=== PATIENT | male | born 1975 | race Caucasian/White ===

== ENCOUNTER 2016-04-05 10:29 | Emergency (ER) | payer BC, OTHER ==
[2016-04-05 10:47] VITALS: BMI 27.4
[2016-04-05] MEDS ORDERED: MAGNESIUM SULF 50% (8.12 MEQ/2 ML-1 GM VIAL) IVPB ONE (11:06)
[2016-04-05] MEDS ORDERED: METOCLOPRAMIDE HCL INJECTION 10 MG/2 ML VIAL IVPUSH ONE (11:06)
[2016-04-05] MEDS ORDERED: SODIUM CHLORIDE 1,000 ML IV ONE (11:06)
[2016-04-05] MEDS ORDERED: MAGNESIUM SULF 50% (8.12 MEQ/2 ML-1 GM VIAL) ONE (11:13)
[2016-04-05] MEDS ORDERED: METOCLOPRAMIDE HCL INJECTION 10 MG/2 ML VIAL ONE (11:13)
[2016-04-05 11:32] LABS: BASOPHIL 1.2 % (0-2.0); EOSINOPHIL 1.4 % (0-4.5); MCH 30.6 pg (25.7-33.7); MCHC 34.1 g/dl (32.0-35.9); MEAN CELL VOLUME 89.9 fl (80-96); NEUTROPHILS 64.1 % (42.8-82.8); PLATELET COUNT 169 K/MM3 (134-434); WHITE BLOOD COUNT 6.5 K/mm3 (4.0-10.0)
--- NOTE | 2016-04-05 11:48 | PDOC ---
History of Present Illness - General History Source: Patient Exam Limitations: No Limitations - History of Present Illness Initial Comments: 04/05/16 11:52 The patient is a 40-year-old male, with a significant past medical history of migraine headaches, hypertension, hypercholesterolemia, gastritis, and irritable bowel syndrome who presents to the emergency department via walk-in for further evaluation of a headache. No fall, recent head trauma. Patient states that his headache feels typical of his usual headaches, which are described as starting at the back of the right side of his neck and radiate to his right eye with associated light sensitivity, right ear difficulty hearing, nausea and vomiting and is pounding in nature. Patient states that his headaches are typically alleviated after taking Imitrex (but has stopped because it makes him feel groggy). He states that his migraine headaches have been intermittent (every two weeks). He states that he typically takes Excedrin and Motrin, falls asleep and this typically resolves his migraine headaches. Patient states that last night, at approximately 23:00, he felt his typical migraine headache. He took two Excedrin tablets and went to bed, He woke up at approximately 03:00 AM this morning, vomited three times(non bloody/bilious), took Motrin. He denies Fever, chills, dizziness, speech difficulty, neck pain or stiffness, numbness, tingling, or weakness to the extremities. Allergies: Levofloxacin. Ciprofloxacin. Past Surgical History: Right SHoulder Arthroscopy. Social History: Current everyday cigarette smoker (approximately 7 cigarettes/ day). No ETOH and recreational drug use. Primary Care Physician: Dr. Vipul Calderon [phone] Neurologist: Dr. Armani Schmidt [phone] <Cynthia Peralta - Last Filed: 04/05/16 13:05> - General History Source: Patient Exam Limitations: No Limitations <Jonathon Amezcua - Last Filed: 04/05/16 14:46> - General Chief Complaint: Migraine Headache Stated Complaint: HEADACHES,MIGRANE Time Seen by Provider: 04/05/16 10:51 Past History <Cynthia Peralta - Last Filed: 04/05/16 13:05> - Past Medical History Anemia: No Asthma: No Cancer: No Cardiac Disorders: No CVA: No COPD: No CHF: No Dementia: No Diabetes: No GI Disorders: Yes (GASTRITIS, IBS, DIVERTICULOSIS) Disorders: No HTN: Yes Hypercholesterolemia: Yes Liver Disease: No Seizures: No Thyroid Disease: No Other medical history: migraine headache - Surgical History Abdominal Surgery: No Appendectomy: No Cardiac Surgery: No Cholecystectomy: No Lung Surgery: No Neurologic Surgery: No Orthopedic Surgery: Yes (RIGHT SHOULDER ARTHROSCOPY) - Psycho/Social/Smoking Cessation Hx Anxiety: No Suicidal Ideation: No Smoking History: Current every day smoker Have you smoked in the past 12 months: Yes Number of Cigarettes Smoked Daily: 7 Information on smoking cessation initiated: Yes 'Breaking Loose' booklet given: 04/05/16 Hx Alcohol Use: No Drug/Substance Use Hx: No Substance Use Type: None Hx Substance Use Treatment: No <Jonathon Amezcua - Last Filed: 04/05/16 14:46> - Past Medical History Allergies/Adverse Reactions: Allergies Allergy/AdvReac Type Severity Reaction Status Date / Time ciprofloxacin Allergy Verified 04/05/16 10:44 levofloxacin [From Levaquin] Allergy Verified 04/05/16 10:44 Home Medications: Ambulatory Orders Aspirin/Acetaminophen/Caffeine [Excedrin Migraine Caplet] 1 each PO PRN PRN Diphenhydramine [Benadryl Capsule -] 50 mg PO QID PRN #20 capsule 09/13/15 Ibuprofen 800 mg PO TID PRN #30 tablet MDD 3 09/13/15 Metoclopramide HCl [Reglan] 10 mg PO TID PRN #20 tablet MDD 3 04/05/16 Review of Systems - Review of Systems Able to Perform ROS?: Yes Comments:: 04/05/16 11:52 CONSTITUTIONAL: No reported: Fever, Chills,Generalized Weakness, Malaise, Loss of Appetite HEENT: Reported: +Photophobia. +Difficulty Hearing of the Right Ear (typically experiences this when he has his migraine headaches). No reported: Rhinorrhea, Nasal Congestion, Throat Pain, Throat Swelling, Difficulty Swallowing, Mouth Swelling, Ear Pain, CARDIOVASCULAR: No reported: Chest Pain, Syncope, Palpitations, Irregular Heart Rate, Lightheadedness, Peripheral Edema RESPIRATORY: No reported: Cough, Shortness of Breath, SOB with Exertion, Orthopnea, Wheezing , Stridor, Hemoptysis GASTROINTESTINAL: No reported: Abdominal pain, Abdominal Distension, Nausea, Vomiting, Diarrhea, Constipation, Melena, Hematochezia GENITOURINARY: No reported: Dysuria, Frequency, Urgency, Hesitancy, Flank Pain, Genital Pain MUSCULOSKELETAL: Reported: Neck Pain. No reported: Myalgia, Arthralgia, Joint Swelling, Back pain , SKIN: No reported: Rash, Itching, Pallor HEMEATOLOGIC/IMMUNOLOGIC: No reported: Easy Bleeding, Easy Bruising, Lymphadenopathy, Frequent infections ENDOCRINE: No reported: Unexplained Weight Gain, Unexplained Weight Loss, Heat Intolerance , Cold Intolerance NEUROLOGIC: Reported: Headache. No reported: Focal Weakness, Paresthesias, Vertigo, Lightheadedness, Unsteady Gait, Seizure, Mental Status Changes, Incontinence PSYCHIATRIC: No reported: Anxiety, Depression <Cynthia Peralta - Last Filed: 04/05/16 13:05> *Physical Exam - Vital Signs Last Vital Signs Temp Pulse Resp BP Pulse Ox 97.9 F 100 H 16 133/81 100 04/05/16 10:44 04/05/16 10:44 04/05/16 10:44 04/05/16 10:44 04/05/16 10:44 - Physical Exam Comments: 04/05/16 11:52 GENERAL: The patient is awake, alert, and fully oriented. Uncomfortable appearing. HEAD: Normocephalic, atraumatic. EYES: pupils 3mm and symmetrically reactive, extraocular movements intact, sclera anicteric, conjunctiva clear. ENT: Normal voice, Moist mucous membranes. NECK: Normal range of motion, supple LUNGS: Breath sounds equal, clear to auscultation bilaterally. No wheezes, no rhonchi, no rales. HEART: Regular rate and rhythm, without murmur, rub or gallop. ABDOMEN: Soft, nontender, normoactive bowel sounds. No guarding, no rebound.No CVA tenderness EXTREMITIES: Normal range of motion, no edema. No clubbing or cyanosis. No cords , erythema, or tenderness. NEUROLOGICAL: No facial assymetry, Normal speech, moving all 4 extremities spontaneously and symmetrically. sensation symmetric in extremities PSYCH: Normal mood, normal affect. SKIN: Warm, Dry, normal turgor. <Cynthia Peralta - Last Filed: 04/05/16 13:05> - Vital Signs Last Vital Signs Temp Pulse Resp BP Pulse Ox 97.9 F 100 H 16 133/81 100 04/05/16 10:44 04/05/16 10:44 04/05/16 10:44 04/05/16 10:44 04/05/16 10:44 <Jonathon Amezcua - Last Filed: 04/05/16 14:46> ED Treatment Course - LABORATORY CBC & Chemistry Diagram: 04/05/16 11:27 04/05/16 11:27 - ADDITIONAL ORDERS Additional order review: 04/05/16 11:27 RBC 4.73 MCV 89.9 MCHC 34.1 RDW 14.0 MPV 9.0 Neutrophils % 64.1 Lymphocytes % 25.9 D Monocytes % 7.4 D Eosinophils % 1.4 Basophils % 1.2 - Medications Given in the ED: ED Medications Discontinued Medications Generic Name Dose Route Start Last Admin Trade Name Freq PRN Reason Stop Dose Admin Metoclopramide HCl 10 mg 04/05/16 11:06 04/05/16 11:27 Reglan Injection - IVPUSH 04/05/16 11:07 10 mg ONCE ONE Administration <Cynthia Peralta - Last Filed: 04/05/16 13:05> - LABORATORY CBC & Chemistry Diagram: 04/05/16 11:27 04/05/16 11:27 - ADDITIONAL ORDERS Additional order review: 04/05/16 11:27 RBC 4.73 MCV 89.9 MCHC 34.1 RDW 14.0 MPV 9.0 Neutrophils % 64.1 Lymphocytes % 25.9 D Monocytes % 7.4 D Eosinophils % 1.4 Basophils % 1.2 - Medications Given in the ED: ED Medications Discontinued Medications Generic Name Dose Route Start Last Admin Trade Name Freq PRN Reason Stop Dose Admin Metoclopramide HCl 10 mg 04/05/16 11:06 04/05/16 11:27 Reglan Injection - IVPUSH 04/05/16 11:07 10 mg ONCE ONE Administration <Jonathon Amezcua - Last Filed: 04/05/16 14:46> Medical Decision Making - Medical Decision Making 04/05/16 11:43 40y M hx of migraine headaches present with headaching on the right side that starts in the back and radiates to behind his eye, is pounding in nature associated with photophobia, nausea/vomiting, similar in nature to previous headaches but more esvere than the headache he gets every 2 weeks. pt states he use to b ricky immitrex but has been off of it for seeral hears. exam unremarkable. lkely migraine headache will treat with reglan and magnesium will reassess A portion of this note was documented by scribe services under my direction. I have reviewed the details of the note, within reason, and agree with the documentation with the following case summary and management plan written by me 04/05/16 14:41 The patient's lab was reviewed and they're unremarkable. The patient's headache has completely resolved. I will discharge patient back to follow up with Dr. Blake as well as neurology. Return precautions were discussed I discussed the physical exam findings, ancillary test results and final diagnoses with the patient. I answered all of the patient's questions. The patient was satisfied with the care received and felt comfortable with the discharge plan and treatment plan. The patient will call their primary care physician within 24 hours to arrange follow-up and will return to the Emergency Department with any new, persistent or worsening symptoms. <Jonathon Amezcua - Last Filed: 04/05/16 14:46> *DC/Admit/Observation/Transfer - Attestations Scribe Attestion: 04/05/16 11:52 Documentation prepared by Cynthia Peralta, acting as medical data analyst for Jonathon Amezcua MD. <Cynthia Peralta - Last Filed: 04/05/16 13:05> - Discharge Dispostion Admit: No <Jonathon Amezcua - Last Filed: 04/05/16 14:46> Diagnosis at time of Disposition: Migraine Qualifiers: Migraine type: with aura Status migrainosus presence: without status migrainosus Intractability: not intractable Qualified Code(s): G43.109 - Migraine with aura, not intractable, without status migrainosus - Discharge Dispostion Disposition: HOME Condition at time of disposition: Improved - Prescriptions Prescriptions: Metoclopramide HCl [Reglan] 10 mg PO TID PRN #20 tablet MDD 3 PRN Reason: migraine - Referrals Referrals: Vipul Calderon MD [Primary Care Provider] - Armani Schmidt MD [Staff Physician] - - Patient Instructions Printed Discharge Instructions: DI for Migraine Additional Instructions: Return to the emergency department immediately with ANY new, persistent or worsening symptoms including headache or other concerns. You MUST call and follow up with your doctor and neurologist within 5 days for further evaluation of your symptoms. Results were discussed with you. Please make sure your doctor reviews the results of your emergency evaluation. Print Language: CUBAN
[2016-04-05 12:03] LABS: ALK PHOS 114 U/L (45-117); ANION GAP 8 (8-16); BILIRUBIN,TOTAL 0.3 mg/dL (0.2-1.0); CALCIUM 9.2 mg/dL (8.5-10.1); CO2 25 mmol/L (21-32); CREATININE 1.1 mg/dL (0.7-1.3); GLUCOSE,RANDOM 95 mg/dL (74-106); SGOT/AST 27 U/L (15-37); SGPT/ALT 33 U/L (12-78); TOT PROT 7.3 g/dl (6.4-8.2)
[2016-04-05] MEDS ORDERED: KETOROLAC TROMETHAMINE 30 MG/1 ML VIAL IVPUSH ONE (12:45)
[2016-04-05] MEDS ORDERED: KETOROLAC TROMETHAMINE 30 MG/1 ML VIAL ONE (12:46)
[2016-04-05 14:27] VITALS: BP 128/89; PULSE 77; TEMP 98.7
== END 2016-04-05 14:52 | disposition home or self-care (01) ==
LOC: JER 10:29
PROC: 3E0333Z Introduction of Anti-inflammatory into Peripheral Vein, Percutaneous Approach (ICD-10-PCS; principal; 2016-04-05)
PROC: 3E033GC Introduction of Other Therapeutic Substance into Peripheral Vein, Percutaneous Approach (ICD-10-PCS; 2016-04-05)
PROC: 3E0337Z Introduction of Electrolytic and Water Balance Substance into Peripheral Vein, Percutaneous Approach (ICD-10-PCS; 2016-04-05)
DX: G43.109 Migraine with aura, not intractable, without status migrainosus (principal); F17.210 Nicotine dependence, cigarettes, uncomplicated; I10 Essential (primary) hypertension; E78.00 Pure hypercholesterolemia, unspecified
CPT/HCPCS: 36415; 80053; 85025; 99283-25

== ENCOUNTER 2017-01-08 08:47 | Emergency (ER) | payer BC, OTHER ==
[2017-01-08 08:57] VITALS: TEMP 99.5; BMI 29.0
--- NOTE | 2017-01-08 09:02 | PDOC ---
History of Present Illness - History of Present Illness Initial Comments: 01/08/17 09:39 The patient is a 41 year old male, with a significant past medical history of migraines, who presents to the emergency department with headache and left sided chest pain. Patient states that on Friday he stood up from his chair, felt dizzy, tried to grab the wall but couldn't catch himself and fell. He states he hit his head and the right side of the back of his neck. He denies loss of consciousness. He woke up this morning with an intense, pounding migraine. He is light-sensitive but not sound sensitive. He says he took Reglan and Benadryl around 3am but it hasn't helped his symptoms. He states he has been getting headaches every other week seemingly. He states this is the worse it has gotten. He is also complaining of left-sided chest pain that worsens when he inhales. He states he has never experienced this chest pain before. He is sweating and very anxious-appearing. He denies any recent fevers or chills. He denies any recent nausea, vomit, diarrhea or constipation. He denies any recent shortness of breath. He denies any recent dysuria, frequency, urgency or hematuria. Allergies: Cipro, Levaquin Past surgical history: None reported. Neurologist: Dr. Schmidt <Neelima Strange - Last Filed: 01/08/17 09:39> <Mikala Gleason - Last Filed: 01/08/17 13:57> - General Chief Complaint: Headache Stated Complaint: CHEST PAIN, MIGRAINES Time Seen by Provider: 01/08/17 08:58 Past History <Neelima Strange - Last Filed: 01/08/17 09:39> - Past Medical History Anemia: No Asthma: No Cancer: No Cardiac Disorders: No CVA: No COPD: No CHF: No Dementia: No Diabetes: No GI Disorders: Yes (GASTRITIS, IBS, DIVERTICULOSIS) Disorders: No HTN: No Hypercholesterolemia: No Liver Disease: No Seizures: No Thyroid Disease: No - Surgical History Abdominal Surgery: No Appendectomy: No Cardiac Surgery: No Cholecystectomy: No Lung Surgery: No Neurologic Surgery: No Orthopedic Surgery: Yes (RIGHT SHOULDER ARTHROSCOPY) - Suicide/Smoking/Psychosocial Hx Smoking History: Never smoked Have you smoked in the past 12 months: Yes Number of Cigarettes Smoked Daily: 7 'Breaking Loose' booklet given: 04/05/16 Hx Alcohol Use: No Drug/Substance Use Hx: No Substance Use Type: None Hx Substance Use Treatment: No <Mikala Gleason - Last Filed: 01/08/17 13:57> - Past Medical History Allergies/Adverse Reactions: Allergies Allergy/AdvReac Type Severity Reaction Status Date / Time ciprofloxacin Allergy Verified 01/08/17 08:57 levofloxacin [From Levaquin] Allergy Verified 01/08/17 08:57 Home Medications: Ambulatory Orders Aspirin/Acetaminophen/Caffeine [Excedrin Migraine Caplet] 1 each PO PRN PRN Diphenhydramine [Benadryl Capsule -] 50 mg PO QID PRN #20 capsule 09/13/15 Metoclopramide HCl [Reglan] 10 mg PO TID PRN #20 tablet MDD 3 04/05/16 Ibuprofen 800 mg PO TID PRN MDD 3 01/08/17 Methadone [Dolophine -] 40 mg PO DAILY 01/08/17 Sumatriptan Succinate [Imitrex] 50 mg PO ONCE PRN #5 tablet 01/08/17 Review of Systems - Review of Systems Comments:: 01/08/17 09:39 GENERAL/CONSTITUTIONAL: +chills.No fever No weakness. HEAD, EYES, EARS, NOSE AND THROAT: No change in vision. No ear pain or discharge. No sore throat. GASTROINTESTINAL: No nausea, vomiting, diarrhea or constipation. GENITOURINARY: No dysuria, frequency, or change in urination. CARDIOVASCULAR: +chest pain, no shortness of breath. RESPIRATORY: No cough, wheezing, or hemoptysis. MUSCULOSKELETAL: No joint or muscle swelling or pain. No neck or back pain. SKIN: No rash NEUROLOGIC: + headache, +vertigo, no loss of consciousness, or change in strength/sensation. ENDOCRINE: No increased thirst. No abnormal weight change. HEMATOLOGIC/LYMPHATIC: No anemia, easy bleeding, or history of blood clots. ALLERGIC/IMMUNOLOGIC: No hives or skin allergy. <Neelima Strange - Last Filed: 01/08/17 09:39> *Physical Exam - Vital Signs Last Vital Signs Temp Pulse Resp BP Pulse Ox 99.5 F 108 H 20 142/91 100 01/08/17 08:54 01/08/17 08:54 01/08/17 08:54 01/08/17 08:54 01/08/17 08:54 - Physical Exam Comments: 01/08/17 09:39 GENERAL: Having an anxiety attack, hyperventilating, panicked. Keeps saying I feel very nervous HEAD: No signs of trauma EYES: PERRLA, EOMI, sclera anicteric, conjunctiva clear ENT: Auricles normal inspection, hearing grossly normal, nares patent, oropharynx clear without exudates. Moist mucosa NECK: Normal ROM, supple, no lymphadenopathy, JVD, or masses LUNGS: Breath sounds equal, clear to auscultation bilaterally. No wheezes, and no crackles HEART: Regular rate and rhythm, normal S1 and S2, no murmurs, rubs or gallops ABDOMEN: Soft, nontender, normoactive bowel sounds. No guarding, no rebound. No masses EXTREMITIES: Normal range of motion, no edema. No clubbing or cyanosis. No cords, erythema, or tenderness NEUROLOGICAL: Cranial nerves II through XII grossly intact. Normal speech, normal gait SKIN: Warm, Dry, normal turgor, no rashes or lesions noted. <Neelima Strange - Last Filed: 01/08/17 09:39> - Vital Signs Last Vital Signs Temp Pulse Resp BP Pulse Ox 99.5 F 108 H 20 142/91 100 01/08/17 08:54 01/08/17 08:54 01/08/17 08:54 01/08/17 08:54 01/08/17 08:54 <Mikala Gleason - Last Filed: 01/08/17 13:57> Heart Score/ECG Review - ECG Intrepretation Comment:: 01/08/17 09:52 sinus tach 102, nl axis, nl interval, no acute st/t wave findings <Mikala Gleason - Last Filed: 01/08/17 13:57> ED Treatment Course - Medications Given in the ED: ED Medications Discontinued Medications Generic Name Dose Route Start Last Admin Trade Name Freq PRN Reason Stop Dose Admin Acetaminophen/Butalbital/Caffeine 1 tablet 01/08/17 09:10 01/08/17 09:36 Fioricet - PO 01/08/17 09:11 1 tablet ONCE ONE Administration Diphenhydramine HCl 12.5 mg 01/08/17 09:10 01/08/17 09:33 Benadryl Injection - IVPUSH 01/08/17 09:11 12.5 mg ONCE ONE Administration Metoclopramide HCl 10 mg 01/08/17 09:10 01/08/17 09:35 Reglan Injection - IVPUSH 01/08/17 09:11 10 mg ONCE ONE Administration Sodium Chloride 1,000 ml 01/08/17 09:10 01/08/17 09:35 Normal Saline - IV 01/08/17 09:11 1,000 ml ONCE ONE Administration <Neelima Strange - Last Filed: 01/08/17 09:39> - LABORATORY CBC & Chemistry Diagram: 01/08/17 09:00 01/08/17 09:24 <Mikala Gleason - Last Filed: 01/08/17 13:57> Medical Decision Making - Medical Decision Making 01/08/17 09:31 a/p: 41yo male with lisa since friday -trauma friday where he fell and hit his head -has been taking migraine meds since (reglan and benadryl). last use was overnight last night around 3 am -labs, head ct given trauma -neuro intact -iv meds, fioricet, reassess -follows with Dr. Schmidt and has an appt for the . -hx of migraines in the past - used to take imitrex. 01/08/17 12:36 re-eval: improved but still w lisa. neuro intact. discussed imaging results with the patient and lab results. will remedicate. case discussed with DR. Schmidt who agrees with the plan, ok to d/c w imitrex and to keep appt friday w him in the office. discussed CT findings. Will follow up. 01/08/17 13:53 LISA is resolved. Pt smiling. Sitting up. stable for d/c to home. Discussed need to follow up with neurology. answered all questions. <Mikala Gleason - Last Filed: 01/08/17 13:57> *DC/Admit/Observation/Transfer - Attestations Scribe Attestion: 01/08/17 09:40 Documentation prepared by Neelima Strange, acting as veterinary medical officer for Mikala Gleason DO. <Neelima Strange - Last Filed: 01/08/17 09:39> - Discharge Dispostion Admit: No - Attestations Physician Attestion: 01/08/17 13:57 I, Dr. Mikala Gleason DO, attest that this document has been prepared under my direction and personally reviewed by me in its entirety. I further attest, that it accurately reflects all work, treatment, procedures and medical decision -making performed by me. <Mikala Gleason - Last Filed: 01/08/17 13:57> Diagnosis at time of Disposition: Migraine - Discharge Dispostion Disposition: HOME Condition at time of disposition: Stable - Prescriptions Prescriptions: Sumatriptan Succinate [Imitrex] 50 mg PO ONCE PRN #5 tablet PRN Reason: Headache - Referrals Referrals: Vipul Calderon MD [Primary Care Provider] - Armani Schmidt MD [Staff Physician] - - Patient Instructions Printed Discharge Instructions: DI for Migraine Additional Instructions: Please keep your appointment with Dr. Schmidt. Please follow up with your PMD. Please return to the ED with any further concerns. - Post Discharge Activity Forms/Work/School Notes: Back to Work
[2017-01-08] MEDS ORDERED: ACETAMINOPHEN/CAFFEINE/BUTALBITAL 1 TAB PO ONE (09:10)
[2017-01-08] MEDS ORDERED: METOCLOPRAMIDE HCL INJECTION 10 MG/2 ML VIAL IVPUSH ONE (09:10)
[2017-01-08] MEDS ORDERED: SODIUM CHLORIDE 0.9% 1000 ML INFUS.BAG IV ONE ×2 (09:10→12:34)
[2017-01-08] MEDS ORDERED: METOCLOPRAMIDE HCL INJECTION 10 MG/2 ML VIAL ONE (09:29)
[2017-01-08 09:46] LABS: BASOPHIL 0.8 % (0-2.0); EOSINOPHIL 0.3 % (0-4.5); MCH 30.4 pg (25.7-33.7); MCHC 33.5 g/dl (32.0-35.9); MEAN CELL VOLUME 90.8 fl (80-96); MEAN PLT VOLUME 9.1 fl (7.5-11.1); NEUTROPHILS 84.2 % (42.8-82.8); PLATELET COUNT 195 K/MM3 (134-434); RDW 13.5 % (11.9-15.9); WHITE BLOOD COUNT 11.5 K/mm3 (4.0-10.0)
[2017-01-08 10:06] LABS: ANION GAP 9 (8-16); CALCIUM 8.7 mg/dL (8.5-10.1); CO2 23 mmol/L (21-32); CREATININE 1.2 mg/dL (0.7-1.3); GLUCOSE,RANDOM 120 mg/dL (74-106); MAGNESIUM 1.8 mg/dL (1.8-2.4); SGOT/AST 14 U/L (15-37); SGPT/ALT 25 U/L (12-78)
[2017-01-08 10:08] LABS: ALK PHOS 101 U/L (45-117); BILIRUBIN,TOTAL 0.4 mg/dL (0.2-1.0); TOT PROT 7.4 g/dl (6.4-8.2)
[2017-01-08] MEDS ORDERED: ONDANSETRON *ODT* 4 MG TABLET ONE (10:29)
--- NOTE | 2017-01-08 11:37 | EKG ---
Test Reason : Blood Pressure : / mmHG Vent. Rate : 102 BPM Atrial Rate : 102 BPM P-R Int : 140 ms QRS Dur : 092 ms QT Int : 346 ms P-R-T Axes : 067 083 058 degrees QTc Int : 450 ms SINUS TACHYCARDIA POSSIBLE LEFT ATRIAL ENLARGEMENT BORDERLINE ECG WHEN COMPARED WITH ECG OF 23-JUN-2010 20:34, NO SIGNIFICANT CHANGE WAS FOUND Confirmed by ADOLFO HESTER MD ([id number]) on 01/08/2017 11:37:20 AM Referred By: Confirmed By:ADOLFO HESTER MD
[2017-01-08] MEDS ORDERED: DEXAMETHASONE SOD PHOSPHATE 10 MG/1 ML VIAL IVPUSH ONE (12:34)
[2017-01-08] MEDS ORDERED: KETOROLAC TROMETHAMINE 30 MG/1 ML VIAL IVPUSH ONE (12:34)
[2017-01-08] MEDS ORDERED: MAGNESIUM SULF 50% (8.12 MEQ/2 ML-1 GM VIAL) IVPB ONE (12:35)
[2017-01-08] MEDS ORDERED: DEXAMETHASONE SOD PHOSPHATE 10 MG/1 ML VIAL ONE (12:41)
[2017-01-08] MEDS ORDERED: KETOROLAC TROMETHAMINE 30 MG/1 ML VIAL ONE (12:42)
[2017-01-08] MEDS ORDERED: MAGNESIUM SULF 50% (8.12 MEQ/2 ML-1 GM VIAL) ONE (12:42)
[2017-01-08 14:12] VITALS: BP 135/71; PULSE 85
== END 2017-01-08 14:12 | disposition home or self-care (01) ==
LOC: JER 08:47
PROC: 3E0337Z Introduction of Electrolytic and Water Balance Substance into Peripheral Vein, Percutaneous Approach (ICD-10-PCS; principal; 2017-01-08)
PROC: 3E033GC Introduction of Other Therapeutic Substance into Peripheral Vein, Percutaneous Approach (ICD-10-PCS; 2017-01-08)
PROC: 3E0333Z Introduction of Anti-inflammatory into Peripheral Vein, Percutaneous Approach (ICD-10-PCS; 2017-01-08)
DX: G43.909 Migraine, unspecified, not intractable, without status migrainosus (principal); F17.210 Nicotine dependence, cigarettes, uncomplicated; K58.9 Irritable bowel syndrome, unspecified
CPT/HCPCS: 36415; 70450-TC; 71020-TC; 80053; 83735; 85025; 93005; 93010; 99283-25

== ENCOUNTER 2017-01-09 07:43 | Inpatient (IN) | payer OTHER ==
[2017-01-09 08:03] VITALS: BMI 29.0
--- NOTE | 2017-01-09 08:52 | PDOC ---
Attending Attestation - Resident Resident Name: González Marion - HPI HPI: 01/11/17 19:49 Pt presents to the ED complaining of headache consistent with previous migraine. Seen in the ED for the same complaint yesterday, felt improved after multiple doses of medication in the ED, discharged with immitrex, which he took today without relief. Patient is now extremely uncomfortable. - Physicial Exam PE: 01/11/17 19:50 Agree with resident exam . PAtient is extremely uncomfortable but is neurologically intact. - Medical Decision Making 01/11/17 19:51 Pt presents to the ED complaining of acute exacerbation of his chronic migraine. Headache is recurrent after extensive treatment yesterday. Will admit to observation for pain control for status migranius.
[2017-01-09] MEDS ORDERED: PROCHLORPERAZINE MALEATE 5 MG TABLET PO ONE (09:25)
[2017-01-09] MEDS ORDERED: KETOROLAC TROMETHAMINE 60 MG/2 ML VIAL IM ONE (09:28)
--- NOTE | 2017-01-09 09:28 | PDOC ---
History of Present Illness - General Chief Complaint: Headache Stated Complaint: PAIN TO HEAD F/UP ER VST 01/08/17 Time Seen by Provider: 01/09/17 08:33 - History of Present Illness Initial Comments: 01/09/17 09:23 41 yo M with h/o migraines who returns to ED for migraine. Patient reports left sided pulsating head pain, radiating down left sided neck to left arm with subsequent numbness/tingling beginning yesterday evening. Reports that this is the worst headache he has experienced, with gradual onset and worsening intensity. Endorses non biliary non bloody emesis, photophobia, and visual halos since yesterday evening. Denies fevers/chills, neck stiffness, weakness, chest pain, SOB, urinary complaints, GI/abdominal complaints.Recently seen in ED ( 01/09) for migraine and symptom control. Was treated with Toradol, Compazine, Reglan, Benadryl, Zofran, Dexamethasone, Magnesium sulfate with improvement in symptoms and sent home on Sumitripatan and told to f/u with neurology Friday. Negative head CT ( 01/08). Since d/c has attempted Reglan Benadryl Ibrupfrofen, and Sumitrptan 50 mg PO x 1 with no improvement in symptoms. Reports that he last saw Dr. Wilkerson 10 years ago and since then his LISA's have been treatable with Reglan, Benadryl, Ibriuofren, but since his fall ( 01/03 ) has been experiencing new onset L temporal pain and shooting down neck and L arm. PCP Dr. Vipul Calderon. Last took Sumitriptan 10 years ago. Scheduled for neurology apt. with dean Jan 23 n, Past History - Past Medical History Allergies/Adverse Reactions: Allergies Allergy/AdvReac Type Severity Reaction Status Date / Time ciprofloxacin Allergy Verified 01/09/17 07:59 levofloxacin [From Levaquin] Allergy Verified 01/09/17 07:59 Home Medications: Ambulatory Orders Aspirin/Acetaminophen/Caffeine [Excedrin Migraine Caplet] 1 each PO PRN PRN Diphenhydramine [Benadryl Capsule -] 50 mg PO QID PRN #20 capsule 09/13/15 Metoclopramide HCl [Reglan] 10 mg PO TID PRN #20 tablet MDD 3 04/05/16 Ibuprofen 800 mg PO TID PRN MDD 3 01/08/17 Methadone [Dolophine -] 40 mg PO DAILY 01/08/17 Sumatriptan Succinate [Imitrex] 50 mg PO ONCE PRN #5 tablet 01/08/17 Anemia: No Asthma: No Cancer: No Cardiac Disorders: No CVA: No COPD: No CHF: No Dementia: No Diabetes: No GI Disorders: Yes (GASTRITIS, IBS, DIVERTICULOSIS) Disorders: No HTN: No Hypercholesterolemia: No Liver Disease: No Seizures: No Thyroid Disease: No Other medical history: MIGRANES - Surgical History Abdominal Surgery: No Appendectomy: No Cardiac Surgery: No Cholecystectomy: No Lung Surgery: No Neurologic Surgery: No Orthopedic Surgery: Yes (RIGHT SHOULDER ARTHROSCOPY) - Suicide/Smoking/Psychosocial Hx Smoking History: Former smoker Have you smoked in the past 12 months: Yes Number of Cigarettes Smoked Daily: 7 Information on smoking cessation initiated: No 'Breaking Loose' booklet given: 04/05/16 Hx Alcohol Use: No Drug/Substance Use Hx: No Substance Use Type: None Hx Substance Use Treatment: No Review of Systems - Review of Systems Comments:: 01/09/17 09:46 GENERAL/CONSTITUTIONAL: No fever or chills. No weakness. HEAD, EYES, EARS, NOSE AND THROAT: No change in vision. No ear pain or discharge. No sore throat.- CARDIOVASCULAR: No chest pain or shortness of breath RESPIRATORY: No cough, wheezing, or hemoptysis. GASTROINTESTINAL: No nausea, vomiting, diarrhea or constipation. GENITOURINARY: No dysuria, frequency, or change in urination. MUSCULOSKELETAL: No joint or muscle swelling or pain. No neck or back pain. SKIN: No rash NEUROLOGIC:+ headache,change in strength/sensation.. No vertigo, loss of consciousness. ENDOCRINE: No increased thirst. No abnormal weight change HEMATOLOGIC/LYMPHATIC: No anemia, easy bleeding, or history of blood clots. ALLERGIC/IMMUNOLOGIC: No hives or skin allergy. *Physical Exam - Vital Signs Last Vital Signs Temp Pulse Resp BP Pulse Ox 98.8 F 94 H 19 133/83 99 01/09/17 07:59 01/09/17 07:59 01/09/17 07:59 01/09/17 07:59 01/09/17 07:59 - Physical Exam Comments: 01/09/17 09:46 GENERAL: Awake, alert, and fully oriented, in distress. HEAD: No signs of trauma, normocephalic, atraumatic EYES: PERRLA, EOMI, sclera anicteric, conjunctiva clear ENT: hearing grossly normal, nares patent, oropharynx clear without exudates. Moist mucosa NECK: Normal ROM, supple, no JVD, or masses LUNGS: No distress, speaks full sentences, clear to auscultation bilaterally HEART: Regular rate and rhythm, normal S1 and S2, no murmurs, rubs or gallops, peripheral pulses normal and equal bilaterally. EXTREMITIES : Normal inspection, Normal range of motion, no edema. No clubbing or cyanosis. NEUROLOGICAL: Cranial nerves II through XII grossly intact. Normal speech, normal gait, no focal sensorimotor deficits SKIN: Warm, Dry, normal turgor, no rashes or lesions noted. ED Treatment Course - LABORATORY CBC & Chemistry Diagram: 01/09/17 09:30 01/09/17 09:30 Medical Decision Making - Medical Decision Making 01/09/17 09:50 41 yo M with h/o migraines who returns to ED with worsening left sided pulsating headache radiating down left temporal head, L sided neck and arm with subsequent numbness/tingling beginning yesterday evening. Asx. with multiple episodes of non biliary, non bloody emesis. Recently seen in ED (01/09) for migraine and symptom control. ED Course ( 01/08) notable for negative head CT and treatment with Toradol, Compazine, Reglan, Benadryl, Zofran, Dexamethasone , and Magnesium sulfate with resolution of symptoms, LISA abolished. Was sent home on Sumitripatan and told to f/u with neurology Friday. Today at bedside is in distress, crying, Neuro exam benign. Hemodyanamically stable. Patient is likely admit for status migranous observation/pain control. Low suspicion for SAH. CT HEAD ( 01/08) Neg. PCP Dr. Vipul Calderon. 01/09/17 10:20 ED Course: Compazine, Toradol, Diphenhydramine, Reglan, NS 1 L IV 01/09/17 10:21 WBC: 18.1 CMP: Unremarkable 01/09/17 10:22 01/09/17 10:[address] Androne will admit for OBS/pain control *DC/Admit/Observation/Transfer Diagnosis at time of Disposition: Migraine headache with aura Qualifiers: Status migrainosus presence: with status migrainosus Intractability: not intractable Qualified Code(s): G43.101 - Migraine with aura, not intractable, with status migrainosus - Discharge Dispostion Condition at time of disposition: Stable Admit: Yes - Referrals - Patient Instructions - Post Discharge Activity
[2017-01-09] MEDS ORDERED: METOCLOPRAMIDE HCL INJECTION 10 MG/2 ML VIAL IVPUSH ONE (09:30)
[2017-01-09] MEDS ORDERED: KETOROLAC TROMETHAMINE 30 MG/1 ML VIAL IVPUSH ONE (09:37)
[2017-01-09] MEDS ORDERED: METOCLOPRAMIDE HCL INJECTION 10 MG/2 ML VIAL ONE (09:40)
[2017-01-09] MEDS ORDERED: KETOROLAC TROMETHAMINE 30 MG/1 ML VIAL ONE ×2 (09:40→13:15)
[2017-01-09 09:41] LABS: BASOPHIL 0.7 % (0-2.0); MCH 30.2 pg (25.7-33.7); MCHC 33.7 g/dl (32.0-35.9); MEAN CELL VOLUME 89.7 fl (80-96); MEAN PLT VOLUME 9.1 fl (7.5-11.1); NEUTROPHILS 78.6 % (42.8-82.8); PLATELET COUNT 218 K/MM3 (134-434); RDW 13.2 % (11.9-15.9); WHITE BLOOD COUNT 18.1 K/mm3 (4.0-10.0)
[2017-01-09] MEDS ORDERED: SODIUM CHLORIDE 1,000 ML IV STA (09:42)
[2017-01-09 10:06] LABS: ALBUMIN 4.2 g/dl (3.4-5.0); ANION GAP 10 (8-16); BILIRUBIN,TOTAL 0.6 mg/dL (0.2-1.0); CALCIUM 9.4 mg/dL (8.5-10.1); CO2 22 mmol/L (21-32); CREATININE 1.2 mg/dL (0.7-1.3); GLUCOSE,RANDOM 89 mg/dL (74-106); SGOT/AST 12 U/L (15-37); SGPT/ALT 25 U/L (12-78); TOT PROT 7.7 g/dl (6.4-8.2)
[2017-01-09 10:07] LABS: ALK PHOS 103 U/L (45-117)
[2017-01-09] MEDS ORDERED: SODIUM CHLORIDE 1,000 ML IV SCH (12:00)
[2017-01-09] MEDS ORDERED: METOCLOPRAMIDE HCL INJECTION 10 MG/2 ML VIAL IVPUSH PRN (12:51)
[2017-01-09] MEDS ORDERED: PANTOPRAZOLE SODIUM 40 MG/100 ML BAG IVPB ONE (13:14)
[2017-01-09] MEDS: KETOROLAC TROMETHAMINE 30 MG/1 ML VIAL IM PRN ×2 (13:20→22:08)
[2017-01-09] MEDS: PANTOPRAZOLE SODIUM 40 MG VIAL IVPUSH SCH (13:24)
--- NOTE | 2017-01-09 14:40 | CONSULT ---
Consult - text type - Consultation Consultation Note: Neurology History of Present Illness 41 yo M with h/o migraines who returned to ED for ongoing migraine. He reports right sided pulsating head pain, radiating down right side of the neck to right arm with subsequent numbness/tingling beginning yesterday evening. He reports the symptoms were with gradual onset and worsening intensity. Endorses non biliary non bloody emesis, photophobia, and visual halos since yesterday evening. Denies fevers/chills, neck stiffness, weakness, chest pain, SOB, urinary complaints, GI/abdominal complaints. Recently seen in ED ( 01/09) for migraine and symptom control. Was treated with Toradol, Compazine, Reglan, Benadryl, Zofran, Dexamethasone, Magnesium sulfate with improvement in symptoms and sent home on Sumitripatan and told to f/u with me on Friday. Negative head CT ( 01/08). Since d/c has attempted Reglan Benadryl Ibrupfrofen, and Sumitrptan 50 mg PO x 1 with no improvement in symptoms. during my encounter, he also endorsed symptoms of cervicalgia and cervical radiculopathaolopy and we discussed further imaging for this. We'll order an MRI of the cervical spine, though this may be his continued status migranosis. Past History - Past Medical History Allergies/Adverse Reactions: Allergies Allergy/AdvReac Type Severity Reaction Status Date / Time ciprofloxacin Allergy Verified 01/09/17 07:59 levofloxacin [From Levaquin] Allergy Verified 01/09/17 07:59 Home Medications: Ambulatory Orders Aspirin/Acetaminophen/Caffeine [Excedrin Migraine Caplet] 1 each PO PRN PRN Diphenhydramine [Benadryl Capsule -] 50 mg PO QID PRN #20 capsule 09/13/15 Metoclopramide HCl [Reglan] 10 mg PO TID PRN #20 tablet MDD 3 04/05/16 Ibuprofen 800 mg PO TID PRN MDD 3 01/08/17 Methadone [Dolophine -] 40 mg PO DAILY 01/08/17 Sumatriptan Succinate [Imitrex] 50 mg PO ONCE PRN #5 tablet 01/08/17 Anemia: No Asthma: No Cancer: No Cardiac Disorders: No CVA: No COPD: No CHF: No Dementia: No Diabetes: No GI Disorders: Yes (GASTRITIS, IBS, DIVERTICULOSIS) Disorders: No HTN: No Hypercholesterolemia: No Liver Disease: No Seizures: No Thyroid Disease: No Other medical history: MIGRANES - Surgical History Abdominal Surgery: No Appendectomy: No Cardiac Surgery: No Cholecystectomy: No Lung Surgery: No Neurologic Surgery: No Orthopedic Surgery: Yes (RIGHT SHOULDER ARTHROSCOPY) - Suicide/Smoking/Psychosocial Hx Smoking History: Former smoker Have you smoked in the past 12 months: Yes Number of Cigarettes Smoked Daily: 7 Information on smoking cessation initiated: No 'Breaking Loose' booklet given: 04/05/16 Hx Alcohol Use: No Drug/Substance Use Hx: No Substance Use Type: None Hx Substance Use Treatment: No Review of Systems GENERAL/CONSTITUTIONAL: No fever or chills. No weakness. HEAD, EYES, EARS, NOSE AND THROAT: No change in vision. No ear pain or discharge. No sore throat.- CARDIOVASCULAR: No chest pain or shortness of breath RESPIRATORY: No cough, wheezing, or hemoptysis. GASTROINTESTINAL: No nausea, vomiting, diarrhea or constipation. GENITOURINARY: No dysuria, frequency, or change in urination. MUSCULOSKELETAL: No joint or muscle swelling or pain. No neck or back pain. SKIN: No rash NEUROLOGIC:+ headache,change in strength/sensation.. No vertigo, loss of consciousness. ENDOCRINE: No increased thirst. No abnormal weight change HEMATOLOGIC/LYMPHATIC: No anemia, easy bleeding, or history of blood clots. ALLERGIC/IMMUNOLOGIC: No hives or skin allergy. *Physical Exam - Vital Signs Last Vital Signs Temp Pulse Resp BP Pulse Ox 98.8 F 94 H 19 133/83 99 01/09/17 07:59 01/09/17 07:59 01/09/17 07:59 01/09/17 07:59 01/09/17 07:59 GENERAL: Awake, alert, and fully oriented, in distress. HEAD: No signs of trauma, normocephalic, atraumatic EYES: PERRLA, EOMI, sclera anicteric, conjunctiva clear ENT: hearing grossly normal, nares patent, oropharynx clear without exudates. Moist mucosa NECK: Normal ROM, supple, no JVD, or masses LUNGS: No distress, speaks full sentences, clear to auscultation bilaterally HEART: Regular rate and rhythm, normal S1 and S2, no murmurs, rubs or gallops, peripheral pulses normal and equal bilaterally. EXTREMITIES : Normal inspection, Normal range of motion, no edema. No clubbing or cyanosis. NEUROLOGICAL: Cranial nerves II through XII grossly intact. Normal speech, no focal sensorimotor deficits SKIN: Warm, Dry, normal turgor, no rashes or lesions noted. CBCD WBC 18.1 K/mm3 (4.0-10.0) H D 01/09/17 09:30 RBC 5.09 M/mm3 (4.00-5.60) 01/09/17 09:30 Hgb 15.4 GM/dL (11.7-16.9) 01/09/17 09:30 Hct 45.6 % (35.4-49) 01/09/17 09:30 MCV 89.7 fl (80-96) 01/09/17 09:30 MCHC 33.7 g/dl (32.0-35.9) 01/09/17 09:30 RDW 13.2 % (11.9-15.9) 01/09/17 09:30 Plt Count 218 K/MM3 (134-434) 01/09/17 09:30 MPV 9.1 fl (7.5-11.1) 01/09/17 09:30 CMP Sodium 141 mmol/L (136-145) 01/09/17 09:30 Potassium 3.6 mmol/L (3.5-5.1) 01/09/17 09:30 Chloride 109 mmol/L (98-107) H 01/09/17 09:30 Carbon Dioxide 22 mmol/L (21-32) 01/09/17 09:30 Anion Gap 10 (8-16) 01/09/17 09:30 BUN 13 mg/dL (7-18) 01/09/17 09:30 Creatinine 1.2 mg/dL (0.7-1.3) 01/09/17 09:30 Creat Clearance w eGFR > 60 (>60) 01/09/17 09:30 Calcium 9.4 mg/dL (8.5-10.1) 01/09/17 09:30 Total Bilirubin 0.6 mg/dL (0.2-1.0) D 01/09/17 09:30 AST 12 U/L (15-37) L 01/09/17 09:30 ALT 25 U/L (12-78) 01/09/17 09:30 Alkaline Phosphatase 103 U/L (45-117) 01/09/17 09:30 Total Protein 7.7 g/dl (6.4-8.2) 01/09/17 09:30 Albumin 4.2 g/dl (3.4-5.0) 01/09/17 09:30 Medical Decision Making 41 yo M with h/o migraines who returned to ED for ongoing migraine. He reports right sided pulsating head pain, radiating down right side of the neck to right arm with subsequent numbness/tingling beginning yesterday evening. He reports the symptoms were with gradual onset and worsening intensity. Endorses non biliary non bloody emesis, photophobia, and visual halos since yesterday evening. Denies fevers/chills, neck stiffness, weakness, chest pain, SOB, urinary complaints, GI/abdominal complaints. Recently seen in ED ( 01/09) for migraine and symptom control. Was treated with Toradol, Compazine, Reglan, Benadryl, Zofran, Dexamethasone, Magnesium sulfate with improvement in symptoms and sent home on Sumitripatan and told to f/u with me on Friday. Negative head CT ( 01/08). Since d/c has attempted Reglan Benadryl Ibrupfrofen, and Sumitrptan 50 mg PO x 1 with no improvement in symptoms. during my encounter, he also endorsed symptoms of cervicalgia and cervical radiculopathaolopy and we discussed further imaging for this. We'll order an MRI of the cervical spine, though this may be his continued status migranosis. Can use similar regiment as yesterday with Decadron IV 10mg, Depakene 1gm Will order MRI C spine to further evaluate cervicalgia and cervical radiculopathy Relaxation recommended Continue adequate hydration and by mouth intake Avoid any migraine triggers Pain control
[2017-01-09] MEDS: ACETAMINOPHEN 325 MG TABLET (FP) PO PRN (16:50)
[2017-01-09] MEDS: ONDANSETRON 4 MG/2 ML VIAL IVPB PRN (17:49)
--- NOTE | 2017-01-09 22:25 | HP ---
Admitting History and Physical - Primary Care Physician PCP: Vipul Calderon - Admission Chief Complaint: LISA History of Present Illness: Pt with Hx/o migraines, fell on Friday (4 days ago) hit right side of the head; pt started to develop LISA and treated at home. Yesterday he came to ER c/o severe LISA, had negative for acute injury Head CT scan, was treated in ER (with IV medication, including steroids) with improvement in LISA and DC'ed home. Last night his LISA got progressively worse ( LISA on the right side of the head, radiates to the back of the neck, and is associated with severe photophobia and blurry vision and numbness of the right arm); pt returned this AM to ER. Pt w/o fever, chills, neck stifness, running nose, confusion, motor weakness. Pt didn't see Neuro in many years, has an appt at the end of this month with Dr. Schmidt. History Source: Patient, Family Member Limitations to Obtaining History: Dementia - Past Medical History [employer]: Yes: Migraine Gastrointestinal: Yes: Irritable Bowel Disease - Smoking History Smoking history: Former smoker Have you smoked in the past 12 months: Yes Aproximately how many cigarettes per day: 7 - Alcohol/Substance Use Hx Alcohol Use: No Home Medications - Allergies Allergies/Adverse Reactions: Allergies Allergy/AdvReac Type Severity Reaction Status Date / Time ciprofloxacin Allergy Verified 01/09/17 07:59 levofloxacin [From Levaquin] Allergy Verified 01/09/17 07:59 - Home Medications Home Medications: Ambulatory Orders Aspirin/Acetaminophen/Caffeine [Excedrin Migraine Caplet] 1 each PO PRN PRN Diphenhydramine [Benadryl Capsule -] 50 mg PO QID PRN #20 capsule 09/13/15 Metoclopramide HCl [Reglan] 10 mg PO TID PRN #20 tablet MDD 3 04/05/16 Ibuprofen 800 mg PO TID PRN MDD 3 01/08/17 Methadone [Dolophine -] 48 mg PO DAILY 01/08/17 Sumatriptan Succinate [Imitrex] 50 mg PO ONCE PRN #5 tablet 01/08/17 Review of Systems - Review of Systems Constitutional: denies: Chills, Fever Eyes: reports: Blurred Vision, Photophobia, Recent Change in Vision. denies: Double Vision HENT: denies: Difficult Swallowing, Ear Discharge, Nasal Congestion, Throat Pain Neck: denies: Pain on Movement, Stiffness Cardiovascular: denies: Chest Pain, Edema, Palpitations Respiratory: denies: Cough, SOB on Exertion, Wheezing Gastrointestinal: reports: Nausea. denies: Abdominal Pain, Diarrhea Genitourinary: denies: Burning, Discharge, Dysuria Musculoskeletal: denies: Back Pain, Joint Swelling, Muscle Pain Integumentary: denies: Bruising, Eczema, Rash Neurological: denies: Change in LOC, Change in Speech, Confusion, Dizziness, Syncope Endocrine: denies: Excessive Sweating, Intolerance to Cold Hematology/Lymphatic: denies: Easily Bruised, Excessive Bleeding Psychiatric: denies: Anxiety, Depression Physical Examination Vital Signs: Vital Signs Temperature 99.4 F 01/09/17 18:00 Pulse Rate 67 01/09/17 18:00 Respiratory Rate 20 01/09/17 18:00 Blood Pressure 138/79 01/09/17 18:00 O2 Sat by Pulse Oximetry (%) 100 01/09/17 15:17 Constitutional: Yes: No Distress, Calm Eyes: Yes: Conjunctiva Clear, Other (difficult examination secondary to photophobia) HENT: Yes: Normocephalic. No: Epistaxis, Pharyngeal Erythema, Rhinnorhea, Thrush Neck: Yes: Trachea Midline. No: Lymphadenopathy Cardiovascular: Yes: Regular Rate and Rhythm, S1, S2 Respiratory: Yes: Regular, CTA Bilaterally. No: Rales Gastrointestinal: Yes: Normal Bowel Sounds, Soft. No: Tenderness ...Rectal Exam: Yes: Deferred Renal/: No: CVA Tenderness - Left, CVA Tenderness - Right Extremities: No: Cold, Cool Edema: No Neurological: Yes: Alert, Oriented, Other (motor and sensory examination is symmetric in UE/ LE/ face) Psychiatric: Yes: Alert, Oriented Labs: CBC, BMP 01/09/17 09:30 01/09/17 09:30 Imaging - Results Cat Scan: Report Reviewed Problem List - Problems (1) Intractable complicated migraine with status migrainosus Code(s): G43.911 - MIGRAINE, UNSPECIFIED, INTRACTABLE, WITH STATUS MIGRAINOSUS (2) Leukocytosis Assessment/Plan: probable from steroids; to moniotr fever curve, repeate CBC in AM Code(s): D72.829 - ELEVATED WHITE BLOOD CELL COUNT, UNSPECIFIED Assessment/Plan IV Toradol IV Zofran IV fluids IV Zofran Neurology consult. If not better to send pt for repeated Head CT scan. AM labs
[2017-01-10] MEDS: KETOROLAC TROMETHAMINE 30 MG/1 ML VIAL IM PRN ×2 (05:39→21:51)
[2017-01-10 07:44] LABS: MCH 30.3 pg (25.7-33.7); MCHC 33.1 g/dl (32.0-35.9); MEAN CELL VOLUME 91.3 fl (80-96); MEAN PLT VOLUME 9.4 fl (7.5-11.1); PLATELET COUNT 171 K/MM3 (134-434); RDW 13.3 % (11.9-15.9); WHITE BLOOD COUNT 9.3 K/mm3 (4.0-10.0)
[2017-01-10 08:31] LABS: ALBUMIN 3.7 g/dl (3.4-5.0); ALK PHOS 84 U/L (45-117); ANION GAP 13 (8-16); BILIRUBIN,TOTAL 0.6 mg/dL (0.2-1.0); CALCIUM 8.5 mg/dL (8.5-10.1); CO2 19 mmol/L (21-32); GLUCOSE,RANDOM 80 mg/dL (74-106); SGOT/AST 15 U/L (15-37); SGPT/ALT 21 U/L (12-78); TOT PROT 6.6 g/dl (6.4-8.2)
[2017-01-10] MEDS ORDERED: METHADONE HCL 10 MG TABLET PO SCH (09:15)
[2017-01-10] MEDS ORDERED: METHADONE HCL 5 MG TABLET PO SCH (09:15)
--- NOTE | 2017-01-10 09:21 | PN ---
Progress Note, Physician History of Present Illness: Pt with minimum improved LISA, still with numbness in his right fingers; pt with photophobia.. Pt w/o SOB, CP, palp, abd pain. 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 - Current Medication List Current Medications: Active Medications Acetaminophen (Tylenol -) 650 mg PO Q6H PRN PRN Reason: FEVER OR PAIN Last Admin: 01/09/17 16:50 Dose: 650 mg Dexamethasone Sodium Phosphate (Decadron Injection -) 10 mg IVPUSH ONCE PRN PRN Reason: HEADACHE Sodium Chloride (Normal Saline -) 1,000 mls @ 50 mls/hr IV ASDIR CARLOS Stop: 01/10/17 11:54 Last Admin: 01/09/17 13:24 Dose: 50 mls/hr Ketorolac Tromethamine (Toradol Injection -) 30 mg IM Q6H PRN PRN Reason: PAIN Stop: 01/14/17 11:53 Last Admin: 01/10/17 05:39 Dose: 30 mg Methadone HCl (Dolophine -) 5 mg PO DAILY@0600 [facility] Methadone HCl (Dolophine -) 40 mg PO DAILY@0600 [facility] Metoclopramide HCl (Reglan Injection -) 10 mg IVPUSH ONCE PRN PRN Reason: HEADACHE Ondansetron HCl (Zofran Injection) 4 mg IVPB Q8H PRN PRN Reason: NAUSEA AND/OR VOMITING Last Admin: 01/09/17 17:49 Dose: 4 mg Pantoprazole Sodium (Protonix Iv) 40 mg IVPUSH DAILY [facility] Last Admin: 01/09/17 13:24 Dose: 40 mg - Objective Vital Signs: Vital Signs Temperature 98.9 F 01/10/17 06:00 Pulse Rate 66 01/10/17 06:00 Respiratory Rate 20 01/10/17 06:00 Blood Pressure 103/64 01/10/17 06:00 O2 Sat by Pulse Oximetry (%) 100 01/09/17 21:00 Constitutional: Yes: Anxious Cardiovascular: Yes: Regular Rate and Rhythm, S1, S2 Respiratory: Yes: Regular, CTA Bilaterally. No: Rales Gastrointestinal: Yes: Normal Bowel Sounds, Soft. No: Tenderness Edema: No Neurological: Yes: Alert, Oriented Labs: CBC, BMP 01/10/17 07:20 01/10/17 07:20 Problem List - Problems (1) Intractable complicated migraine with status migrainosus Code(s): G43.911 - MIGRAINE, UNSPECIFIED, INTRACTABLE, WITH STATUS MIGRAINOSUS (2) Leukocytosis Assessment/Plan: w/i today Code(s): D72.829 - ELEVATED WHITE BLOOD CELL COUNT, UNSPECIFIED (3) Heroin use disorder, mild, on maintenance therapy Assessment/Plan: confirmed with [facility] clinic Code(s): F11.10 - OPIOID ABUSE, UNCOMPLICATED Assessment/Plan IV Toradol IV Zofran IV fluids IV Zofran Neurology consult appreciated, case was d/w Dr. Schmidt. AM labs
--- NOTE | 2017-01-10 10:06 | PN ---
Progress Note (short form) - Note Progress Note: Neurology History of Present Illness 41 yo M with h/o migraines who returned to ED for ongoing migraine. He reports right sided pulsating head pain, radiating down right side of the neck to right arm with subsequent numbness/tingling beginning yesterday evening. He reports the symptoms were with gradual onset and worsening intensity. Endorses non biliary non bloody emesis, photophobia, and visual halos since yesterday evening. Denies fevers/chills, neck stiffness, weakness, chest pain, SOB, urinary complaints, GI/abdominal complaints. Recently seen in ED ( 01/09) for migraine and symptom control. Was treated with Toradol, Compazine, Reglan, Benadryl, Zofran, Dexamethasone, Magnesium sulfate with improvement in symptoms and sent home on Sumitripatan and told to f/u with me on Friday. Negative head CT ( 01/08). Since d/c has attempted Reglan Benadryl Ibrupfrofen, and Sumitrptan 50 mg PO x 1 with no improvement in symptoms. Yesterday, he also endorsed symptoms of cervicalgia and cervical radiculopathaolopy and we discussed further imaging for this. Ordered MRI of the cervical spine. Spoke to PCP today and it seems patient was on methadone for heroin and had not received medication and this may be why he had recurrence of symptoms. Active Medications Acetaminophen (Tylenol -) 650 mg PO Q6H PRN PRN Reason: FEVER OR PAIN Last Admin: 01/09/17 16:50 Dose: 650 mg Dexamethasone Sodium Phosphate (Decadron Injection -) 10 mg IVPUSH ONCE PRN PRN Reason: HEADACHE Sodium Chloride (Normal Saline -) 1,000 mls @ 50 mls/hr IV ASDIR CARLOS Stop: 01/10/17 11:54 Last Admin: 01/09/17 13:24 Dose: 50 mls/hr Ketorolac Tromethamine (Toradol Injection -) 30 mg IM Q6H PRN PRN Reason: PAIN Stop: 01/14/17 11:53 Last Admin: 01/10/17 05:39 Dose: 30 mg Methadone HCl (Dolophine -) 5 mg PO DAILY@0600 [facility] Methadone HCl (Dolophine -) 40 mg PO DAILY@0600 [facility] Metoclopramide HCl (Reglan Injection -) 10 mg IVPUSH ONCE PRN PRN Reason: HEADACHE Ondansetron HCl (Zofran Injection) 4 mg IVPB Q8H PRN PRN Reason: NAUSEA AND/OR VOMITING Last Admin: 01/09/17 17:49 Dose: 4 mg Pantoprazole Sodium (Protonix Iv) 40 mg IVPUSH DAILY [facility] Last Admin: 01/09/17 13:24 Dose: 40 mg *Physical Exam Vital Signs Period Temp Pulse Resp BP Sys/Malagon Pulse Ox Last 24 Hr 98.3 F-99.4 F 62-85 18-20 103-138/64-79 99-100 GENERAL: Awake, alert, and fully oriented, in distress. HEAD: No signs of trauma, normocephalic, atraumatic EYES: PERRLA, EOMI, sclera anicteric, conjunctiva clear ENT: hearing grossly normal, nares patent, oropharynx clear without exudates. Moist mucosa NECK: Normal ROM, supple, no JVD, or masses LUNGS: No distress, speaks full sentences, clear to auscultation bilaterally HEART: Regular rate and rhythm, normal S1 and S2, no murmurs, rubs or gallops, peripheral pulses normal and equal bilaterally. EXTREMITIES : Normal inspection, Normal range of motion, no edema. No clubbing or cyanosis. NEUROLOGICAL: Cranial nerves II through XII grossly intact. Normal speech, no focal sensorimotor deficits SKIN: Warm, Dry, normal turgor, no rashes or lesions noted. CBCD WBC 9.3 K/mm3 (4.0-10.0) D 01/10/17 07:20 RBC 4.57 M/mm3 (4.00-5.60) 01/10/17 07:20 Hgb 13.8 GM/dL (11.7-16.9) D 01/10/17 07:20 Hct 41.8 % (35.4-49) 01/10/17 07:20 MCV 91.3 fl (80-96) 01/10/17 07:20 MCHC 33.1 g/dl (32.0-35.9) 01/10/17 07:20 RDW 13.3 % (11.9-15.9) 01/10/17 07:20 Plt Count 171 K/MM3 (134-434) D 01/10/17 07:20 MPV 9.4 fl (7.5-11.1) 01/10/17 07:20 CMP Sodium 139 mmol/L (136-145) 01/10/17 07:20 Potassium 3.7 mmol/L (3.5-5.1) 01/10/17 07:20 Chloride 107 mmol/L (98-107) 01/10/17 07:20 Carbon Dioxide 19 mmol/L (21-32) L 01/10/17 07:20 Anion Gap 13 (8-16) 01/10/17 07:20 BUN 12 mg/dL (7-18) 01/10/17 07:20 Creatinine 1.0 mg/dL (0.7-1.3) 01/10/17 07:20 Creat Clearance w eGFR > 60 (>60) 01/10/17 07:20 Calcium 8.5 mg/dL (8.5-10.1) 01/10/17 07:20 Total Bilirubin 0.6 mg/dL (0.2-1.0) 01/10/17 07:20 AST 15 U/L (15-37) D 01/10/17 07:20 ALT 21 U/L (12-78) 01/10/17 07:20 Alkaline Phosphatase 84 U/L (45-117) 01/10/17 07:20 Total Protein 6.6 g/dl (6.4-8.2) 01/10/17 07:20 Albumin 3.7 g/dl (3.4-5.0) 01/10/17 07:20 Medical Decision Making 41 yo M with h/o migraines who returned to ED for ongoing migraine. He reports right sided pulsating head pain, radiating down right side of the neck to right arm with subsequent numbness/tingling beginning yesterday evening. He reports the symptoms were with gradual onset and worsening intensity. Endorses non biliary non bloody emesis, photophobia, and visual halos since yesterday evening. Denies fevers/chills, neck stiffness, weakness, chest pain, SOB, urinary complaints, GI/abdominal complaints. Recently seen in ED ( 01/09) for migraine and symptom control. Was treated with Toradol, Compazine, Reglan, Benadryl, Zofran, Dexamethasone, Magnesium sulfate with improvement in symptoms and sent home on Sumitripatan and told to f/u with me on Friday. Negative head CT ( 01/08). Since d/c has attempted Reglan Benadryl Ibrupfrofen, and Sumitrptan 50 mg PO x 1 with no improvement in symptoms. during my encounter, he also endorsed symptoms of cervicalgia and cervical radiculopathaolopy and we discussed further imaging for this. MRI of the cervical spine pending, though this may be his continued status migranosis. Can use similar regiment of Decadron IV 10mg, Depakene 1gm (have not ordered), awaiting methadone which may improve symptoms Caution with opioids and narcotics Relaxation recommended Continue adequate hydration and by mouth intake Avoid any migraine triggers
[2017-01-10] MEDS ORDERED: METHADONE HCL 5 MG TABLET ONE (10:32)
[2017-01-10] MEDS ORDERED: METHADONE HCL 40 MG DISPERSABLE TABLET ONE (10:32)
[2017-01-10] MEDS: METHADONE 40 MG, METHADONE 5 MG PO SCH (10:39)
[2017-01-10] MEDS: PANTOPRAZOLE SODIUM 40 MG VIAL IVPUSH SCH (10:48)
[2017-01-10] MEDS ORDERED: PT OWN MED DRAWER 7, Y5N ONE (13:01)
[2017-01-10] MEDS: DEXAMETHASONE SOD PHOSPHATE 10 MG/1 ML VIAL IVPUSH PRN (13:10)
[2017-01-10] MEDS: ACETAMINOPHEN 325 MG TABLET (FP) PO PRN (18:46)
[2017-01-10] MEDS: ONDANSETRON 4 MG/2 ML VIAL IVPB PRN (18:47)
[2017-01-11] MEDS ORDERED: METHADONE HCL 40 MG DISPERSABLE TABLET ONE (05:49)
[2017-01-11] MEDS ORDERED: METHADONE HCL 5 MG TABLET ONE (05:49)
[2017-01-11] MEDS: METHADONE 40 MG, METHADONE 5 MG PO SCH (05:57)
[2017-01-11 06:57] LABS: MCH 30.2 pg (25.7-33.7); MCHC 33.6 g/dl (32.0-35.9); MEAN CELL VOLUME 89.9 fl (80-96); PLATELET COUNT 211 K/MM3 (134-434); RDW 13.2 % (11.9-15.9); WHITE BLOOD COUNT 17.1 K/mm3 (4.0-10.0)
[2017-01-11 07:42] LABS: ANION GAP 11 (8-16); CALCIUM 9.3 mg/dL (8.5-10.1); CO2 21 mmol/L (21-32); CREATININE 1.1 mg/dL (0.7-1.3); GLUCOSE,RANDOM 97 mg/dL (74-106)
[2017-01-11] MEDS: KETOROLAC TROMETHAMINE 30 MG/1 ML VIAL IM PRN ×2 (07:44→18:38)
[2017-01-11] MEDS: ONDANSETRON 4 MG/2 ML VIAL IVPB PRN (07:44)
[2017-01-11] MEDS: PANTOPRAZOLE SODIUM 40 MG VIAL IVPUSH SCH (10:45)
[2017-01-11] MEDS: ACETAMINOPHEN 325 MG TABLET (FP) PO PRN (10:45)
--- NOTE | 2017-01-11 11:24 | PN ---
Progress Note (short form) - Note Progress Note: Neurology History of Present Illness 41 yo M with h/o migraines who returned to ED for ongoing migraine. He reports right sided pulsating head pain, radiating down right side of the neck to right arm with subsequent numbness/tingling beginning yesterday evening. He reports the symptoms were with gradual onset and worsening intensity. Endorses non biliary non bloody emesis, photophobia, and visual halos since yesterday evening. Denies fevers/chills, neck stiffness, weakness, chest pain, SOB, urinary complaints, GI/abdominal complaints. Recently seen in ED ( 01/09) for migraine and symptom control. Was treated with Toradol, Compazine, Reglan, Benadryl, Zofran, Dexamethasone, Magnesium sulfate with improvement in symptoms and sent home on Sumitripatan and told to f/u with me on Friday. Negative head CT ( 01/08). Since d/c has attempted Reglan Benadryl Ibrupfrofen, and Sumitrptan 50 mg PO x 1 with no improvement in symptoms. Patient was on methadone for heroin and had not received medication and this may be why he had recurrence of symptoms. Is now much improved and stabilized. He had endorsed symptoms of cervicalgia and cervical radiculopathaolopy and we completed MRI of the cervical spine. I reviewed images and appears to be disc bulging but no spinal cord signal changes, awaiting official report. Cervicalgia also appears improved. Home Medication List Medication Instructions Recorded Confirmed Type Aspirin/Acetaminophen/Caffeine 1 each PO PRN PRN 09/13/15 01/09/17 History [Excedrin Migraine Caplet] Ibuprofen 800 mg PO TID PRN MDD 3 01/08/17 01/09/17 History Methadone [Dolophine -] 48 mg PO DAILY 01/08/17 01/09/17 History Active Medications Generic Name Dose Route Start Last Admin Trade Name Freq PRN Reason Stop Dose Admin Acetaminophen 650 mg 01/09/17 12:00 01/11/17 10:45 Tylenol - PO 650 mg Q6H PRN Administration FEVER OR PAIN Dexamethasone Sodium Phosphate 10 mg 01/09/17 12:50 01/10/17 13:10 Decadron Injection - IVPUSH 10 mg ONCE PRN Administration HEADACHE Ketorolac Tromethamine 30 mg 01/09/17 11:54 01/11/17 07:44 Toradol Injection - IM 01/14/17 11:53 30 mg Q6H PRN Administration PAIN Methadone HCl 40 mg/ Methadone 45 mg 01/10/17 10:45 01/11/17 05:57 HCl 5 mg PO 45 mg DAILY@0600 CARLOS Administration Metoclopramide HCl 10 mg 01/09/17 12:51 01/10/17 13:10 Reglan Injection - IVPUSH 10 mg ONCE PRN Administration HEADACHE Ondansetron HCl 4 mg 01/09/17 11:57 01/11/17 07:44 Zofran Injection IVPB 4 mg Q8H PRN Administration NAUSEA AND/OR VOMITING Pantoprazole Sodium 40 mg 01/09/17 12:00 01/11/17 10:45 Protonix Iv IVPUSH 40 mg DAILY CARLOS Administration *Physical Exam Vital Signs Temperature 98.2 F 01/11/17 06:00 Pulse Rate 72 01/11/17 06:00 Respiratory Rate 20 01/11/17 06:00 Blood Pressure 113/61 01/11/17 06:00 O2 Sat by Pulse Oximetry (%) 100 01/10/17 21:00 GENERAL: Awake, alert, and fully oriented, in distress. HEAD: No signs of trauma, normocephalic, atraumatic EYES: PERRLA, EOMI, sclera anicteric, conjunctiva clear ENT: hearing grossly normal, nares patent, oropharynx clear without exudates. Moist mucosa NECK: Normal ROM, supple, no JVD, or masses LUNGS: No distress, speaks full sentences, clear to auscultation bilaterally HEART: Regular rate and rhythm, normal S1 and S2, no murmurs, rubs or gallops, peripheral pulses normal and equal bilaterally. EXTREMITIES : Normal inspection, Normal range of motion, no edema. No clubbing or cyanosis. NEUROLOGICAL: Cranial nerves II through XII grossly intact. Normal speech, no focal sensorimotor deficits SKIN: Warm, Dry, normal turgor, no rashes or lesions noted. CBCD WBC 17.1 K/mm3 (4.0-10.0) H D 01/11/17 06:00 RBC 4.95 M/mm3 (4.00-5.60) 01/11/17 06:00 Hgb 14.9 GM/dL (11.7-16.9) 01/11/17 06:00 Hct 44.5 % (35.4-49) 01/11/17 06:00 MCV 89.9 fl (80-96) 01/11/17 06:00 MCHC 33.6 g/dl (32.0-35.9) 01/11/17 06:00 RDW 13.2 % (11.9-15.9) 01/11/17 06:00 Plt Count 211 K/MM3 (134-434) D 01/11/17 06:00 MPV 9.0 fl (7.5-11.1) 01/11/17 06:00 CMP Sodium 137 mmol/L (136-145) 01/11/17 06:00 Potassium 3.8 mmol/L (3.5-5.1) 01/11/17 06:00 Chloride 105 mmol/L (98-107) 01/11/17 06:00 Carbon Dioxide 21 mmol/L (21-32) 01/11/17 06:00 Anion Gap 11 (8-16) 01/11/17 06:00 BUN 14 mg/dL (7-18) 01/11/17 06:00 Creatinine 1.1 mg/dL (0.7-1.3) 01/11/17 06:00 Creat Clearance w eGFR > 60 (>60) 01/10/17 07:20 Calcium 9.3 mg/dL (8.5-10.1) 01/11/17 06:00 Total Bilirubin 0.6 mg/dL (0.2-1.0) 01/10/17 07:20 AST 15 U/L (15-37) D 01/10/17 07:20 ALT 21 U/L (12-78) 01/10/17 07:20 Alkaline Phosphatase 84 U/L (45-117) 01/10/17 07:20 Total Protein 6.6 g/dl (6.4-8.2) 01/10/17 07:20 Albumin 3.7 g/dl (3.4-5.0) 01/10/17 07:20 MRI C spine reviewed Medical Decision Making 41 yo M with h/o migraines who returned to ED for ongoing migraine. He reports right sided pulsating head pain, radiating down right side of the neck to right arm with subsequent numbness/tingling beginning yesterday evening. He reports the symptoms were with gradual onset and worsening intensity. Endorses non biliary non bloody emesis, photophobia, and visual halos since yesterday evening. Denies fevers/chills, neck stiffness, weakness, chest pain, SOB, urinary complaints, GI/abdominal complaints. Recently seen in ED ( 01/09) for migraine and symptom control. Was treated with Toradol, Compazine, Reglan, Benadryl, Zofran, Dexamethasone, Magnesium sulfate with improvement in symptoms and sent home on Sumitripatan and told to f/u with me on Friday. Negative head CT ( 01/08). Since d/c has attempted Reglan Benadryl Ibrupfrofen, and Sumitrptan 50 mg PO x 1 with no improvement in symptoms. MRI of the cervical spine reviewed, appears stable with disc bulging but no significant spinal cord signal changes Status migranosis improved Has imitrex at home and can take this as needed Would like to see me in office Relaxation recommended Continue Methadone maintenance as missed doses can precipitate his migraines Continue adequate hydration and by mouth intake Avoid any migraine triggers Can pursue physical therapy for cervicalgia Lidocaine ointment also suggested Neurologically stable at this time, likely for discharge if MRI C spine report without significant findings
--- NOTE | 2017-01-11 13:42 | PN ---
Progress Note, Physician History of Present Illness: Pt is felling better today, still with LISA; pt received last night and this AM Ketorolac IV. Pt w/o SOB, CP, palp, abd pain. 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 - Current Medication List Current Medications: Active Medications Acetaminophen (Tylenol -) 650 mg PO Q6H PRN PRN Reason: FEVER OR PAIN Last Admin: 01/11/17 10:45 Dose: 650 mg Dexamethasone Sodium Phosphate (Decadron Injection -) 10 mg IVPUSH ONCE PRN PRN Reason: HEADACHE Last Admin: 01/10/17 13:10 Dose: 10 mg Ketorolac Tromethamine (Toradol Injection -) 30 mg IM Q6H PRN PRN Reason: PAIN Stop: 01/14/17 11:53 Last Admin: 01/11/17 07:44 Dose: 30 mg Methadone HCl 40 mg/ Methadone (HCl 5 mg) 45 mg PO DAILY@0600 [facility] Last Admin: 01/11/17 05:57 Dose: 45 mg Metoclopramide HCl (Reglan Injection -) 10 mg IVPUSH ONCE PRN PRN Reason: HEADACHE Last Admin: 01/10/17 13:10 Dose: 10 mg Ondansetron HCl (Zofran Injection) 4 mg IVPB Q8H PRN PRN Reason: NAUSEA AND/OR VOMITING Last Admin: 01/11/17 07:44 Dose: 4 mg Pantoprazole Sodium (Protonix Iv) 40 mg IVPUSH DAILY [facility] Last Admin: 01/11/17 10:45 Dose: 40 mg - Objective Vital Signs: Vital Signs Temperature 98.4 F 01/11/17 10:00 Pulse Rate 73 01/11/17 10:00 Respiratory Rate 18 01/11/17 10:00 Blood Pressure 118/61 01/11/17 10:00 O2 Sat by Pulse Oximetry (%) 100 01/11/17 09:00 Constitutional: Yes: No Distress, Calm Cardiovascular: Yes: Regular Rate and Rhythm, S1, S2 Respiratory: Yes: Regular, CTA Bilaterally. No: Rales Gastrointestinal: Yes: Normal Bowel Sounds, Soft. No: Tenderness Edema: No Neurological: Yes: Alert, Oriented Labs: CBC, BMP 01/11/17 06:00 01/11/17 06:00 Problem List - Problems (1) Intractable complicated migraine with status migrainosus Code(s): G43.911 - MIGRAINE, UNSPECIFIED, INTRACTABLE, WITH STATUS MIGRAINOSUS (2) Leukocytosis Code(s): D72.829 - ELEVATED WHITE BLOOD CELL COUNT, UNSPECIFIED (3) Heroin use disorder, mild, on maintenance therapy Code(s): F11.10 - OPIOID ABUSE, UNCOMPLICATED Assessment/Plan IV Toradol IV Zofran Off IV fluids IV Zofran Trial of Motrin Q8 hours. Neurology consult appreciated. To f/u MRI report Case was d/w pt's nurse AM labs
[2017-01-11] MEDS: IBUPROFEN 600 MG TABLET (FP) PO SCH ×2 (17:10→22:28)
[2017-01-11] MEDS: DEXAMETHASONE SOD PHOSPHATE 10 MG/1 ML VIAL IVPUSH PRN (17:38)
[2017-01-12] MEDS: KETOROLAC TROMETHAMINE 30 MG/1 ML VIAL IM PRN ×2 (00:57→07:59)
[2017-01-12] MEDS: ACETAMINOPHEN 325 MG TABLET (FP) PO PRN ×2 (00:59→08:00)
[2017-01-12] MEDS ORDERED: METHADONE HCL 5 MG TABLET ONE (05:11)
[2017-01-12] MEDS ORDERED: METHADONE HCL 40 MG DISPERSABLE TABLET ONE (05:11)
[2017-01-12] MEDS: ONDANSETRON 4 MG/2 ML VIAL IVPB PRN ×2 (05:45→20:21)
[2017-01-12] MEDS: METHADONE 40 MG, METHADONE 5 MG PO SCH (06:24)
[2017-01-12] MEDS: IBUPROFEN 600 MG TABLET (FP) PO SCH (06:25)
[2017-01-12 08:42] LABS: MCH 30.4 pg (25.7-33.7); MEAN CELL VOLUME 89.4 fl (80-96); MEAN PLT VOLUME 8.5 fl (7.5-11.1); PLATELET COUNT 207 K/MM3 (134-434); RDW 13.3 % (11.9-15.9)
[2017-01-12 09:08] LABS: ANION GAP 11 (8-16); CALCIUM 8.8 mg/dL (8.5-10.1); CO2 19 mmol/L (21-32); CREATININE 1.1 mg/dL (0.7-1.3); GLUCOSE,RANDOM 88 mg/dL (74-106)
[2017-01-12] MEDS: PANTOPRAZOLE SODIUM 40 MG VIAL IVPUSH SCH (09:08)
--- NOTE | 2017-01-12 12:27 | PN ---
Progress Note, Physician History of Present Illness: Pt again with LISA; pt receiving Ketorolac IM 3-4 times per day. Pt w/o SOB, CP, palp, abd pain. Pt c/o constipation, asking for Miralax. 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 Per AM nurse (Taylor) pt with severe LISA this AM, he was crying. - Current Medication List Current Medications: Active Medications Acetaminophen (Tylenol -) 650 mg PO Q6H PRN PRN Reason: FEVER OR PAIN Last Admin: 01/12/17 08:00 Dose: 650 mg Dexamethasone Sodium Phosphate (Decadron Injection -) 10 mg IVPUSH ONCE PRN PRN Reason: HEADACHE Last Admin: 01/11/17 17:38 Dose: 10 mg Ibuprofen (Motrin -) 600 mg PO Q8H [facility] Stop: 01/13/17 14:29 Last Admin: 01/12/17 06:25 Dose: 600 mg Ketorolac Tromethamine (Toradol Injection -) 30 mg IM Q6H PRN PRN Reason: PAIN Stop: 01/14/17 11:53 Last Admin: 01/12/17 07:59 Dose: 30 mg Methadone HCl 40 mg/ Methadone (HCl 5 mg) 45 mg PO DAILY@0600 [facility] Last Admin: 01/12/17 06:24 Dose: 45 mg Metoclopramide HCl (Reglan Injection -) 10 mg IVPUSH ONCE PRN PRN Reason: HEADACHE Last Admin: 01/10/17 13:10 Dose: 10 mg Ondansetron HCl (Zofran Injection) 4 mg IVPB Q8H PRN PRN Reason: NAUSEA AND/OR VOMITING Last Admin: 01/12/17 05:45 Dose: 4 mg Pantoprazole Sodium (Protonix Iv) 40 mg IVPUSH DAILY [facility] Last Admin: 01/12/17 09:08 Dose: 40 mg - Objective Vital Signs: Vital Signs Temperature 98.8 F 01/12/17 06:15 Pulse Rate 81 01/12/17 06:15 Respiratory Rate 20 01/12/17 06:15 Blood Pressure 134/85 01/12/17 06:15 O2 Sat by Pulse Oximetry (%) 100 01/11/17 09:00 Constitutional: Yes: No Distress Cardiovascular: Yes: Regular Rate and Rhythm, S1, S2 Respiratory: Yes: Regular, CTA Bilaterally. No: Rales Gastrointestinal: Yes: Normal Bowel Sounds, Soft. No: Tenderness Edema: No Neurological: Yes: Alert, Oriented Labs: CBC, BMP 01/12/17 08:15 01/12/17 08:15 Problem List - Problems (1) Intractable complicated migraine with status migrainosus Code(s): G43.911 - MIGRAINE, UNSPECIFIED, INTRACTABLE, WITH STATUS MIGRAINOSUS (2) Leukocytosis Code(s): D72.829 - ELEVATED WHITE BLOOD CELL COUNT, UNSPECIFIED (3) Heroin use disorder, mild, on maintenance therapy Code(s): F11.10 - OPIOID ABUSE, UNCOMPLICATED (4) Constipation Code(s): K59.00 - CONSTIPATION, UNSPECIFIED (5) IBS (irritable bowel syndrome) Code(s): K58.9 - IRRITABLE BOWEL SYNDROME WITHOUT DIARRHEA (6) Bulging of intervertebral disc Assessment/Plan: of cervical spine, multilevel. Probable secondary to fall, at home. Code(s): ZFR7025 - Assessment/Plan IV Toradol IV Zofran Off IV fluids IV Zofran Trial of Motrin Q8 hours. Neurology consult appreciated. Case was d/w Dr. Schmidt; trial of Topamax; consider Tramadol. To DC Motrin. Case was d/w pt's nurse AM labs
[2017-01-12] MEDS ORDERED: KETOROLAC TROMETHAMINE 30 MG/1 ML VIAL IM PRN (12:49)
[2017-01-12] MEDS ORDERED: POLYETHYLENE GLYCOL 3350 119 GM BTL PO ONE (12:49)
[2017-01-12] MEDS ORDERED: traMADol HCL 50 MG TABLET PO PRN (12:57)
[2017-01-12] MEDS: TOPIRAMATE 25 MG TABLET (FP) PO SCH ×2 (14:36→21:17)
[2017-01-13] MEDS ORDERED: METHADONE HCL 5 MG TABLET ONE (05:32)
[2017-01-13] MEDS ORDERED: METHADONE HCL 40 MG DISPERSABLE TABLET ONE (05:32)
[2017-01-13] MEDS: METHADONE 40 MG, METHADONE 5 MG PO SCH (05:51)
[2017-01-13] MEDS: ONDANSETRON 4 MG/2 ML VIAL IVPB PRN (08:25)
[2017-01-13] MEDS: TOPIRAMATE 25 MG TABLET (FP) PO SCH ×2 (09:11→21:48)
[2017-01-13] MEDS: PANTOPRAZOLE SODIUM 40 MG VIAL IVPUSH SCH (09:11)
--- NOTE | 2017-01-13 09:46 | PN ---
Progress Note (short form) - Note Progress Note: Neurology History of Present Illness 41 yo M with h/o migraines who returned to ED for ongoing migraine. He reports right sided pulsating head pain, radiating down right side of the neck to right arm with subsequent numbness/tingling beginning yesterday evening. He reports the symptoms were with gradual onset and worsening intensity. Endorses non biliary non bloody emesis, photophobia, and visual halos since yesterday evening. Denies fevers/chills, neck stiffness, weakness, chest pain, SOB, urinary complaints, GI/abdominal complaints. Recently seen in ED ( 01/09) for migraine and symptom control. Was treated with Toradol, Compazine, Reglan, Benadryl, Zofran, Dexamethasone, Magnesium sulfate with improvement in symptoms and sent home on Sumitripatan and told to f/u with me on Friday. Negative head CT ( 01/08). Since d/c had attempted Reglan Benadryl Ibrupfrofen, and Sumitrptan 50 mg PO x 1 with no improvement in symptoms. Patient was on methadone for heroin and had not received medication and this may be why he had recurrence of symptoms. Is now much improved and stabilized. He had endorsed symptoms of cervicalgia and cervical radiculopathaolopy and we completed MRI of the cervical spine. I reviewed images and official report, mild bulging noted but significant spinal cord changes. Patient still with neck pain and had towel wrapped around his head this morning. Is on Topamax 50mg twice daily along with as needed Ultram for headaches. Active Medications Acetaminophen (Tylenol -) 650 mg PO Q6H PRN PRN Reason: FEVER OR PAIN Last Admin: 01/12/17 08:00 Dose: 650 mg Dexamethasone Sodium Phosphate (Decadron Injection -) 10 mg IVPUSH ONCE PRN PRN Reason: HEADACHE Last Admin: 01/11/17 17:38 Dose: 10 mg Methadone HCl 40 mg/ Methadone (HCl 5 mg) 45 mg PO DAILY@0600 [facility] Last Admin: 01/13/17 05:51 Dose: 45 mg Metoclopramide HCl (Reglan Injection -) 10 mg IVPUSH ONCE PRN PRN Reason: HEADACHE Last Admin: 01/10/17 13:10 Dose: 10 mg Ondansetron HCl (Zofran Injection) 4 mg IVPB Q8H PRN PRN Reason: NAUSEA AND/OR VOMITING Last Admin: 01/13/17 08:25 Dose: 4 mg Pantoprazole Sodium (Protonix Iv) 40 mg IVPUSH DAILY [facility] Last Admin: 01/13/17 09:11 Dose: 40 mg Topiramate (Topamax -) 50 mg PO BID [facility] Last Admin: 01/13/17 09:11 Dose: 50 mg Tramadol HCl (Ultram -) 50 mg PO Q8H PRN PRN Reason: PAIN Last Admin: 01/13/17 08:07 Dose: 50 mg *Physical Exam Vital Signs Period Temp Pulse Resp BP Sys/Malagon Pulse Ox Last 24 Hr 98.3 F-98.9 F 60-81 18-20 104-143/63-86 99 GENERAL: Awake, alert, and fully oriented, in distress. HEAD: No signs of trauma, normocephalic, atraumatic EYES: PERRLA, EOMI, sclera anicteric, conjunctiva clear ENT: hearing grossly normal, nares patent, oropharynx clear without exudates. Moist mucosa NECK: Normal ROM, supple, no JVD, or masses LUNGS: No distress, speaks full sentences, clear to auscultation bilaterally HEART: Regular rate and rhythm, normal S1 and S2, no murmurs, rubs or gallops, peripheral pulses normal and equal bilaterally. EXTREMITIES : Normal inspection, Normal range of motion, no edema. No clubbing or cyanosis. NEUROLOGICAL: Cranial nerves II through XII grossly intact. Normal speech, no focal sensorimotor deficits SKIN: Warm, Dry, normal turgor, no rashes or lesions noted. CBCD WBC 15.0 K/mm3 (4.0-10.0) H 01/12/17 08:15 RBC 4.75 M/mm3 (4.00-5.60) 01/12/17 08:15 Hgb 14.4 GM/dL (11.7-16.9) 01/12/17 08:15 Hct 42.4 % (35.4-49) 01/12/17 08:15 MCV 89.4 fl (80-96) 01/12/17 08:15 MCHC 34.0 g/dl (32.0-35.9) 01/12/17 08:15 RDW 13.3 % (11.9-15.9) 01/12/17 08:15 Plt Count 207 K/MM3 (134-434) 01/12/17 08:15 MPV 8.5 fl (7.5-11.1) 01/12/17 08:15 CMP Sodium 137 mmol/L (136-145) 01/12/17 08:15 Potassium 3.7 mmol/L (3.5-5.1) 01/12/17 08:15 Chloride 107 mmol/L (98-107) 01/12/17 08:15 Carbon Dioxide 19 mmol/L (21-32) L 01/12/17 08:15 Anion Gap 11 (8-16) 01/12/17 08:15 BUN 19 mg/dL (7-18) H D 01/12/17 08:15 Creatinine 1.1 mg/dL (0.7-1.3) 01/12/17 08:15 Creat Clearance w eGFR > 60 (>60) 01/10/17 07:20 Calcium 8.8 mg/dL (8.5-10.1) 01/12/17 08:15 Total Bilirubin 0.6 mg/dL (0.2-1.0) 01/10/17 07:20 AST 15 U/L (15-37) D 01/10/17 07:20 ALT 21 U/L (12-78) 01/10/17 07:20 Alkaline Phosphatase 84 U/L (45-117) 01/10/17 07:20 Total Protein 6.6 g/dl (6.4-8.2) 01/10/17 07:20 Albumin 3.7 g/dl (3.4-5.0) 01/10/17 07:20 MRI C spine reviewed Medical Decision Making 41 yo M with h/o migraines who returned to ED for ongoing migraine. He reports right sided pulsating head pain, radiating down right side of the neck to right arm with subsequent numbness/tingling beginning yesterday evening. He reports the symptoms were with gradual onset and worsening intensity. Endorses non biliary non bloody emesis, photophobia, and visual halos since yesterday evening. Denies fevers/chills, neck stiffness, weakness, chest pain, SOB, urinary complaints, GI/abdominal complaints. Recently seen in ED ( 01/09) for migraine and symptom control. Was treated with Toradol, Compazine, Reglan, Benadryl, Zofran, Dexamethasone, Magnesium sulfate with improvement in symptoms and sent home on Sumitripatan and told to f/u with me on Friday. Negative head CT ( 01/08). Since d/c has attempted Reglan Benadryl Ibrupfrofen, and Sumitrptan 50 mg PO x 1 with no improvement in symptoms. MRI of the cervical spine reviewed, stable with disc bulging but no significant spinal cord signal changes Migraine symptoms recurrent Started on Topamax 50mg twice daily Also on Ultram as needed May benefit from cyclobenzaprine for cervicalgia Relaxation recommended Continue Methadone maintenance as missed doses can precipitate his migraines Continue adequate hydration and by mouth intake Avoid any migraine triggers Can pursue physical therapy for cervicalgia as outpatient as well Has imitrex at home and can take this as needed
[2017-01-13] MEDS: CYCLOBENZAPRINE HCL 10 MG TABLET (FP) PO SCH ×2 (10:50→21:48)
--- NOTE | 2017-01-13 16:26 | PN ---
Progress Note, Physician History of Present Illness: Pt again with severe LISA ( he was crying his AM); pt receiving Toradol 3-4 times per day. Pt w/o SOB, CP, palp, abd pain. Pt c/o constipation, asking for Miralax. 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 Pt c/o right side LISA radiating to his neck. - Current Medication List Current Medications: Active Medications Acetaminophen (Tylenol -) 650 mg PO Q6H PRN PRN Reason: FEVER OR PAIN Last Admin: 01/12/17 08:00 Dose: 650 mg Cyclobenzaprine HCl (Flexeril -) 10 mg PO BID [facility] Last Admin: 01/13/17 10:50 Dose: 10 mg Dexamethasone Sodium Phosphate (Decadron Injection -) 10 mg IVPUSH ONCE PRN PRN Reason: HEADACHE Last Admin: 01/11/17 17:38 Dose: 10 mg Methadone HCl 40 mg/ Methadone (HCl 5 mg) 45 mg PO DAILY@0600 [facility] Last Admin: 01/13/17 05:51 Dose: 45 mg Metoclopramide HCl (Reglan Injection -) 10 mg IVPUSH ONCE PRN PRN Reason: HEADACHE Last Admin: 01/10/17 13:10 Dose: 10 mg Ondansetron HCl (Zofran Injection) 4 mg IVPB Q8H PRN PRN Reason: NAUSEA AND/OR VOMITING Last Admin: 01/13/17 08:25 Dose: 4 mg Pantoprazole Sodium (Protonix Iv) 40 mg IVPUSH DAILY [facility] Last Admin: 01/13/17 09:11 Dose: 40 mg Topiramate (Topamax -) 50 mg PO BID [facility] Last Admin: 01/13/17 09:11 Dose: 50 mg Tramadol HCl (Ultram -) 50 mg PO Q8H PRN PRN Reason: PAIN Last Admin: 01/13/17 08:07 Dose: 50 mg - Objective Vital Signs: Vital Signs Temperature 98.5 F 01/13/17 14:01 Pulse Rate 60 01/13/17 14:01 Respiratory Rate 20 01/13/17 14:01 Blood Pressure 121/68 01/13/17 14:01 O2 Sat by Pulse Oximetry (%) 99 01/13/17 08:30 Constitutional: Yes: Mild Distress, Other (again has his eyes covered with a towel) Cardiovascular: Yes: Regular Rate and Rhythm, S1, S2 Respiratory: Yes: Regular, CTA Bilaterally. No: Rales Gastrointestinal: Yes: Normal Bowel Sounds, Soft. No: Tenderness Edema: No Neurological: Yes: Alert, Oriented Labs: CBC, BMP 01/12/17 08:15 01/12/17 08:15 Problem List - Problems (1) Intractable complicated migraine with status migrainosus Code(s): G43.911 - MIGRAINE, UNSPECIFIED, INTRACTABLE, WITH STATUS MIGRAINOSUS (2) Leukocytosis Code(s): D72.829 - ELEVATED WHITE BLOOD CELL COUNT, UNSPECIFIED (3) Heroin use disorder, mild, on maintenance therapy Code(s): F11.10 - OPIOID ABUSE, UNCOMPLICATED (4) Constipation Code(s): K59.00 - CONSTIPATION, UNSPECIFIED (5) IBS (irritable bowel syndrome) Code(s): K58.9 - IRRITABLE BOWEL SYNDROME WITHOUT DIARRHEA (6) Bulging of intervertebral disc Assessment/Plan: of cervical spine, multilevel. Probable secondary to fall, at home. Code(s): SOE0281 - (7) Cervicalgia Code(s): M54.2 - CERVICALGIA Assessment/Plan IV Toradol IV Zofran Off IV fluids IV Decardon Neurology consult appreciated. Case was d/w Dr. Schmidt; trial of Topamax and Tramadol. To add cyclobenzaprine. To monitor as inpatient ; would be unsafe to sent pt home home as pt new medication is added, potential for interaction with other meds is high. To DC Motrin. Case was d/w pt's nurse
[2017-01-13] MEDS: ACETAMINOPHEN 325 MG TABLET (FP) PO PRN (19:42)
[2017-01-14] MEDS ORDERED: METHADONE HCL 40 MG DISPERSABLE TABLET ONE (06:26)
[2017-01-14] MEDS ORDERED: METHADONE HCL 5 MG TABLET ONE (06:27)
[2017-01-14] MEDS: METHADONE 40 MG, METHADONE 5 MG PO SCH (06:29)
[2017-01-14] MEDS: ACETAMINOPHEN 325 MG TABLET (FP) PO PRN (06:29)
[2017-01-14] MEDS: CYCLOBENZAPRINE HCL 10 MG TABLET (FP) PO SCH (09:14)
--- NOTE | 2017-01-14 10:04 | PN ---
Progress Note (short form) - Note Progress Note: Neurology History of Present Illness 41 yo M with h/o migraines who returned to ED for ongoing migraine. He reports right sided pulsating head pain, radiating down right side of the neck to right arm with subsequent numbness/tingling beginning yesterday evening. He reports the symptoms were with gradual onset and worsening intensity. Endorses non biliary non bloody emesis, photophobia, and visual halos since yesterday evening. Denies fevers/chills, neck stiffness, weakness, chest pain, SOB, urinary complaints, GI/abdominal complaints. Recently seen in ED ( 01/09) for migraine and symptom control. Was treated with Toradol, Compazine, Reglan, Benadryl, Zofran, Dexamethasone, Magnesium sulfate with improvement in symptoms and sent home on Sumitripatan and told to f/u with me on Friday. Negative head CT ( 01/08). Since d/c had attempted Reglan Benadryl Ibrupfrofen, and Sumitrptan 50 mg PO x 1 with no improvement in symptoms. Patient was on methadone for heroin and had not received medication and this may be why he had recurrence of symptoms. Is now much improved and stabilized. He had endorsed symptoms of cervicalgia and cervical radiculopathaolopy and we completed MRI of the cervical spine. I reviewed images and official report, mild bulging noted but significant spinal cord changes. Much improved this morning with Cyclobenzaprine and topamax combination. Sitting up in bed and conversive. Slight neck pain and slight headache but much better than last few days. May be able to complete discharge today. Active Medications Acetaminophen (Tylenol -) 650 mg PO Q6H PRN PRN Reason: FEVER OR PAIN Last Admin: 01/14/17 06:29 Dose: 650 mg Cyclobenzaprine HCl (Flexeril -) 10 mg PO BID [facility] Last Admin: 01/14/17 09:14 Dose: 10 mg Dexamethasone Sodium Phosphate (Decadron Injection -) 10 mg IVPUSH ONCE PRN PRN Reason: HEADACHE Last Admin: 01/11/17 17:38 Dose: 10 mg Methadone HCl 40 mg/ Methadone (HCl 5 mg) 45 mg PO DAILY@0600 [facility] Last Admin: 01/14/17 06:29 Dose: 45 mg Metoclopramide HCl (Reglan Injection -) 10 mg IVPUSH ONCE PRN PRN Reason: HEADACHE Last Admin: 01/10/17 13:10 Dose: 10 mg Ondansetron HCl (Zofran Injection) 4 mg IVPB Q8H PRN PRN Reason: NAUSEA AND/OR VOMITING Last Admin: 01/13/17 08:25 Dose: 4 mg Pantoprazole Sodium (Protonix Iv) 40 mg IVPUSH DAILY [facility] Last Admin: 01/13/17 09:11 Dose: 40 mg Topiramate (Topamax -) 50 mg PO BID [facility] Last Admin: 01/13/17 21:48 Dose: 50 mg Tramadol HCl (Ultram -) 50 mg PO Q8H PRN PRN Reason: PAIN Last Admin: 01/13/17 08:07 Dose: 50 mg *Physical Exam Vital Signs Temperature 98.5 F 01/14/17 06:00 Pulse Rate 71 01/14/17 06:00 Respiratory Rate 18 01/14/17 06:00 Blood Pressure 107/59 01/14/17 06:00 O2 Sat by Pulse Oximetry (%) 100 01/13/17 22:00 GENERAL: Awake, alert, and fully oriented, in distress. HEAD: No signs of trauma, normocephalic, atraumatic EYES: PERRLA, EOMI, sclera anicteric, conjunctiva clear ENT: hearing grossly normal, nares patent, oropharynx clear without exudates. Moist mucosa NECK: Normal ROM, supple, no JVD, or masses LUNGS: No distress, speaks full sentences, clear to auscultation bilaterally HEART: Regular rate and rhythm, normal S1 and S2, no murmurs, rubs or gallops, peripheral pulses normal and equal bilaterally. EXTREMITIES : Normal inspection, Normal range of motion, no edema. No clubbing or cyanosis. NEUROLOGICAL: Cranial nerves II through XII grossly intact. Normal speech, no focal sensorimotor deficits SKIN: Warm, Dry, normal turgor, no rashes or lesions noted. CBCD WBC 15.0 K/mm3 (4.0-10.0) H 01/12/17 08:15 RBC 4.75 M/mm3 (4.00-5.60) 01/12/17 08:15 Hgb 14.4 GM/dL (11.7-16.9) 01/12/17 08:15 Hct 42.4 % (35.4-49) 01/12/17 08:15 MCV 89.4 fl (80-96) 01/12/17 08:15 MCHC 34.0 g/dl (32.0-35.9) 01/12/17 08:15 RDW 13.3 % (11.9-15.9) 01/12/17 08:15 Plt Count 207 K/MM3 (134-434) 01/12/17 08:15 MPV 8.5 fl (7.5-11.1) 01/12/17 08:15 CMP Sodium 137 mmol/L (136-145) 01/12/17 08:15 Potassium 3.7 mmol/L (3.5-5.1) 01/12/17 08:15 Chloride 107 mmol/L (98-107) 01/12/17 08:15 Carbon Dioxide 19 mmol/L (21-32) L 01/12/17 08:15 Anion Gap 11 (8-16) 01/12/17 08:15 BUN 19 mg/dL (7-18) H D 01/12/17 08:15 Creatinine 1.1 mg/dL (0.7-1.3) 01/12/17 08:15 Creat Clearance w eGFR > 60 (>60) 01/10/17 07:20 Calcium 8.8 mg/dL (8.5-10.1) 01/12/17 08:15 Total Bilirubin 0.6 mg/dL (0.2-1.0) 01/10/17 07:20 AST 15 U/L (15-37) D 01/10/17 07:20 ALT 21 U/L (12-78) 01/10/17 07:20 Alkaline Phosphatase 84 U/L (45-117) 01/10/17 07:20 Total Protein 6.6 g/dl (6.4-8.2) 01/10/17 07:20 Albumin 3.7 g/dl (3.4-5.0) 01/10/17 07:20 MRI C spine reviewed Medical Decision Making 41 yo M with h/o migraines who returned to ED for ongoing migraine. He reports right sided pulsating head pain, radiating down right side of the neck to right arm with subsequent numbness/tingling beginning yesterday evening. He reports the symptoms were with gradual onset and worsening intensity. Endorses non biliary non bloody emesis, photophobia, and visual halos since yesterday evening. Denies fevers/chills, neck stiffness, weakness, chest pain, SOB, urinary complaints, GI/abdominal complaints. Recently seen in ED ( 01/09) for migraine and symptom control. Was treated with Toradol, Compazine, Reglan, Benadryl, Zofran, Dexamethasone, Magnesium sulfate with improvement in symptoms and sent home on Sumitripatan and told to f/u with me on Friday. Negative head CT ( 01/08). Since d/c has attempted Reglan Benadryl Ibrupfrofen, and Sumitrptan 50 mg PO x 1 with no improvement in symptoms. MRI of the cervical spine reviewed, stable with disc bulging but no significant spinal cord signal changes Migraine symptoms improved with Topamax 50mg twice daily, can continue as outpatient Also benefit from cyclobenzaprine for cervicalgia, can continue as outpatient Relaxation recommended Continue Methadone maintenance as missed doses can precipitate his migraines Continue adequate hydration and by mouth intake Avoid any migraine triggers Has imitrex at home and can take this as needed Neurologically stable
--- NOTE | 2017-01-14 10:26 | DS ---
Physical Examination Vital Signs: Vital Signs Temperature 98.5 F 01/14/17 06:00 Pulse Rate 71 01/14/17 06:00 Respiratory Rate 18 01/14/17 06:00 Blood Pressure 107/59 01/14/17 06:00 O2 Sat by Pulse Oximetry (%) 100 01/13/17 22:00 Findings/Remarks: Pt feels better today with LISA and neck pain; he is not lightheaded or dizzy or confused. Pt didn't ask for Tramadol for breakthrough pain, only for Tylenol. Pt w/o SOB, CP, palp, abd pain. Constitutional: Yes: No Distress, Calm Cardiovascular: Yes: Regular Rate and Rhythm, S1, S2 Respiratory: Yes: Regular, CTA Bilaterally. No: Rales Gastrointestinal: Yes: Normal Bowel Sounds, Soft. No: Tenderness Edema: No Neurological: Yes: Alert, Oriented Psychiatric: Yes: Alert, Oriented Labs: CBC, BMP 01/12/17 08:15 01/12/17 08:15 Discharge Summary Reason For Visit: MIGRAINE WITH AURA Current Active Problems Bulging of intervertebral disc (Acute) Constipation (Acute) Heroin use disorder, mild, on maintenance therapy (Acute) IBS (irritable bowel syndrome) (Acute) Intractable complicated migraine with status migrainosus (Acute) Leukocytosis (Acute) Migraine headache with aura (Acute) Procedures: Principal: C spine MRI Hospital Course: Pt with refractory, severe LISA (not relief at home by regular treatment, treated in ER with temporary improvement) returned to ER with refractory severe LISA associated with severe photophobia (pt couldn't keep his eyes opened, kept eyes covered all the time) and right hand/ finger numbness. Pt was seen by Neurology (Dr. Schmidt). Pt was admitted and treated with IV medication ( Decadrone, Reglan, Ketorolac, Benadryl, Zofran) with temporary relief of LISA; as his LISA was refractory to medication he was started on Topamax (Scheduled BID)and Tramodol ( which patient took few times a day, with significant improvement in his LISA; as pt has a Hx/o Heroine abuse on Methadone it was felt that Tramadol might be unsafe as home medication and prescribed just as a breakthrough PRN medication) . Pt with recent fall at home and neck pain, had an MRI of C spine (showed multilevel disc bulging). Pt was started on Cyclobenzaprine (scheduled BID) yesterday and was monitored for interaction with other medication and efficacy. Pt reported this AM improvement in LISA and neck pain and photophobia (using only sunglasses, for the first time since admission). Pt to be discharged home with outpatient followup with Neuro and PCP. Condition: Stable - Instructions Diet, Activity, Other Instructions: Diet: regular Activity: to start PT for neck pain; light duty work activity (pt was recommended not to lift more than 10 pounds, mainly using left hand- pt states that needs to work and can manage to lift light weights with his left hand only) . Referrals: Armani Schmidt MD [Staff Physician] - (as scheduled- already scheduled) Vipul Calderon MD [Staff Physician] - (in 2-3 weeks) Disposition: HOME - Home Medications Comprehensive Discharge Medication List: Ambulatory Orders this list might NOT be accurate. Aspirin/Acetaminophen/Caffeine [Excedrin Migraine Caplet] 1 each PO PRN PRN Diphenhydramine [Benadryl Capsule -] 50 mg PO QID PRN #20 capsule 09/13/15 Metoclopramide HCl [Reglan] 10 mg PO TID PRN #20 tablet MDD 3 04/05/16 Ibuprofen 800 mg PO TID PRN MDD 3 01/08/17 Methadone [Dolophine -] 48 mg PO DAILY 01/08/17 Sumatriptan Succinate [Imitrex] 50 mg PO ONCE PRN #5 tablet 01/08/17
[2017-01-14] MEDS: PANTOPRAZOLE SODIUM 40 MG VIAL IVPUSH SCH (11:34)
[2017-01-14] MEDS: TOPIRAMATE 25 MG TABLET (FP) PO SCH (11:35)
[2017-01-14 14:53] VITALS: BP 112/68; PULSE 93; TEMP 98
== END 2017-01-14 15:16 | disposition home or self-care (01) | DRG 103 ==
LOC: JER 07:43 → JERBED 10:30 → OBSVTOIN 11:51 → J5S 14:49
PROVIDERS: ADMIT Specialist; ATTEND Specialist
DX: G43.111 Migraine with aura, intractable, with status migrainosus (principal); F11.20 Opioid dependence, uncomplicated; Z87.891 Personal history of nicotine dependence; K59.00 Constipation, unspecified; M50.80 Other cervical disc disorders, unspecified cervical region; K58.9 Irritable bowel syndrome, unspecified
CPT/HCPCS: 36415; 72141-TC; 80048; 80053; 85025; 85027; 99282-25; G0378

== ENCOUNTER 2017-02-12 05:14 | Day surgery (SDC) | payer OTHER ==
[2017-02-11 15:39] VITALS: BMI 27.1
[~2017-02-12 05:14] MED LIST: BUPIVACAINE HCL/PF 0.25% (2.5MG/ML) 10 ML VIAL IJ ONE; LIDOCAINE HCL 1% PRESERVATIVE FREE - 30ML VIAL IJ ONE; methylPREDNISolone ACET (DEPO) 80 MG/1 ML VIAL IJ ONE
[2017-02-12 07:12] VITALS: TEMP 98.4
[2017-02-12] MEDS ORDERED: BUPIVACAINE HCL/PF 0.25% (2.5MG/ML) 10 ML VIAL ONE (07:20)
[2017-02-12] MEDS ORDERED: methylPREDNISolone ACET (DEPO) 80 MG/1 ML VIAL ONE ×2 (07:20→08:42)
[2017-02-12] MEDS ORDERED: MIDAZOLAM HCL 2 MG/2 ML SINGLE DOSE VIAL ONE ×3 (08:36→09:02)
[2017-02-12] MEDS ORDERED: methylPREDNISolone ACET (DEPO) 80 MG/1 ML VIAL IJ ONE (09:03)
[2017-02-12] MEDS ORDERED: LIDOCAINE HCL 1% PRESERVATIVE FREE - 30ML VIAL IJ ONE ×3 (09:03)
[2017-02-12] MEDS ORDERED: BUPIVACAINE HCL/PF 0.25% (2.5MG/ML) 10 ML VIAL IJ ONE ×2 (09:03)
[2017-02-12 11:53] VITALS: BP 114/69; PULSE 94
--- NOTE | 2017-02-13 09:12 | OP ---
DATE OF OPERATION: 02/12/2017 PREOPERATIVE DIAGNOSIS: Right C3-C4 foraminal stenosis, right C4 radiculopathy. POSTOPERATIVE DIAGNOSIS: Right C3-C4 foraminal stenosis, right C4 radiculopathy. ATTENDING SURGEON: Shmuel Mcmanus MD PROCEDURE: 1. Right C3-C4 epidural steroid injection. 2. Intraoperative fluoroscopy. ANESTHESIA: Local with IV sedation. ANESTHESIOLOGIST: Cale Mcclain MD INDICATIONS: The patient is a 41-year-old male with intractable neck pain and right upper extremity radiculopathy. He is here for his first epidural steroid injection after having failed conservative treatment. The risks of the procedure include , but are not limited to, bleeding, infection, spinal headache, and neurological injury. The patient understands the indications for the procedure, the procedure in detail, risks and benefits, and alternative treatments of his condition, and he wishes to proceed. No guarantees were given for a favorable outcome. PROCEDURE IN DETAIL: After the patient was taken to the operating room, he was placed in the prone position with pillow under his chin. Head was secured in a foam headrest. Arms were tucked down to the sides. Posterior cervical region cleaned was alcohol and prepped with Betadine. A skin wheal was raised with 5 mL of 1% Xylocaine. A 22-gauge spinal needle was inserted under AP and lateral fluoroscopic guidance from a right-sided approach to bottom of C3 lamina near right C3-C4 facet. Needle was then marched medially towards the epidural space and near the lateral recess. Loss of resistance technique was utilized, and there was no CSF or blood backflow. The procedure was done with AP and lateral fluoroscopic guidance. Depo-Medrol 80 mg and 1 mL of 0.25% Marcaine were injected. The needle was withdrawn and sterile bandage was applied. The patient tolerated the procedure well and was turned back to the supine position, moving bilateral upper and lower extremities well. He did not complain of headache. SHMUEL MCMANUS M.D. [id number] MTDD
== END 2017-02-12 12:07 | disposition home or self-care (01) ==
LOC: JASU-SURG 05:14
PROVIDERS: ATTEND Neurological Surgery
PROC: 3E0R33Z Introduction of Anti-inflammatory into Spinal Canal, Percutaneous Approach (ICD-10-PCS; 2017-02-12)
PROC: B01BZZZ Fluoroscopy of Spinal Cord (ICD-10-PCS; 2017-02-12)
PROC: 3E0R3BZ Introduction of Anesthetic Agent into Spinal Canal, Percutaneous Approach (ICD-10-PCS; principal; 2017-02-12 08:30)
DX: M48.02 Spinal stenosis, cervical region (principal); M54.12 Radiculopathy, cervical region
CPT/HCPCS: 76000-TC

== ENCOUNTER 2018-01-07 05:07 | Inpatient (IN) | payer OTHER ==
[2017-12-29 11:37] VITALS: BMI 26.6
[2018-01-07] MEDS ORDERED: THROMBIN (BOVINE) 5,000 UNIT VIAL TP ONE ×2 (07:17→08:57)
[2018-01-07] MEDS ORDERED: BACITRACIN 15 GM TUBE TOPICAL OINTMENT ONE (07:17)
[2018-01-07] MEDS ORDERED: MIDAZOLAM HCL 2 MG/2 ML SINGLE DOSE VIAL ONE ×2 (08:07)
[2018-01-07] MEDS ORDERED: ROCURONIUM BROMIDE 50 MG/5 ML VIAL ONE (08:12)
[2018-01-07] MEDS ORDERED: PROPOFOL 20 ML ONE ×10 (08:12→09:27)
[2018-01-07] MEDS ORDERED: ceFAZolin SODIUM 1 GM VIAL IVPB ONE ×2 (08:25→16:30)
[2018-01-07] MEDS ORDERED: BACITRACIN 15 GM TUBE TOPICAL OINTMENT TP ONE (08:48)
[2018-01-07] MEDS ORDERED: GELATIN SPONGE,ABSORBABLE 1 GM PACKET TP ONE (08:57)
[2018-01-07] MEDS ORDERED: BACITRACIN 50,000 UNITS VIAL TP ONE (08:57)
--- NOTE | 2018-01-07 10:38 | OP ---
Operative Note - Note: Operative Date: 01/07/18 Pre-Operative Diagnosis: C6-7 HNP with radiculopathy Operation: Cranial traction tongs; anterior cervical discectomy with fusion C6-7 ; anterior interbody implant; anterior cervical fixation system; microdissection Findings: anterior vertebral fibrosis; sensitive B C7 roots Implants: 7 mm lordotic interbody implant ([employer]); 22mm Trinica Select plate and 14 mm variable angle screws x4 (Baldo Spine) Surgeon: Shmuel Roque Emergency Department Physician: Han Mclaughlin (Susy LILLY) Anesthesiologist/CHIEF MEDICAL PHYSICIST: Courtney Deras MD Specimens Removed: C6-7 HNP Estimated Blood Loss (mls): 50 Operative Report Dictated: Yes
[2018-01-07] MEDS ORDERED: ONDANSETRON 4 MG/2 ML VIAL IVPUSH PRN ×2 (10:40→11:20)
[2018-01-07] MEDS ORDERED: diphenhydrAMINE HCL 25 MG CAPSULE (FP) PO PRN (10:41)
[2018-01-07] MEDS ORDERED: METOCLOPRAMIDE HCL 10 MG TABLET (FP) PO PRN (10:41)
[2018-01-07] MEDS ORDERED: LACTATED RINGERS SOLUTION 1,000 ML IV SCH (11:30)
--- NOTE | 2018-01-07 11:35 | PN ---
Progress Note (short form) - Note Progress Note: NEUROSURGERY In PACU AF, VSS, O2 sat 99% More awake now than earlier NO breathing difficulty PE: General- unremarkable Dressing- C/D/I, Small amount of sq hematoma CN- intact; Motor- at least 4- B UE/LE; Sensation- intact LT X-rays in AM Intra-op findings d/w pt and father Check CBC, INR/PTT Monitor wound Adv diet in 2 hours if wound stable and tolerated
[2018-01-07 13:25] LABS: BASO % 0.5 % (0-2.0); EOS % 0.2 % (0-4.5); HEMATOCRIT 40.5 % (35.4-49); HEMOGLOBIN 13.5 GM/dL (11.7-16.9); LYMPH % 7.5 % (8-40); MCH 31.2 pg (25.7-33.7); MCHC 33.3 g/dl (32.0-35.9); MEAN CELL VOLUME 93.6 fl (80-96); MEAN PLT VOLUME 9.9 fl (7.5-11.1); MONO % 1.9 % (3.8-10.2); NEUT % 89.9 % (42.8-82.8); PLATELET COUNT 162 K/MM3 (134-434); RBC 4.33 M/mm3 (4.00-5.60); RDW 13.9 % (11.9-15.9); WHITE BLOOD COUNT 9.4 K/mm3 (4.0-10.0)
[2018-01-07 14:03] LABS: INR 1.07 (0.83-1.09); PROTHROMBIN TIME (PATIENT) 12.6 SEC (9.7-13.0)
[2018-01-07 14:06] LABS: ACTIVATED PTT 31.6 SECONDS (25.2-36.5)
--- NOTE | 2018-01-07 14:25 | OP ---
DATE OF OPERATION: 01/07/2018 PREOPERATIVE DIAGNOSIS: 1. Central right-sided C5-C7 disk protrusion with neck pain and cervical radiculopathy. 2. Cervical spondylosis. POSTOPERATIVE DIAGNOSIS: 1. Central right-sided C5-C7 disk protrusion with neck pain and cervical radiculopathy. 2. Cervical spondylosis. PROCEDURE: 1. Anterior preoperative placement and postoperative removal of cranial traction tongs (25787). 2. Anterior cervical diskectomy and interbody fusion at C6-7 (74375). 3. Microsurgical dissection with operative microscope and microsurgical technique (67230). 4. Utilization of deep vertebral lordotic device at C6-7 (21016). 5. Anterior cervical instrumentation, C6-7, with Baldo Spine and Trinica Select 22-mm Titanium Plate and six 14-mm Variable Titanium Screws (72189). COMPLICATIONS: None. SURGEON: Shmuel Roque MD QUALITY CONTROL EXPERT: Han Mclaughlin MD SECOND QUALITY CONTROL EXPERT: VIJAYA Powell ESTIMATED BLOOD LOSS: 50 mL. FINDINGS: 1. Sensitive bilateral C7 nerve roots. 2. Friable tissue with increasing venous oozing. INDICATION: Patient is a 42-year-old male with intractable neck pain with right C6-7 radiculopathy. Because of his intractable symptoms and failure of conservative treatment, he is consented for anterior cervical decompression and fusion with instrumentation. The risks of procedure include but were limited to, bleeding, infection, dural tear with CSF leak, neurological injury including thromboembolic risks, and other risks of general anesthesia. The patient understands indications for the procedure, procedure in detail, risks and benefits, and alternatives for treatment of his cervical spine condition and wishes to proceed. No guarantees were given for a favorable outcome. PROCEDURE IN DETAIL: After the patient was taken to the operating room, he was placed in the supine position. After general anesthesia was induced and appropriate lines were placed, the head was secured on [place] in neutral position. The shoulders were rotated down to sides. The anterior cervical cranial retraction tongs were placed with bacitracin ointment. No traction weight was placed until baseline SSEP, EMG, and MEP signals were obtained. Anterior cervical region was cleaned with alcohol and prepped with Betadine. Local anesthesia was then obtained. Approximately 1-1/2-incision was opened overlying a skin crease. Skin incision was opened with a number 10 blade. There was some moderate degree of oozing. Hemostasis was obtained. Self-retaining retractors were inserted. Platysmas muscle was very thin. It was split longitudinally. Dissection proceeded medial to the carotid sheath and lateral to the trachea and esophagus. Prevertebral fascia was found to be fibrotic. Localizing x-ray was obtained, and spinal needle was placed at C6-7 disk space. After position was verified, longus colli muscle was reflected laterally with periosteal elevator and coagulated with monopolar electrocautery. A self- retaining radiolucent retractor system was reinserted. At this point, disk annulus was incised with number 15 blade, and disk material was mobilized with pituitary rongeur as well as Kerrison rongeur. Bottom of the vertebral endplate at C6 and top of the vertebral endplate of C7 was burred down with high-speed pneumatic drill and cleaned with angled and straight curettes. The bilateral foraminotomy was carried out with angled curette and Kerrison rongeur. The microscope was used for this portion of procedure for both illumination and magnification. Microsurgical technique was utilized. The posterior longitudinal ligament was dissected free with angled curette and resected with Kerrison rongeur. Epidural hemostasis was obtained with thrombin-soaked powder Gelfoam, and bipolar electrocautery. There was somewhat more than the usual amount of epidural venous oozing as well. After the decompression was completed, the disk space measured to be 17- to 18-mm wide and 17-mm in height. AP diameter was about 16 mm. A 7-mm lordotic implant from [employer] was utilized. It was a sized first, and then inserted and countersunk by about 2 mm. The interbody implant was therefore completed at this level. A 22-mm Trinica Select Titanium Plate was secured with fixation pins, and 14-mm angled screws were placed. The screw holes were first drilled with a handheld drill and drill guide and then 14-mm Variable Angled screws were placed. The interbody implant was countersunk by approximately 2 mm. After decompression was completed and fusion was completed, the locking mechanism screw for plating system were applied. Final lateral cervical spine x-ray demonstrates satisfactory position of the implants. At this point, the wound was irrigated with antibiotic irrigation. Hemostasis was maintained with bipolar electrocautery. A piece of surgicel laid on top of the plate as well dissection tract. The platysmal muscle was closed with 3-0 Vicryl suture, as well as subcutaneous fascia was similarly closed. The skin was closed with 4-0 Vicryl running subcuticular suture. Steri-Strips and sterile occlusive dressing was applied. The patient tolerated the procedure well, and was extubated in the operating room. He was moving. The SSEP, EMG, and MEP signals remained stable throughout. Needle and lap counts were correct. OR timeout procedure was followed. The patient received 1 dose of 1 g of Ancef and 10 mg of Decadron prior to the incision. The patient's father was updated as to the intraoperative findings as well as the patient postoperative condition. SHMUEL ROQUE M.D. [id number] MTDD
[2018-01-07] MEDS ORDERED: ceFAZolin SODIUM 1 GM VIAL ONE ×2 (16:16→21:11)
[2018-01-07] MEDS ORDERED: oxyCODONE HCL 5 MG TABLET ONE (16:36)
[2018-01-07] MEDS: oxyCODONE HCL 5 MG TABLET PO PRN (16:39)
[2018-01-07] MEDS ORDERED: CEFAZOLIN 1 GM in DEXTROSE 5%-WATER - 50 ML IVPB SCH (18:00)
[2018-01-07] MEDS: D5-1/2NS+20 MEQ KCL - 20 MEQ/1,000 ML INFUS.BAG IV SCH (19:04)
[2018-01-07] MEDS: DOCUSATE SODIUM 100 MG CAPSULE (FP) PO SCH ×2 (19:04→21:13)
[2018-01-07] MEDS: diazePAM 5 MG TABLET PO SCH ×2 (19:04→19:18)
[2018-01-07] MEDS: GABAPENTIN 300 MG CAPSULE (FP) PO SCH ×2 (19:04→19:18)
[2018-01-07] MEDS ORDERED: PT OWN MED DRAWER 7, Y5N ONE (19:10)
[2018-01-07] MEDS ORDERED: DEXTROSE 5%-WATER - 50 ML IVPB ONE (21:12)
[2018-01-07] MEDS: CEFAZOLIN 1 GM in DEXTROSE 5%-WATER - 50 ML IVPB SCH (21:13)
[2018-01-08] MEDS: oxyCODONE HCL 5 MG TABLET PO PRN ×2 (02:00→11:41)
[2018-01-08] MEDS ORDERED: DEXTROSE 5%-WATER - 50 ML IVPB ONE (05:11)
[2018-01-08] MEDS ORDERED: ceFAZolin SODIUM 1 GM VIAL ONE (05:11)
[2018-01-08] MEDS: CEFAZOLIN 1 GM in DEXTROSE 5%-WATER - 50 ML IVPB SCH (05:14)
[2018-01-08] MEDS: DOCUSATE SODIUM 100 MG CAPSULE (FP) PO SCH ×3 (05:14→22:29)
[2018-01-08] MEDS: GABAPENTIN 300 MG CAPSULE (FP) PO SCH ×3 (05:14→22:29)
[2018-01-08] MEDS: diazePAM 5 MG TABLET PO SCH ×3 (05:14→22:29)
[2018-01-08] MEDS: D5-1/2NS+20 MEQ KCL - 20 MEQ/1,000 ML INFUS.BAG IV SCH ×2 (05:15→11:25)
--- NOTE | 2018-01-08 06:54 | PN ---
Progress Note (short form) - Note Progress Note: NEUROSURGERY POD #1 On 8W C/o H/A (usual migraine pattern) Some L hand paresthesia. R hand feels better AF, VSS No breathing difficulty PE: General- unremarkable Dressing- C/D/I, changed CN- intact; Motor- at least 4+ B UE/LE; Sensation- intact LT C spine X-rays pending Intra-op findings d/w pt and father CBC/platelet, INR/PTT normal Imitrex Adv diet Plan d/c home today if H/A subsides and able to tolerate diet, otherwise convert to admission
[2018-01-08] MEDS ORDERED: SUMAtriptan SUCCINATE 25 MG TABLET PO ONE ×2 (07:02→21:45)
[2018-01-08] MEDS ORDERED: DEXAMETHASONE SOD PHOSPHATE 4 MG/1 ML VIAL IVPUSH ONE (07:30)
[2018-01-08] MEDS ORDERED: PT OWN MED DRAWER 7, Y5N ONE (10:29)
--- NOTE | 2018-01-08 11:16 | PN ---
Progress Note (short form) - Note Progress Note: Anesthesia Pt seen and examined S:Alert and awake O: Vital Signs Temperature 98.6 F 01/08/18 06:51 Pulse Rate 86 01/08/18 06:51 Respiratory Rate 20 01/08/18 06:51 Blood Pressure 128/73 01/08/18 06:51 O2 Sat by Pulse Oximetry (%) 99 01/07/18 18:43 CBC, BMP 01/07/18 12:15 A/P s/pACDF Doing well post op Continue current care Isaac Chino MD
--- NOTE | 2018-01-08 13:31 | PATH ---
Surgical Pathology Report Patient Name: IQRA DUFF JR Med. Rec. #: [id number] /Age/Gender: 1975 (Age: 42) / M Account: [id number] Location: [facility] MED/SURG Taken: 01/07/2018 Received: 01/07/2018 Reported: 01/08/2018 Physicians: Shmuel Roque M.D. Specimen(s) Received C6-C7 DISC Clinical History C6-7 herniated disc radiculopathy Final Diagnosis DISC, C6-C7, ANTERIOR CERVICAL DECOMPRESSION AND FUSION: BENIGN INTERVERTEBRAL DISC TISSUE. Electronically Signed Enma Segura M.D. Gross Description Received in formalin labeled "C6-C7 disc," is a 2.5 x 2.0 x 0.3 cm aggregate of luo fragments of fibrocartilaginous tissue. The formalin is filtered and the specimen is entirely submitted in one cassette. 01/07/201801/07/2018
[2018-01-09] MEDS: GABAPENTIN 300 MG CAPSULE (FP) PO SCH ×2 (05:29→13:03)
[2018-01-09] MEDS: diazePAM 5 MG TABLET PO SCH ×2 (05:29→13:03)
[2018-01-09] MEDS: DOCUSATE SODIUM 100 MG CAPSULE (FP) PO SCH ×2 (05:29→13:02)
--- NOTE | 2018-01-09 08:49 | PN ---
Progress Note (short form) - Note Progress Note: NEUROSURGERY POD #2 On 8W C/o H/A (usual migraine pattern), less this an Some L hand paresthesia. 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
--- NOTE | 2018-01-09 10:40 | CONSULT ---
Consult Consult Specialty:: IM Referred by:: Dr. Mehreen Roque Reason for Consultation:: Medical follow up - History of Present Illness Chief Complaint: Medical F/u. LISA History of Present Illness: Pt is known to me from office, with Hx/o migraines, Neck pain, cervical spine disc disease, had cervical spine Sx 2 days ago; pt c/o worsening HAs, resolving with Imitrex but recurrent. 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: Yes: Migraine Gastrointestinal: Yes: Irritable Bowel Disease Infectious Disease: Yes: Other (Sinusitis) Additional Medical History: On Methadone (tappering dose) - Alcohol/Substance Use Hx Alcohol Use: No - Smoking History Smoking history: Former smoker Have you smoked in the past 12 months: No Aproximately how many cigarettes per day: 7 If you are a former smoker, when did you quit?: 07/17/17 Home Medications - Allergies Allergies/Adverse Reactions: Allergies Allergy/AdvReac Type Severity Reaction Status Date / Time ciprofloxacin Allergy Severe Verified 01/07/18 07:05 levofloxacin [From Levaquin] Allergy Intermediate Verified 01/07/18 07:05 - Home Medications Home Medications: Ambulatory Orders Diphenhydramine [Benadryl Capsule -] 50 mg PO QID PRN #20 capsule 09/13/15 Metoclopramide HCl [Reglan] 10 mg PO TID PRN #20 tablet MDD 3 04/05/16 Ibuprofen 800 mg PO TID PRN MDD 3 01/08/17 Aspirin [Aspirin EC] 325 mg PO DAILY PRN 02/11/17 Gabapentin [Neurontin -] 300 mg PO Q8H 02/11/17 Methadone [Dolophine -] 19 mg PO DAILY 02/12/17 Cyclobenzaprine HCl [Flexeril -] 10 mg PO TID PRN MDD 2 12/29/17 Oxycodone HCl 5 mg PO QID #28 tablet MDD 4 01/08/18 Review of Systems - Review of Systems Constitutional: denies: Chills, Fever Eyes: reports: Photophobia (common with his migraines). denies: Blurred Vision , Double Vision HENT: denies: Difficult Swallowing, Ear Discharge, Ear Pain, Mouth Swelling, Nasal Congestion, Toothache Neck: reports: Pain on Movement (improved after surgery) Cardiovascular: denies: Chest Pain, Edema, Palpitations Respiratory: denies: Cough, SOB Gastrointestinal: denies: Abdominal Pain, Diarrhea, Nausea, Vomiting Genitourinary: denies: Burning, Discharge Neurological: reports: Other (left hand 4-5 fingers numbness for the last 1-2 days). denies: Change in LOC, Change in Speech, Numbness, Weakness Endocrine: denies: Excessive Sweating, Intolerance to Cold Hematology/Lymphatic: denies: Easily Bruised, Excessive Bleeding Psychiatric: denies: Anxiety, Depression Physical Exam Vital Signs: Vital Signs Temperature 98.4 F 01/09/18 04:00 Pulse Rate 80 01/09/18 04:00 Respiratory Rate 18 01/09/18 04:00 Blood Pressure 119/63 01/09/18 04:00 O2 Sat by Pulse Oximetry (%) 99 01/07/18 18:43 Constitutional: Yes: No Distress, Calm Eyes: Yes: Conjunctiva Clear, EOM Intact, PERRL HENT: No: Drooling, Nasal Congestion, Rhinnorhea Neck: Yes: Trachea Midline, Other. No: Lymphadenopathy Cardiovascular: Yes: Regular Rate and Rhythm, S1, S2 Respiratory: Yes: Regular, CTA Bilaterally. No: Rales Gastrointestinal: Yes: Normal Bowel Sounds, Soft. No: Tenderness ...Rectal Exam: Yes: Deferred Edema: No Neurological: Yes: Alert, Oriented, Other (motor and sensory examination is symmetric except minimal decreased sensory in left 4 and 5 fingers) ...Motor Strength: WNL Psychiatric: Yes: Alert, Oriented Labs: CBC, BMP 01/07/18 12:15 Imaging - Results X-ray: Report Reviewed Cat Scan: Report Reviewed Problem List - Problems (1) Cervical disc disease Code(s): M50.90 - CERVICAL DISC DISORDER, UNSP, UNSPECIFIED CERVICAL REGION (2) S/P discectomy Code(s): Z98.890 - OTHER SPECIFIED POSTPROCEDURAL STATES (3) Cervical vertebral fusion Code(s): M43.22 - FUSION OF SPINE, CERVICAL REGION (4) Migraine Code(s): G43.909 - MIGRAINE, UNSP, NOT INTRACTABLE, WITHOUT STATUS MIGRAINOSUS Assessment/Plan Trial od Topamax( pt was on it for retractable migraines) Continue other meds. TO f/u with Dr. Roque for further management.
[2018-01-09] MEDS ORDERED: SUMAtriptan SUCCINATE 25 MG TABLET PO ONE (11:00)
[2018-01-09 11:42] VITALS: BP 110/70
[2018-01-09] MEDS: oxyCODONE HCL 5 MG TABLET PO PRN (13:02)
[2018-01-09] MEDS ORDERED: PT OWN MED DRAWER 7, Y5N ONE (13:11)
[2018-01-09 13:59] VITALS: PULSE 90; TEMP 98.4
[2018-01-09] MEDS: D5-1/2NS+20 MEQ KCL - 20 MEQ/1,000 ML INFUS.BAG IV SCH (14:33)
[2018-01-09] MEDS: METHADONE HCL 40 MG DISPERSABLE TABLET PO SCH (16:10)
[2018-01-09] MEDS ORDERED: TOPIRAMATE 25 MG TABLET (FP) PO SCH (22:00)
== END 2018-01-09 15:42 | disposition home or self-care (01) | DRG 473 ==
LOC: JASUSAT 05:07 → J8W 18:00 → JASUSAT 18:01 → J8W 18:01
PROVIDERS: ADMIT Neurological Surgery; ATTEND Neurological Surgery
PROC: 0RG10A0 Fusion of Cervical Vertebral Joint with Interbody Fusion Device, Anterior Approach, Anterior Column, Open Approach (ICD-10-PCS; 2018-01-07)
PROC: 0RT30ZZ Resection of Cervical Vertebral Disc, Open Approach (ICD-10-PCS; principal; 2018-01-07 08:00)
DX: M50.122 Cervical disc disorder at C5-C6 level with radiculopathy (principal); M50.223 Other cervical disc displacement at C6-C7 level; M47.9 Spondylosis, unspecified; M47.812 Spondylosis without myelopathy or radiculopathy, cervical region
CPT/HCPCS: 36415; 70450-TC; 72050-TC-FY; 85025; 85610; 85730; 86850; 86900; 86901; 88304-TC; 94760; 97116-GP; 97161-GP

== ENCOUNTER 2018-03-09 05:32 | Day surgery (SDC) | payer OTHER ==
[2018-03-09] MEDS ORDERED: BUPIVACAINE HCL/PF 0.25% (2.5MG/ML) 10 ML VIAL ONE (07:17)
[2018-03-09] MEDS ORDERED: methylPREDNISolone ACET (DEPO) 80 MG/1 ML VIAL ONE (07:17)
[2018-03-09 07:18] VITALS: TEMP 98.4
[2018-03-09] MEDS ORDERED: MIDAZOLAM HCL 2 MG/2 ML SINGLE DOSE VIAL ONE ×2 (08:31)
[2018-03-09] MEDS ORDERED: BUPIVACAINE HCL/PF 0.25% (2.5MG/ML) 10 ML VIAL IJ ONE ×2 (08:40→08:43)
[2018-03-09] MEDS ORDERED: LIDOCAINE HCL 1%, 10 MG/ML (50 mL VIAL) IJ ONE (08:40)
[2018-03-09] MEDS ORDERED: methylPREDNISolone ACET (DEPO) 80 MG/1 ML VIAL IJ ONE ×2 (08:40→08:43)
--- NOTE | 2018-03-09 11:51 | OP ---
DATE OF OPERATION: 03/09/2018 PREOPERATIVE DIAGNOSIS: C3-4 disk disease with facet hypertrophy and radiculopathy. POSTOPERATIVE DIAGNOSIS: C3-4 disk disease with facet hypertrophy and radiculopathy. ATTENDING SURGEON: Shmuel Mcmanus MD PROCEDURE: 1. Right C3-4 epidural steroid injection. 2. Intraoperative fluoroscopy. ANESTHESIA: Local with IV sedation. ANESTHESIOLOGIST: Courtney Deras MD INDICATION: Patient is a 42-year-old male with prior C6-7 fusion. He is known to have C3-4 disease and develop suboccipital headache and right-sided upper cervical pain because of worsening symptoms referable to the upper cervical spine. He is here for his cervical epidural steroid injection on the right side C3-4. The risks of procedure include but were limited to, bleeding, infection, spinal headache, and neurological injury. The patient understands the indication for the procedure, procedure in detail, risks and benefits, and alternatives for treatment of his cervical spine condition and wishes to proceed. No guarantees were given for a favorable outcome. PROCEDURE IN DETAIL: After the patient was taken to the operating room, he was placed in prone position with a pillow under his chin. Arms were tucked down to sides. Anterior and posterior region was cleaned with alcohol and prepped with Betadine. Skin wheal was raised with 5 mL of 1% xylocaine. A 22-gauge spinal needle was inserted under AP and lateral fluoroscopic guidance from a right-sided approach to the C4-5 facet joint. The needle was then marked into the lateral recess. Loss of resistance technique was utilized. There was no CSF or blood backflow. Depo-Medrol 80 mg and 1 mL of 0.25% Marcaine was injected, and the needle was withdrawn, and sterile bandage was applied. The patient tolerated procedure well and was turned back to the supine position, moving bilateral upper and lower extremities as he did prior to the procedure. He did not complain of headache. SHMUEL MCMANUS M.D. [id number]
[2018-03-09 12:04] VITALS: BP 125/72; PULSE 96
== END 2018-03-09 11:15 | disposition home or self-care (01) ==
LOC: JASU-SURG 05:32
PROVIDERS: ATTEND Neurological Surgery
PROC: 3E0R33Z Introduction of Anti-inflammatory into Spinal Canal, Percutaneous Approach (ICD-10-PCS; 2018-03-09)
PROC: B01BZZZ Fluoroscopy of Spinal Cord (ICD-10-PCS; 2018-03-09)
PROC: 3E0R3BZ Introduction of Anesthetic Agent into Spinal Canal, Percutaneous Approach (ICD-10-PCS; principal; 2018-03-09 07:30)
DX: M50.11 Cervical disc disorder with radiculopathy, high cervical region (principal)
CPT/HCPCS: 76000-TC-FY

== ENCOUNTER 2019-03-01 04:58 | Day surgery (SDC) | payer OTHER ==
[~2019-03-01 04:58] MED LIST changes: -BUPIVACAINE HCL/PF 0.25% (2.5MG/ML) 10 ML VIAL IJ ONE; -LIDOCAINE HCL 1% PRESERVATIVE FREE - 30ML VIAL IJ ONE; -methylPREDNISolone ACET (DEPO) 80 MG/1 ML VIAL IJ ONE; +methylPREDNISolone ACET (DEPO) 80 MG/1 ML VIAL IM ONE
[2019-03-01] MEDS ORDERED: PROPOFOL 20 ML ONE (08:38)
[2019-03-01] MEDS ORDERED: MIDAZOLAM HCL 2 MG/2 ML SINGLE DOSE VIAL ONE (08:38)
[2019-03-01] MEDS ORDERED: methylPREDNISolone ACET (DEPO) 80 MG/1 ML VIAL ONE (08:47)
[2019-03-01] MEDS ORDERED: LIDOCAINE HCL 0.5%, 5 MG/ML (50mL SDVIAL) INF ONE (09:00)
[2019-03-01] MEDS ORDERED: BUPIVACAINE HCL/PF 0.5% (5 MG/ML) 30 ML VIAL IJ ONE ×2 (09:00→09:04)
[2019-03-01] MEDS ORDERED: methylPREDNISolone ACET (DEPO) 80 MG/1 ML VIAL IM ONE (09:04)
[2019-03-01 09:22] VITALS: TEMP 97.5
[2019-03-01 11:31] VITALS: BP 134/76; PULSE 93
--- NOTE | 2019-03-01 23:51 | OP ---
DATE OF OPERATION: 03/01/2019 PREOPERATIVE DIAGNOSIS: 1. C3-C4 facet disease with neck pain. 2. Cervical spondylosis. 3. Cervical radiculopathy. POSTOPERATIVE DIAGNOSIS: 1. C3-C4 facet disease with neck pain. 2. Cervical spondylosis. 3. Cervical radiculopathy. SURGEON: Shmuel Mcmanus M.D. PROCEDURE: 1. Right C3-C4 epidural steroid injection. 2. Intraoperative fluoroscopy. ANESTHESIA: Local with IV sedation. ANESTHESIOLOGIST: Shady Jeffery CRNA INDICATION: The patient is a 43-year-old male with history of C6-C7 fusion. He presents with upper cervical radiculopathy on the right side. He is also known to have C3-C4 disk bulging. He is here for the first epidural steroid injection of the year at C3-C4 on the right. Risks of procedure include but are not limited to bleeding, infection, spinal headache, and neurological injury. The patient understands indication for procedure in detail, risks, benefits, and alternatives treatment for cervical spine condition and wishes to proceed. No guarantee was given for a favorable outcome. PROCEDURE IN DETAIL: After the patient was taken to the operating room, he was placed in prone position with a pillow under his hips and chin. Neck was placed in slightly flexed position. Arms were tucked on the side. Posterior cervical region was cleaned with alcohol, prepared with Betadine. Skin wheal was raised over right C3-C4 face joint with 3 mL of 1% Xylocaine. A 20-gauge spinal needle was inserted under AP and lateral fluoroscopic guidance from the right sided approach to C3-C4 facet joint. Needle was then marked medially through a lateral recess. Loss of resistance technique was utilized. There was no CSF or blood backflow. Then 80 mg of Depo-Medrol and 1 mL of 0.25% Marcaine was injected. The needle was withdrawn. Sterile bandage was applied. The patient tolerated procedure well and was turned back into the spine position. Moving bilateral upper and lower extremities well. He is not complaining of headache, has no neurological deficits. SHMUEL MCMANUS M.D. LOI/[id number]
== END 2019-03-01 10:55 | disposition home or self-care (01) ==
LOC: JASU-SURG 04:58
PROVIDERS: ATTEND Neurological Surgery
PROC: 3E0R33Z Introduction of Anti-inflammatory into Spinal Canal, Percutaneous Approach (ICD-10-PCS; 2019-03-01)
PROC: 3E0R3BZ Introduction of Anesthetic Agent into Spinal Canal, Percutaneous Approach (ICD-10-PCS; principal; 2019-03-01 08:30)
DX: M47.22 Other spondylosis with radiculopathy, cervical region (principal); M50.11 Cervical disc disorder with radiculopathy, high cervical region
CPT/HCPCS: 76000-TC-FY

== ENCOUNTER 2019-04-19 09:01 | Inpatient (IN) | payer OTHER ==
--- NOTE | 2019-04-19 09:55 | PDOC ---
History of Present Illness - General Chief Complaint: Nausea/Vomiting Stated Complaint: LOWER BACK/ VOMITING Time Seen by Provider: 04/19/19 09:54 - History of Present Illness Initial Comments: 04/19/19 09:54 Mr. Crandall is a 44 yo male w/ pmh of IBS who presents for evaluation of 3 day history of L and R sided back pain (R>L) w/ pain on urination as well as fever, nausea, and vomiting. Patient describes pain as intermittent and crampy. Has never had symptoms like this before. Presents as pain is worse today. The patient denies chest pain, shortness of breath, headache and dizziness. Denies diarrhea and constipation. Past History - Past Medical History Allergies/Adverse Reactions: Allergies Allergy/AdvReac Type Severity Reaction Status Date / Time ciprofloxacin Allergy Severe Verified 03/09/18 07:17 levofloxacin [From Levaquin] Allergy Intermediate Verified 03/09/18 07:17 Home Medications: Ambulatory Orders NK [No Known Home Medication] 04/19/19 Anemia: No Asthma: No Cancer: No Cardiac Disorders: No CVA: No COPD: No CHF: No Dementia: No Diabetes: No GI Disorders: No Disorders: No HTN: No Hypercholesterolemia: No Liver Disease: No Seizures: No Thyroid Disease: No - Surgical History Abdominal Surgery: No Appendectomy: No Cardiac Surgery: No Cholecystectomy: No Lung Surgery: No Neurologic Surgery: Yes (CERVICAL FUSION) Orthopedic Surgery: Yes (ARTHROSCOPIC right sh SX 2003) - Psycho Social/Smoking Cessation Hx Smoking History: Current every day smoker Have you smoked in the past 12 months: Yes Number of Cigarettes Smoked Daily: 5 If you are a former smoker, when did you quit?: 07/17/17 Information on smoking cessation initiated: No 'Breaking Loose' booklet given: 03/02/18 Hx Alcohol Use: No Drug/Substance Use Hx: No Substance Use Type: None Hx Substance Use Treatment: Yes Review of Systems - Review of Systems Comments:: 04/19/19 09:54 GENERAL/CONSTITUTIONAL: +Fever/chills. No weakness. HEAD, EYES, EARS, NOSE AND THROAT: No change in vision. No ear pain or discharge. No sore throat. CARDIOVASCULAR: No chest pain or shortness of breath RESPIRATORY: No cough, wheezing, or hemoptysis. GASTROINTESTINAL: +N/V as described. No diarrhea or constipation. GENITOURINARY: +Dysuria x3 days. MUSCULOSKELETAL: +R back pain. No joint or muscle swelling or pain. SKIN: No rash NEUROLOGIC: No headache, vertigo, loss of consciousness, or change in strength/ sensation. ENDOCRINE: No increased thirst. No abnormal weight change HEMATOLOGIC/LYMPHATIC: No anemia, easy bleeding, or history of blood clots. ALLERGIC/IMMUNOLOGIC: No hives or skin allergy. *Physical Exam - Vital Signs Last Vital Signs Temp Pulse Resp BP Pulse Ox 97.9 F 77 16 130/99 98 04/19/19 09:13 04/19/19 09:13 04/19/19 09:13 04/19/19 09:13 04/19/19 09:13 - Physical Exam 04/19/19 09:54 GENERAL: Awake, alert, and fully oriented, in no acute distress HEAD: No signs of trauma, normocephalic, atraumatic EYES: PERRLA, EOMI, sclera anicteric, conjunctiva clear ENT: Auricles normal inspection, hearing grossly normal, nares patent, oropharynx clear without exudates. Moist mucosa NECK: Normal ROM, supple, no lymphadenopathy, JVD, or masses LUNGS: No distress, speaks full sentences, clear to auscultation bilaterally HEART: Regular rate and rhythm, normal S1 and S2, no murmurs, rubs or gallops, peripheral pulses normal and equal bilaterally. ABDOMEN: +R flank and R abdominal TTP. Soft, normoactive bowel sounds. No guarding, no rebound. No masses EXTREMITIES: Normal inspection, Normal range of motion, no edema. No clubbing or cyanosis. NEUROLOGICAL: Cranial nerves II through XII grossly intact. Normal speech, normal gait, no focal sensorimotor deficits SKIN: Warm, Dry, normal turgor, no rashes or lesions noted. ED Treatment Course - LABORATORY CBC & Chemistry Diagram: 04/19/19 10:09 04/19/19 10:09 Medical Decision Making - Medical Decision Making 04/19/19 11:52 Mr. Crandall is a 44 yo male w/ pmh as described who presents for evaluation of symptoms concerning for nephrolithiasis vs. MSK vs. bladder process. Patient evaluated w/ UA as well as labs as below and CT spiral for r/o kidney stone. Patient CT negative for nephrolithiasis; positive only for thickened bladder wall. Patient noted to have grossly elevated Cr as below w/out known cause. Bladder and renal US pending. Discussed patient with PCP who will admit for further evaluation. Upon repeat interview, patient also endorses difficulty with urine stream for the past several months. Laboratory Results - last 24 hr 04/19/19 04/19/19 04/19/19 10:05 10:09 10:09 WBC RBC Hgb Hct MCV MCH MCHC RDW Plt Count MPV Absolute Neuts (auto) Neutrophils % Lymphocytes % Monocytes % Eosinophils % Basophils % Nucleated RBC % PT with INR 11.30 INR 0.96 PTT (Actin FS) 33.6 Sodium 134 L Potassium 4.4 Chloride 102 Carbon Dioxide 24 Anion Gap 9 BUN 34.4 H Creatinine 4.8 H Est GFR (CKD-EPI)AfAm 15.63 Est GFR (CKD-EPI)NonAf 13.49 Random Glucose 96 Calcium 8.9 Total Bilirubin 1.2 H AST 25 ALT 16 Alkaline Phosphatase 96 Total Protein 7.3 Albumin 4.0 Urine Color Yellow Urine Appearance Clear Urine pH 5.0 Ur Specific [place] 1.010 Urine Protein 1+ H Urine Glucose (UA) Negative Urine Ketones Negative Urine Blood Negative Urine Nitrite Negative Urine Bilirubin Negative Urine Urobilinogen 0.2 Ur Leukocyte Esterase Trace Urine WBC (Auto) 4 Urine RBC (Auto) 2 Urine Casts (Auto) 1 U Epithel Cells (Auto) 0.8 Urine Bacteria (Auto) 4.6 04/19/19 10:09 WBC 10.8 H RBC 4.58 Hgb 15.2 Hct 43.1 MCV 94.2 MCH 33.3 MCHC 35.4 RDW 13.3 Plt Count 193 MPV 9.8 Absolute Neuts (auto) 8.7 H Neutrophils % 80.5 D Lymphocytes % 10.2 D Monocytes % 8.5 Eosinophils % 0.3 Basophils % 0.5 Nucleated RBC % 0 PT with INR INR PTT (Actin FS) Sodium Potassium Chloride Carbon Dioxide Anion Gap BUN Creatinine Est GFR (CKD-EPI)AfAm Est GFR (CKD-EPI)NonAf Random Glucose Calcium Total Bilirubin AST ALT Alkaline Phosphatase Total Protein Albumin Urine Color Urine Appearance Urine pH Ur Specific [place] Urine Protein Urine Glucose (UA) Urine Ketones Urine Blood Urine Nitrite Urine Bilirubin Urine Urobilinogen Ur Leukocyte Esterase Urine WBC (Auto) Urine RBC (Auto) Urine Casts (Auto) U Epithel Cells (Auto) Urine Bacteria (Auto) Discharge - Discharge Information Problems reviewed: Yes Clinical Impression/Diagnosis: Elevated serum creatinine Back pain Qualifiers: Back pain location: back pain in unspecified location Chronicity: unspecified Back pain laterality: unspecified Qualified Code(s): M54.9 - Dorsalgia, unspecified Condition: Stable - Admission Yes - Follow up/Referral Referrals: Vipul Calderon MD [Primary Care Provider] - - Patient Discharge Instructions - Post Discharge Activity
[2019-04-19] MEDS ORDERED: ONDANSETRON 4 MG/2 ML VIAL IVPUSH ONE (10:18)
[2019-04-19] MEDS ORDERED: KETOROLAC TROMETHAMINE 15 MG/ML VIAL IVPUSH ONE (10:18)
[2019-04-19] MEDS ORDERED: SODIUM CHLORIDE 1,000 ML IV STA (10:22)
[2019-04-19] MEDS ORDERED: KETOROLAC TROMETHAMINE 30 MG/1 ML VIAL IM ONE (10:22)
[2019-04-19] MEDS ORDERED: ONDANSETRON 4 MG/2 ML VIAL ONE ×2 (10:23→16:58)
[2019-04-19] MEDS ORDERED: KETOROLAC TROMETHAMINE 15 MG/ML VIAL ONE (10:23)
[2019-04-19 10:25] LABS: EPI CELLS 0.8 /HPF (0-5/HPF); HYALINE CASTS 1 /lpf (0-8); URINE APPEARANCE CLEAR; URINE BACTERIA 4.6 /hpf (NEGATIVE); URINE BILIRUBIN NEGATIVE (NEGATIVE); URINE COLOR YELLOW; URINE GLUCOSE (UA) NEGATIVE (NEGATIVE); URINE KETONE NEGATIVE (NEGATIVE); URINE LEUK ESTERASE TRACE (NEGATIVE); URINE NITRITE NEGATIVE (NEGATIVE); URINE PROTEIN 1+ (NEGATIVE); URINE RBC 2 /hpf (0-4); URINE UROBILINOGEN 0.2 mg/dL (0.2-1.0); URINE WBC 4 /hpf (0-5)
--- NOTE | 2019-04-19 10:33 | PDOC ---
Attending Attestation - Resident Resident Name: Shabbir Lai - ED Attending Attestation I have performed the following: I have examined & evaluated the patient, The case was reviewed & discussed with the resident, I agree w/resident's findings & plan, Exceptions are as noted - HPI HPI: 04/19/19 10:32 44y M hx of hypertension, migraines, hypercholesteroemia, gastritis, ibs, cervical radiculopathy presents with complaint of back pain. Patient states that he is been having originally bilateral back pain but now is more localized to the right side since the weekend. Patient also notes that he has been having several months of diminished urine flow, states he sometimes however has little bit of urgency but does not have a normal flow of urine. Patient denies any nausea, vomiting, fever, chills currently but endorses a history of subjective fever several days ago. patient notes that he has seen urology in the past and had some kind of procedure approximately [address] Calderon - Physicial Exam PE: 04/19/19 11:54 GENERAL: The patient is awake, alert, and fully oriented, Nontoxic - in no acute distress. HEAD: Normocephalic, atraumatic. EYES: extraocular movements intact, sclera anicteric, conjunctiva clear. ENT: Normal voice, Moist mucous membranes. NECK: Normal range of motion, supple LUNGS: Breath sounds equal, clear to auscultation bilaterally. No wheezes, no rhonchi, no rales. HEART: Regular rate and rhythm, normal S1 and S2 without murmur, rub or gallop. ABDOMEN: Soft, nontender, No guarding, no rebound. R CVA tenderness EXTREMITIES: Normal range of motion, no edema. NEUROLOGICAL: No facial assymetry, Normal speech, PSYCH: Normal mood, normal affect. SKIN: Warm, Dry, normal turgor, - Medical Decision Making 04/19/19 11:55 Differential for the patient's symptoms include kidney stones, UTI, muscular pain Patient is UA reveals no signs of hematuria his blood work does reveal creatinine of 4 which is new. The patient's CAT scan reveals no signs of kidney stones or signs of obstructive uropathy. Will obtain a formal bladder and kidney ultrasound anticipate admission for further management and evaluation of his renal failure. We will give the patient some fluids through IV
[2019-04-19 10:47] LABS: BASO % 0.5 % (0-2.0); EOS % 0.3 % (0-4.5); HEMATOCRIT 43.1 % (35.4-49); HEMOGLOBIN 15.2 GM/dL (11.7-16.9); LYMPH % 10.2 % (8-40); MCH 33.3 pg (25.7-33.7); MCHC 35.4 g/dl (32.0-35.9); MEAN CELL VOLUME 94.2 fl (80-96); MEAN PLT VOLUME 9.8 fl (7.5-11.1); MONO % 8.5 % (3.8-10.2); NEUT % 80.5 % (42.8-82.8); PLATELET COUNT 193 K/MM3 (134-434); RBC 4.58 M/mm3 (4.00-5.60); RDW 13.3 % (11.9-15.9); WHITE BLOOD COUNT 10.8 K/mm3 (4.0-10.0)
[2019-04-19 11:04] LABS: BILIRUBIN,TOTAL 1.2 mg/dL (0.2-1); BLOOD UREA NITROGEN 34.4 mg/dL (7-18); CALCIUM 8.9 mg/dL (8.5-10.1); CREATININE 4.8 mg/dL (0.55-1.3); POTASSIUM 4.4 mmol/L (3.5-5.1); TOT PROT 7.3 g/dl (6.4-8.2)
[2019-04-19 11:08] LABS: INR 0.96 (0.83-1.09); PROTHROMBIN TIME (PATIENT) 11.3 SEC (9.7-13.0)
[2019-04-19 11:10] LABS: ACTIVATED PTT 33.6 SECONDS (25.2-36.5)
[2019-04-19] MEDS ORDERED: morphine CARPU-JECT 4 MG/1 ML DISP.SYRIN IVPUSH ONE (12:36)
[2019-04-19] MEDS ORDERED: morphine SULFATE 4 MG/ML VIAL ONE (12:41)
[2019-04-19] MEDS ORDERED: SODIUM CHLORIDE 1,000 ML IV SCH (14:15)
[2019-04-19] MEDS: MORPHINE SULFATE 2 MG/ML VIAL IVPUSH PRN (15:00)
[2019-04-19] MEDS ORDERED: MORPHINE SULFATE 2 MG/ML VIAL ONE (15:23)
--- NOTE | 2019-04-19 16:37 | CONSULT ---
Consult Consult Specialty:: Nephrology Reason for Consultation:: SHONDA - History of Present Illness Chief Complaint: flank pain History of Present Illness: Pt is a 44 year old gentleman with pmhx of neck surgery who presents to the ER with dysuria and flank pain. He feels that the pain is in his bilateral flanks but right more than left. He says it began a few days ago when he tried to urinate and felt pain. He also had a few episodes of vomiting and has not had much appetite. He denies fevers or chills. He is awake and alert. He denies hematuria. He denies nsaid use. 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 Gastrointestinal: Yes: Irritable Bowel Disease Infectious Disease: Yes: Other (Sinusitis) Additional Medical History: On Methadone (tappering dose) - Past Surgical History Additional Surgical History: neck surgery on herniated disks - Alcohol/Substance Use Hx Alcohol Use: No - Smoking History Smoking history: Current every day smoker Have you smoked in the past 12 months: Yes Aproximately how many cigarettes per day: 5 If you are a former smoker, when did you quit?: 07/17/17 Home Medications - Allergies Allergies/Adverse Reactions: Allergies Allergy/AdvReac Type Severity Reaction Status Date / Time ciprofloxacin Allergy Severe Verified 03/09/18 07:17 levofloxacin [From Levaquin] Allergy Intermediate Verified 03/09/18 07:17 - Home Medications Home Medications: Ambulatory Orders NK [No Known Home Medication] 04/19/19 Family Medical History Family History: Denies Review of Systems - Review of Systems Constitutional: reports: Malaise Eyes: reports: No Symptoms HENT: reports: No Symptoms Neck: reports: No Symptoms Cardiovascular: reports: No Symptoms Respiratory: reports: No Symptoms Gastrointestinal: reports: Nausea Musculoskeletal: reports: No Symptoms Integumentary: reports: No Symptoms Neurological: reports: No Symptoms Endocrine: reports: No Symptoms Hematology/Lymphatic: reports: No Symptoms Psychiatric: reports: No Symptoms Physical Exam Vital Signs: Vital Signs Temperature 97.9 F 04/19/19 09:13 Pulse Rate 77 04/19/19 09:13 Respiratory Rate 16 04/19/19 09:13 Blood Pressure 130/99 04/19/19 09:13 O2 Sat by Pulse Oximetry (%) 98 04/19/19 09:13 Constitutional: Yes: Calm Eyes: Yes: Conjunctiva Clear HENT: Yes: Atraumatic Neck: Yes: Supple Cardiovascular: Yes: S1, S2 Respiratory: Yes: CTA Bilaterally Gastrointestinal: Yes: Normal Bowel Sounds, Soft Musculoskeletal: Yes: WNL Extremities: Yes: WNL Edema: No Integumentary: Yes: WNL Neurological: Yes: Oriented Psychiatric: Yes: Oriented Labs: CBC, BMP 04/19/19 10:09 04/19/19 10:09 Imaging - Results Cat Scan: Report Reviewed Ultrasound: Report Reviewed Problem List - Problems (1) Back pain Code(s): M54.9 - DORSALGIA, UNSPECIFIED Qualifiers: Back pain location: back pain in unspecified location Chronicity: unspecified Back pain laterality: unspecified Qualified Code(s): M54.9 - Dorsalgia, unspecified (2) Elevated serum creatinine Code(s): R79.89 - OTHER SPECIFIED ABNORMAL FINDINGS OF BLOOD CHEMISTRY Assessment/Plan Current Medications Generic Name Dose Route Start Last Admin Trade Name Freq PRN Reason Stop Dose Admin Sodium Chloride 1,000 mls @ 75 mls/hr 04/19/19 14:15 04/19/19 15:43 Normal Saline - IV 75 mls/hr ASDIR CARLOS Administration Morphine Sulfate 2 mg 04/19/19 14:01 04/19/19 15:00 Morphine Sulfate IVPUSH 2 mg Q3H PRN Administration PAIN LEVEL 6-10 Ondansetron HCl 4 mg 04/19/19 14:02 Zofran Injection IVPUSH Q8H PRN NAUSEA Laboratory Tests 02/19/17 12/29/17 04/19/19 10:28 11:04 10:05 Sodium Potassium BUN Creatinine 1.0 D 0.9 Urine Protein 1+ H Ur Leukocyte Esterase Trace 04/19/19 10:09 Sodium 134 L Potassium 4.4 BUN 34.4 H Creatinine 4.8 H Urine Protein Ur Leukocyte Esterase Impression 1. SHONDA 2. r/o UTI in the setting of dysuria and elevated wbc 3. chronic neck pain 4. hx of herpes - not currently on valtrex Plan - cont with fluids and monitor response - send urine cultures - check urine lytes and assisted living executive director to calc fena - repeat labs in am and if no improvement he will need more extensive workup - please avoid nsaids
[2019-04-19] MEDS: ONDANSETRON 4 MG/2 ML VIAL IVPUSH PRN (17:33)
--- NOTE | 2019-04-19 18:13 | HP ---
Admitting History and Physical - Primary Care Physician PCP: Vipul Calderon - Admission Chief Complaint: back pain History of Present Illness: Pt came to ER c/o back pain, right more that left, for 2 days, associated with nausea and vomiting. Pt w/o fever, chills, no blood in the urine. Pt w/o PMHX/o kidney stones, kidney disease. Pt is denying NSAIDs use. 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: Yes: Migraine Gastrointestinal: Yes: Irritable Bowel Disease Infectious Disease: Yes: Other (Sinusitis) Musculoskeletal: Yes: Other (neck pain) - Past Surgical History Additional Past Surgical History: Cervical spine surgery - Smoking History Smoking history: Current every day smoker Have you smoked in the past 12 months: Yes Aproximately how many cigarettes per day: 5 If you are a former smoker, when did you quit?: 07/17/17 - Alcohol/Substance Use Hx Alcohol Use: No Home Medications - Allergies Allergies/Adverse Reactions: Allergies Allergy/AdvReac Type Severity Reaction Status Date / Time ciprofloxacin Allergy Severe Verified 03/09/18 07:17 levofloxacin [From Levaquin] Allergy Intermediate Verified 03/09/18 07:17 - Home Medications Home Medications: Ambulatory Orders NK [No Known Home Medication] 04/19/19 Home Medications (free text): gabapentin 300 mg Q8H Review of Systems - Review of Systems Constitutional: denies: Chills, Fever Eyes: denies: Blurred Vision, Double Vision HENT: denies: Difficult Swallowing, Ear Discharge, Ear Pain, Nasal Congestion, Throat Pain Neck: reports: Pain on Movement (chronic). denies: Stiffness Cardiovascular: denies: Chest Pain, Edema, Palpitations Respiratory: denies: Cough, SOB, SOB on Exertion, Wheezing Gastrointestinal: reports: Abdominal Pain (epigastric). denies: Diarrhea Genitourinary: denies: Burning, Discharge, Dysuria, Hematuria Musculoskeletal: reports: Back Pain. denies: Joint Pain, Joint Swelling, Muscle Pain Integumentary: denies: Bruising, Rash Neurological: denies: Change in LOC, Numbness, Tremors Endocrine: denies: Excessive Sweating, Intolerance to Cold Hematology/Lymphatic: denies: Easily Bruised, Excessive Bleeding Psychiatric: denies: Anxiety, Depression Physical Examination Vital Signs: Vital Signs Temperature 97.9 F 04/19/19 09:13 Pulse Rate 77 04/19/19 09:13 Respiratory Rate 16 04/19/19 09:13 Blood Pressure 130/99 04/19/19 09:13 O2 Sat by Pulse Oximetry (%) 98 04/19/19 09:13 Constitutional: Yes: No Distress, Calm, Pallor, Other Eyes: Yes: Conjunctiva Clear, EOM Intact, PERRL. No: Sclera Icterus HENT: No: Epistaxis, Pharyngeal Erythema, Rhinnorhea Neck: Yes: Trachea Midline. No: Lymphadenopathy, Rigid Cardiovascular: Yes: Regular Rate and Rhythm, S1, S2 Respiratory: Yes: Regular, CTA Bilaterally. No: Rales Gastrointestinal: Yes: Normal Bowel Sounds, Soft, Tenderness, Epigastrium. No: Palpable Mass, Tenderness, Rebound ...Rectal Exam: Yes: Deferred Renal/: Yes: CVA Tenderness - Right. No: CVA Tenderness - Left Musculoskeletal: No: Back Pain, Joint Stiffness, Joint Swelling Extremities: No: Cold, Cool Edema: No Neurological: Yes: Alert, Oriented, Other (motor and sensory examination is symmetric in UE/ LE? face.) Psychiatric: Yes: Alert, Oriented Labs: CBC, BMP 04/19/19 10:09 04/19/19 10:09 Imaging - Results Cat Scan: Report Reviewed Problem List - Problems (1) SHONDA (acute kidney injury) Code(s): N17.9 - ACUTE KIDNEY FAILURE, UNSPECIFIED (2) Nausea & vomiting Code(s): R11.2 - NAUSEA WITH VOMITING, UNSPECIFIED (3) Back pain Code(s): M54.9 - DORSALGIA, UNSPECIFIED Qualifiers: Back pain location: back pain in unspecified location Chronicity: unspecified Back pain laterality: unspecified Qualified Code(s): M54.9 - Dorsalgia, unspecified (4) Leukocytosis Code(s): D72.829 - ELEVATED WHITE BLOOD CELL COUNT, UNSPECIFIED (5) IBS (irritable bowel syndrome) Code(s): K58.9 - IRRITABLE BOWEL SYNDROME WITHOUT DIARRHEA Assessment/Plan IVF Pain control (no NSAIDs) Zofran PRN Renal consult To f/u UCX GI prophylaxis AM labs
[2019-04-19] MEDS: GABAPENTIN 300 MG CAPSULE PO SCH (22:14)
[2019-04-19] MEDS ORDERED: ACETAMINOPHEN 1000 MG/100 ML VIAL (NON FORMULARY) IVPB ONE (22:30)
[2019-04-19] MEDS: SODIUM CHLORIDE 1,000 ML IV SCH (22:39)
[2019-04-19 23:23] LABS: EPI CELLS 1.9 /HPF (0-5/HPF); HYALINE CASTS 4 /lpf (0-8); URINE APPEARANCE CLEAR; URINE BACTERIA 2.9 /hpf (NEGATIVE); URINE BILIRUBIN NEGATIVE (NEGATIVE); URINE COLOR YELLOW; URINE GLUCOSE (UA) NEGATIVE (NEGATIVE); URINE KETONE TRACE (NEGATIVE); URINE LEUK ESTERASE TRACE (NEGATIVE); URINE NITRITE NEGATIVE (NEGATIVE); URINE PROTEIN 1+ (NEGATIVE); URINE RBC 2 /hpf (0-4); URINE UROBILINOGEN 0.2 mg/dL (0.2-1.0); URINE WBC 10 /hpf (0-5)
[2019-04-19] MEDS ORDERED: PANTOPRAZOLE SODIUM 40 MG VIAL IVPUSH ONE (23:40)
[2019-04-20] MEDS: ONDANSETRON 4 MG/2 ML VIAL IVPUSH PRN (01:55)
[2019-04-20] MEDS: GABAPENTIN 300 MG CAPSULE PO SCH ×3 (05:21→21:27)
[2019-04-20] MEDS: ACETAMINOPHEN 325 MG TABLET (FP) PO PRN ×4 (05:21→23:52)
[2019-04-20 08:16] VITALS: BMI 24.5
[2019-04-20 08:19] LABS: ALBUMIN 2.9 g/dl (3.4-5.0); BILIRUBIN,TOTAL 0.6 mg/dL (0.2-1); BLOOD UREA NITROGEN 33.8 mg/dL (7-18); CALCIUM 7.6 mg/dL (8.5-10.1); CREATININE 4.5 mg/dL (0.55-1.3); POTASSIUM 3.9 mmol/L (3.5-5.1); TOT PROT 5.2 g/dl (6.4-8.2)
[2019-04-20] MEDS: MORPHINE SULFATE 2 MG/ML VIAL IVPUSH PRN (09:48)
[2019-04-20] MEDS: SODIUM CHLORIDE 1,000 ML IV SCH ×3 (09:49→23:49)
--- NOTE | 2019-04-20 09:55 | PN ---
Progress Note, Physician History of Present Illness: Pt with right side flank pain, nausea. Pt w/o fever,chills, SOB, CP. - Current Medication List Current Medications: Active Medications Acetaminophen (Tylenol -) 650 mg PO Q6H PRN PRN Reason: PAIN LEVEL 1-5 Last Admin: 04/20/19 05:21 Dose: 650 mg Gabapentin (Neurontin -) 300 mg PO TID [facility] Last Admin: 04/20/19 05:21 Dose: 300 mg Sodium Chloride (Normal Saline -) 1,000 mls @ 100 mls/hr IV ASDIR [facility] Last Admin: 04/20/19 09:49 Dose: 100 mls/hr Morphine Sulfate (Morphine Sulfate) 2 mg IVPUSH Q3H PRN PRN Reason: PAIN LEVEL 6-10 Last Admin: 04/20/19 09:48 Dose: 2 mg Ondansetron HCl (Zofran Injection) 4 mg IVPUSH Q8H PRN PRN Reason: NAUSEA Last Admin: 04/20/19 01:55 Dose: 4 mg - Objective Vital Signs: Vital Signs Temperature 98.6 F 04/20/19 06:13 Pulse Rate 62 04/20/19 06:13 Respiratory Rate 20 04/20/19 06:13 Blood Pressure 125/72 04/20/19 06:13 O2 Sat by Pulse Oximetry (%) 100 04/20/19 02:23 Constitutional: Yes: No Distress, Calm Cardiovascular: Yes: Regular Rate and Rhythm, S1, S2 Respiratory: Yes: Regular, CTA Bilaterally. No: Rales Gastrointestinal: Yes: Normal Bowel Sounds, Soft, Other (+ right CVAT). No: Tenderness Edema: No Neurological: Yes: Alert, Oriented Labs: CBC, BMP 04/19/19 10:09 04/20/19 06:45 INR, PTT INR 0.96 (0.83-1.09) 04/19/19 10:09 Problem List - Problems (1) SHONDA (acute kidney injury) Code(s): N17.9 - ACUTE KIDNEY FAILURE, UNSPECIFIED (2) Nausea & vomiting Code(s): R11.2 - NAUSEA WITH VOMITING, UNSPECIFIED (3) Back pain Code(s): M54.9 - DORSALGIA, UNSPECIFIED Qualifiers: Back pain location: back pain in unspecified location Chronicity: unspecified Back pain laterality: unspecified Qualified Code(s): M54.9 - Dorsalgia, unspecified (4) Leukocytosis Code(s): D72.829 - ELEVATED WHITE BLOOD CELL COUNT, UNSPECIFIED (5) IBS (irritable bowel syndrome) Code(s): K58.9 - IRRITABLE BOWEL SYNDROME WITHOUT DIARRHEA Assessment/Plan Unclear SHONDA cause. CBC still pending; to f/u. IVF Pain control (no NSAIDs) Zofran PRN Renal consult is appreciated To f/u UCX GI prophylaxis AM labs
[2019-04-20 10:20] LABS: HEMATOCRIT 35.1 % (35.4-49); HEMOGLOBIN 12.3 GM/dL (11.7-16.9); MCH 33.5 pg (25.7-33.7); MEAN CELL VOLUME 95.7 fl (80-96); MEAN PLT VOLUME 9.9 fl (7.5-11.1); PLATELET COUNT 139 K/MM3 (134-434); RBC 3.67 M/mm3 (4.00-5.60); WHITE BLOOD COUNT 8.6 K/mm3 (4.0-10.0)
--- NOTE | 2019-04-20 12:25 | CONSULT ---
Consult - text type - Consultation Consultation Note: Renal follow up for SHONDA Seen and examined at the bedside awake and alert continues to have right sided lower back pain no dysuria, frequency or foul smelling urine no N/V/D no hematuria no sob, cp, fever or chills denies any skin rash denies any NSIAD use at home, did get Toroadol x 1 yesterday in the hospital making urine on IVF Vital Signs Temperature 98.6 F 04/20/19 06:13 Pulse Rate 62 04/20/19 06:13 Respiratory Rate 20 04/20/19 06:13 Blood Pressure 125/72 04/20/19 06:13 O2 Sat by Pulse Oximetry (%) 100 04/20/19 02:23 Intake & Output 04/17/19 04/18/19 04/19/19 04/20/19 23:59 23:59 23:59 23:59 Intake Total 200 800 Output Total 100 Balance 100 800 Weight 68.946 kg NAD awake and alert neck supple, no JVD RRR, no M/R CTA soft NT/ND no CVA tenderness + tenderness on right lower back no LE edema no skin rash noted CBC, BMP 04/20/19 06:45 04/20/19 06:45 Current Medications Acetaminophen (Tylenol -) 650 mg PO Q6H PRN PRN Reason: PAIN LEVEL 1-5 Last Admin: 04/20/19 05:21 Dose: 650 mg Gabapentin (Neurontin -) 300 mg PO TID [facility] Last Admin: 04/20/19 05:21 Dose: 300 mg Sodium Chloride (Normal Saline -) 1,000 mls @ 150 mls/hr IV ASDIR [facility] Morphine Sulfate (Morphine Sulfate) 2 mg IVPUSH Q3H PRN PRN Reason: PAIN LEVEL 6-10 Last Admin: 04/20/19 09:48 Dose: 2 mg Ondansetron HCl (Zofran Injection) 4 mg IVPUSH Q8H PRN PRN Reason: NAUSEA Last Admin: 04/20/19 01:55 Dose: 4 mg 44 year old gentleman with history of cervical radiculopathy who presented with lower back pain and found to have SHONDA. 1. SHONDA of unclear etiology 2. Lower back pain 3. Hx of radiculopathy Urine studies show FeNa of 0.96% indicating preserved tubular function. UA shows 1+ protein but no blood making nephritic/nephrotic syndrome less likely. Check Urine Eosinophils and urine protein to creatinine ratio. Imaging studies show no obstruction or evidence of pylonephritis. Urine cultures negative Increase NS at 150cc per hour Check LADONNA, ANCA, RPR, CH50 Avoid NSIAD use given low eGFR no acute indication for dialysis at this time Thank you Aquiles Valdes DO
[2019-04-20 15:10] LABS: COCAINE, UR NEGATIVE ng/ml (CUTOFF=300); METHADONE, UR NEGATIVE ng/ml (CUTOFF=300); PHENCYCLIDINE,URINE NEGATIVE ng/ml (CUTOFF=25); URINE AMPHETAMINES NEGATIVE ng/ml (CUTOFF=500); URINE BARBITURATES NEGATIVE ng/ml (CUTOFF=200); URINE BENZODIAZEPINES NEGATIVE ng/ml (CUTOFF=200)
[2019-04-20 15:14] LABS: OPIATES, URI POSITIVE ng/ml (CUTOFF=300)
[2019-04-21] MEDS: ACETAMINOPHEN 325 MG TABLET (FP) PO PRN (05:11)
[2019-04-21] MEDS: GABAPENTIN 300 MG CAPSULE PO SCH ×3 (05:11→22:26)
[2019-04-21] MEDS: ONDANSETRON 4 MG/2 ML VIAL IVPUSH PRN (05:16)
[2019-04-21] MEDS: SODIUM CHLORIDE 1,000 ML IV SCH (06:36)
[2019-04-21 07:45] LABS: HEMATOCRIT 37.4 % (35.4-49); MCH 33.3 pg (25.7-33.7); MCHC 34.8 g/dl (32.0-35.9); MEAN CELL VOLUME 95.6 fl (80-96); MEAN PLT VOLUME 9.7 fl (7.5-11.1); PLATELET COUNT 159 K/MM3 (134-434); RBC 3.91 M/mm3 (4.00-5.60); RDW 13.1 % (11.9-15.9); WHITE BLOOD COUNT 8.5 K/mm3 (4.0-10.0)
[2019-04-21 08:27] LABS: BILIRUBIN,TOTAL 0.7 mg/dL (0.2-1); BLOOD UREA NITROGEN 31.3 mg/dL (7-18); CALCIUM 7.3 mg/dL (8.5-10.1); CREATININE 4.5 mg/dL (0.55-1.3); POTASSIUM 4.3 mmol/L (3.5-5.1); TOT PROT 5.5 g/dl (6.4-8.2)
--- NOTE | 2019-04-21 09:51 | PN ---
Progress Note, Physician History of Present Illness: Pt still with right side flank pain. Pt also nausea, less than yesterday. Pt w/o fever, chills, cg, SOB, CP. - Current Medication List Current Medications: Active Medications Acetaminophen (Tylenol -) 650 mg PO Q6H PRN PRN Reason: PAIN LEVEL 1-5 Last Admin: 04/21/19 05:11 Dose: 650 mg Gabapentin (Neurontin -) 300 mg PO TID [facility] Last Admin: 04/21/19 05:11 Dose: 300 mg Sodium Chloride (Normal Saline -) 1,000 mls @ 150 mls/hr IV ASDIR [facility] Last Admin: 04/21/19 06:36 Dose: 150 mls/hr Morphine Sulfate (Morphine Sulfate) 2 mg IVPUSH Q3H PRN PRN Reason: PAIN LEVEL 6-10 Last Admin: 04/20/19 09:48 Dose: 2 mg Ondansetron HCl (Zofran Injection) 4 mg IVPUSH Q8H PRN PRN Reason: NAUSEA Last Admin: 04/21/19 05:16 Dose: 4 mg - Objective Vital Signs: Vital Signs Temperature 98.7 F 04/21/19 06:17 Pulse Rate 62 04/21/19 06:17 Respiratory Rate 20 04/21/19 06:17 Blood Pressure 170/84 04/21/19 06:17 O2 Sat by Pulse Oximetry (%) 100 04/20/19 21:00 Constitutional: Yes: No Distress, Calm Cardiovascular: Yes: Regular Rate and Rhythm, S1, S2 Respiratory: Yes: Regular, CTA Bilaterally. No: Rales Gastrointestinal: Yes: Normal Bowel Sounds, Soft, Tenderness Edema: No Neurological: Yes: Alert, Oriented Labs: CBC, BMP 04/21/19 07:08 04/21/19 07:08 INR, PTT INR 0.96 (0.83-1.09) 04/19/19 10:09 Problem List - Problems (1) SHONDA (acute kidney injury) Code(s): N17.9 - ACUTE KIDNEY FAILURE, UNSPECIFIED (2) Nausea & vomiting Code(s): R11.2 - NAUSEA WITH VOMITING, UNSPECIFIED (3) Back pain Code(s): M54.9 - DORSALGIA, UNSPECIFIED Qualifiers: Back pain location: back pain in unspecified location Chronicity: unspecified Back pain laterality: unspecified Qualified Code(s): M54.9 - Dorsalgia, unspecified (4) Leukocytosis Code(s): D72.829 - ELEVATED WHITE BLOOD CELL COUNT, UNSPECIFIED (5) IBS (irritable bowel syndrome) Code(s): K58.9 - IRRITABLE BOWEL SYNDROME WITHOUT DIARRHEA Assessment/Plan Unclear SHONDA cause; pt might need kidney biopsy. 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 Pain control (no NSAIDs); tylenol doesn't control the pain; to change it to Tylenol # 3. Zofran PRN Renal consult is appreciated UCX is negative GI prophylaxis AM labs
[2019-04-21] MEDS ORDERED: amLODIPine BESYLATE 2.5 MG TABLET (FP) PO ONE (12:45)
[2019-04-21] MEDS: ACETAMINOPHEN WITH CODEINE 300MG/30MG TABLET PO PRN ×2 (13:33→23:22)
[2019-04-21] MEDS: DOCUSATE SODIUM 100 MG CAPSULE (FP) PO SCH ×2 (13:33→22:27)
[2019-04-21] MEDS ORDERED: DOCUSATE SODIUM 100 MG CAPSULE (FP) PO SCH (14:00)
--- NOTE | 2019-04-21 17:44 | PN ---
Progress Note (short form) - Note Progress Note: Renal follow up for SHONDA Seen and examined at the bedside awake and alert continue to have back pain, reports radiation down the spine no dysuria or frequency no leg swelling making urine no chest pain, sob, abd pain, N/V/D, confusion, lethargy or weakness Vital Signs Temperature 99.1 F 04/21/19 14:00 Pulse Rate 62 04/21/19 14:00 Respiratory Rate 18 04/21/19 14:00 Blood Pressure 157/93 04/21/19 14:00 O2 Sat by Pulse Oximetry (%) 100 04/20/19 21:00 Intake & Output 04/18/19 04/19/19 04/20/19 04/21/19 23:59 23:59 23:59 23:59 Intake Total 924 394 3987 Output Total 100 200 Balance 263 005 5945 Weight 68.946 kg NAD awake and alert neck supple, no JVD RRR, no M/R CTA soft NT/ND no CVA tenderness no LE edema no skin rash noted CBC, BMP 04/21/19 07:08 04/21/19 07:08 Current Medications Acetaminophen/Codeine Phosphate (Tylenol # 3 -) 2 tab PO Q6H PRN PRN Reason: PAIN LEVEL 1-5 Last Admin: 04/21/19 13:33 Dose: 2 tab Docusate Sodium (Colace -) 100 mg PO TID [facility] Last Admin: 04/21/19 13:33 Dose: 100 mg Gabapentin (Neurontin -) 300 mg PO TID [facility] Last Admin: 04/21/19 13:33 Dose: 300 mg Morphine Sulfate (Morphine Sulfate) 2 mg IVPUSH Q3H PRN PRN Reason: PAIN LEVEL 6-10 Last Admin: 04/20/19 09:48 Dose: 2 mg Ondansetron HCl (Zofran Injection) 4 mg IVPUSH Q8H PRN PRN Reason: NAUSEA Last Admin: 04/21/19 05:16 Dose: 4 mg 44 year old gentleman with history of cervical radiculopathy who presented with lower back pain and found to have SHONDA. 1. SHONDA of unclear etiology 2. Lower back pain 3. Hx of radiculopathy Renal function without any significant improvement despite aggressive IV fluid hydration UPCR is 0.3, which is microabluminuria range and not consistent with GN UA w/o active sediment Serologic studies collected, results pending He would benefit from a renal biopsy however given exposure to torodol on Friday the earliest it can be done is on the Friday coming up. If renal function is stable and pain is improved it would be reasonable for him to be discharged and have biopsy as an outpatient. Imaging studies show no obstruction or evidence of pylonephritis. Urine cultures negative D/C IVF Avoid NSIAD use given low eGFR no acute indication for dialysis at this time discussed with PMD Thank you Aquiles Valdes DO
[2019-04-22] MEDS: DOCUSATE SODIUM 100 MG CAPSULE (FP) PO SCH ×3 (06:14→22:32)
[2019-04-22] MEDS: GABAPENTIN 300 MG CAPSULE PO SCH ×3 (06:14→22:32)
[2019-04-22 07:04] LABS: HEMOGLOBIN 12.2 GM/dL (11.7-16.9); MCH 33.6 pg (25.7-33.7); MCHC 34.9 g/dl (32.0-35.9); MEAN CELL VOLUME 96.1 fl (80-96); MEAN PLT VOLUME 9.5 fl (7.5-11.1); PLATELET COUNT 148 K/MM3 (134-434); RBC 3.64 M/mm3 (4.00-5.60); RDW 13.1 % (11.9-15.9); WHITE BLOOD COUNT 7.5 K/mm3 (4.0-10.0)
[2019-04-22 08:21] LABS: ALBUMIN 2.7 g/dl (3.4-5.0); BILIRUBIN,TOTAL 0.3 mg/dL (0.2-1); BLOOD UREA NITROGEN 31.1 mg/dL (7-18); CREATININE 4.3 mg/dL (0.55-1.3); POTASSIUM 4.6 mmol/L (3.5-5.1); TOT PROT 5.2 g/dl (6.4-8.2)
[2019-04-22] MEDS: SODIUM CHLORIDE 1,000 ML IV SCH (09:05)
--- NOTE | 2019-04-22 09:06 | PN ---
Progress Note, Physician Chief Complaint: c/o LBP with moving and on/off migraine LISA; no blurred vision; afebrile - Current Medication List Current Medications: Active Medications Acetaminophen/Codeine Phosphate (Tylenol # 3 -) 2 tab PO Q6H PRN PRN Reason: PAIN LEVEL 1-5 Last Admin: 04/21/19 23:22 Dose: 2 tab Docusate Sodium (Colace -) 100 mg PO TID [facility] Last Admin: 04/22/19 06:14 Dose: 100 mg Gabapentin (Neurontin -) 300 mg PO TID [facility] Last Admin: 04/22/19 06:14 Dose: 300 mg Morphine Sulfate (Morphine Sulfate) 2 mg IVPUSH Q3H PRN PRN Reason: PAIN LEVEL 6-10 Last Admin: 04/20/19 09:48 Dose: 2 mg Ondansetron HCl (Zofran Injection) 4 mg IVPUSH Q8H PRN PRN Reason: NAUSEA Last Admin: 04/21/19 05:16 Dose: 4 mg - Objective Vital Signs: Vital Signs Temperature 98.9 F 04/22/19 06:24 Pulse Rate 59 L 04/22/19 06:24 Respiratory Rate 04/22/19 06:24 Blood Pressure 110/68 04/22/19 06:24 O2 Sat by Pulse Oximetry (%) 97 04/21/19 21:00 Constitutional: Yes: No Distress Eyes: Yes: Conjunctiva Clear HENT: Yes: Atraumatic Neck: Yes: Supple Cardiovascular: Yes: Regular Rate and Rhythm Respiratory: Yes: CTA Bilaterally Gastrointestinal: Yes: Soft. No: Tenderness Genitourinary: No: Hematuria Musculoskeletal: No: Joint Stiffness, Joint Swelling Extremities: No: Cold, Cool, Cyanosis Edema: No Integumentary: No: Rash, Venous Stasis Changes Neurological: Yes: WNL, Alert, Oriented ...Motor Strength: WNL Psychiatric: Yes: WNL, Alert, Oriented. No: Agitated, Suicidal Ideation Labs: CBC, BMP 04/22/19 05:35 04/22/19 05:35 INR, PTT INR 0.96 (0.83-1.09) 04/19/19 10:09 - ....Imaging Other: Report Reviewed Assessment/Plan 44 YOM h/o chronic LBP and migraine LISA admitted with ARF of unknown etiology renal and bladder US c/w thickened urinary bladder and prostate nodule; will need eval r/o malignancy d/w pt will need cystoscopy and prostate nodule biopsy per - will ask in eval inpt but pt needs close f/u with outpt dw pt the above he is aware also will ask NS dr Roque for LBP eval; will need f/u with NS for LBP and neurology f/u for migraines closely after DC d/w pt renal fct some labs still pending; pt agreed for HIV hepatitis testing - will send tests; will need close f/u renal dr outpt and renal biopsy per renal dr; pt received toradol at admission in ER, biopsy postponed for 1 week d/w pt
[2019-04-22] MEDS: ACETAMINOPHEN WITH CODEINE 300MG/30MG TABLET PO PRN (10:07)
--- NOTE | 2019-04-22 12:14 | PN ---
Progress Note (short form) - Note Progress Note: Renal follow up for SHONDA Seen and examined at the bedside awake and alert had back pain this morning, improved s/p pain medications no leg swelling, shortness of breath, chest pain, abdominal pain, fever or chills no confusion or lethargy Vital Signs Temperature 98.9 F 04/22/19 06:24 Pulse Rate 59 L 04/22/19 06:24 Respiratory Rate 20 04/22/19 06:24 Blood Pressure 110/68 04/22/19 06:24 O2 Sat by Pulse Oximetry (%) 97 04/21/19 21:00 Intake & Output 04/19/19 04/20/19 04/21/19 04/22/19 23:59 23:59 23:59 23:59 Intake Total 566 476 7857 Output Total 100 200 Balance 350 479 4754 Weight 68.946 kg NAD awake and alert neck supple, no JVD RRR, no M/R CTA soft NT/ND no LE edema no skin rash CBC, BMP 04/22/19 05:35 04/22/19 05:35 Current Medications Acetaminophen/Codeine Phosphate (Tylenol # 3 -) 2 tab PO Q6H PRN PRN Reason: PAIN LEVEL 1-5 Last Admin: 04/22/19 10:07 Dose: 2 tab Docusate Sodium (Colace -) 100 mg PO TID [facility] Last Admin: 04/22/19 06:14 Dose: 100 mg Gabapentin (Neurontin -) 300 mg PO TID [facility] Last Admin: 04/22/19 06:14 Dose: 300 mg Morphine Sulfate (Morphine Sulfate) 2 mg IVPUSH Q3H PRN PRN Reason: PAIN LEVEL 6-10 Last Admin: 04/20/19 09:48 Dose: 2 mg Ondansetron HCl (Zofran Injection) 4 mg IVPUSH Q8H PRN PRN Reason: NAUSEA Last Admin: 04/21/19 05:16 Dose: 4 mg 44 year old gentleman with history of cervical radiculopathy who presented with lower back pain and found to have SHONDA. 1. SHONDA of unclear etiology 2. Lower back pain 3. Hx of radiculopathy Renal function stable. UPCR is 0.3, which is microabluminuria range and not consistent with GN UA w/o active sediment Serologic studies collected, results pending Planned for renal biopsy on Friday. Can be done as outpatient. Imaging studies show no obstruction or evidence of pylonephritis. Urine cultures negative D/C IVF Avoid NSIAD use given low eGFR no acute indication for dialysis at this time discussed with PMD Thank you Aquiles Valdes DO
[2019-04-22] MEDS: POLYETHYLENE GLYCOL 3350 119 GM BTL PO SCH (12:54)
--- NOTE | 2019-04-22 13:51 | PN ---
Progress Note (short form) - Note Progress Note: NEUROSURGERY CONSULT DICTATED H/o C6-7 ACDF and migraine. c/o 5 days h/o acute R mid-low back pain, right more that left with nausea and vomiting. Also c/o numbness of R L L foot. Denies fever, chills, no blood in the urine. Denies h/o kidney stones and not on NSAID. PE: AF, VSS HEENT- NC/At; Neck- supple, incision healed; Cor- RRR; Lungs- CTA B; Abd- benign ; Ext- no sign of DVT CN- intact; Motor- 5/5 except R EHL/TA/Ev/In 4, R gatroc 4+; LEHL/TA 4+; sensation- decreased LT/PP/vibration R L5-S1; DTR- hyporeflexic, no LTS; Back- tender R paraspinal and subcostal region, + SLR on R at 40 degrees Cr 4.3; BUN 31.1; HgA1C 4.[address] Abd- (focus on LS spine) L4-5 DDD with lat recess narrowing LBP and R > L L5-S1 radiculopathy LS spine MRI non contrast to better evaluate L4-5 and L5-S1 levels Cont eval and tx of decreased renal function Will hold off additional meds or increase neurontin given renal function status
--- NOTE | 2019-04-22 14:55 | CONS ---
DATE OF CONSULTATION: DATE OF DICTATION: 04/22/2019 REQUESTING PHYSICIAN: Hannah Calderon MD CONSULTING PHYSICIAN: Shmuel Roque MD, Neurosurgery. CHIEF COMPLAINT: Right-sided back pain greater than left with lumbar radiculopathy. HISTORY OF PRESENT ILLNESS: Patient is a 44-year-old, right-handed male with cervical disk disease, status post anterior cervical diskectomy and fusion at the C6-7 level, and migraine headache, who complains of about a 4-5-day history of acute onset of right-sided mid and lower back pain. He also experiences numbness and tingling in his foot right greater than left. He denies any weakness. There is no bowel or bladder incontinence. Five days ago, in addition to the pain, he experienced increasing nausea and vomiting. He came to the emergency room 2 days later, was found to have an elevated creatinine and BUN. Those levels have remained about the same since. He still has no fevers or chills and was not found to have any nephrolithiasis. He has undergone a fairly extensive urological evaluation, thus far. Presently, his pain is controlled with medications. PAST MEDICAL HISTORY: Significant for migraine headache, cervical diskectomy and fusion C6-7. CURRENT MEDICATION: Includes gabapentin, Colace, MiraLAX, Tylenol No. 3, morphine, and Zofran. ALLERGIES: CIPRO; LEVOFLOXACIN. SOCIAL HISTORY: He does not smoke, but does use marijuana. He works in a [employer] company. REVIEW OF SYSTEMS: Otherwise negative for other major constitutional, head and neck, cardiovascular, pulmonary, gastrointestinal, genitourinary, endocrinological, neurological or psychological problem except for the above. PHYSICAL EXAMINATION: Vital Signs: Temperature is 98.9, blood pressure is 110/60 with pulse rate of 59, O2 saturation is 97% on room air. HEENT: Examination shows him to be normocephalic, atraumatic, anicteric. Neck: Supple. Left side anterior cervical incision has healed well. Coronary: Examination demonstrated regular rhythm. Lungs: Clear bilaterally. Abdomen: Benign. Extremities: Examination shows no signs of DVT. Neurologic: He is awake, alert, and oriented x4. Cranial nerves examination is intact 2 through 12. Motor examination shows 5/5 strength, except right foot dorsiflexion including extensor hallucis longus, tibialis anterior, foot inversion and foot eversion which are 4-minus, right foot plantarflexion is 4/5, left foot dorsiflexion 4+/5. Sensory examination shows diminished sensation to pinprick, light touch, and vibratory sensation in the right L5 and S1 distribution. Deep tendon reflexes are hyporeflexive throughout. There is no pathological long-tract sign. Examination of the back shows paraspinal muscle spasm on the right side with focal tenderness. There is also some subcostal tenderness. There is a positive straight leg raise on the right side at about 40 degrees. LABORATORY: Examination shows sodium to be 140 and potassium to be 4.6. BUN and creatinine are 31.1 and 44.3, respectively. Estimated GFR is between 14-18. Calcium is 8.0. Hemoglobin A1c is 4.5. Albumin 2.7. White blood cell count is 7.5, hemoglobin is 12.2, platelet count is 148,000. INR is 0.96 and PTT is 33.6. Urinalysis shows 1+ protein and trace ketones, there are 10 WBCs and 2 RBCs, leukocyte esterase trace. Urine culture shows no growth. IMAGING: CT scan of the abdomen did not demonstrate acute abdominal pathology, except for possible thickened bladder wall. With regard to the lumbar spine, there is mild spondylosis with facet hypertrophy in the L4-5 and L5-S1 levels. There is mild lateral recess stenosis at L4-5. There is no acute fracture or dislocation. IMPRESSION: 1. Mid and lower back with right L4, L5, and S1 radiculopathy greater than the left. 2. Impaired renal function with decreased glomerular filtration rate. 3. Migraine headache. 4. History of anterior cervical fusion, C6-7. RECOMMENDATIONS: Patient presents with increasing back pain, lumbar radiculopathy, as well as an elevated BUN/creatinine. He does not take anti-inflammatory medication. He does use marijuana for some of his pain in general. These symptoms have been more severe, over the past 4-5 days. He has no bowel or bladder incontinence. Neurologic examination demonstrated weakness in the right L4, L5, and S1 distribution greater than the left. There is also numbness in the right L5-S1 distribution. He has a positive straight leg raise on the right. CT scan of the abdomen demonstrated the L4-5 degenerative disk disease with mild lateral recess stenosis. His symptoms are consistent with lumbar radiculopathy, at least partially. That would not account for his nausea and vomiting, which is likely the result of his impaired renal function and elevated BUN/creatinine. Further evaluation of the lumbar spine would be appropriate with an MRI of the lumbar spine without contrast. He has not had an MRI done in the lumbar spine in the past, by report. 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 The above was discussed with the patient at bedside. He is already on gabapentin, but that dosage should likely not be increased, given his impaired renal function at this time. The above was discussed with the patient at bedside. All questions were answered. SHMUEL ROQUE M.D. LOI/[id number]
[2019-04-22] MEDS: ONDANSETRON 4 MG/2 ML VIAL IVPUSH PRN (17:50)
[2019-04-22] MEDS: ACETAMINOPHEN 325 MG TABLET (FP) PO PRN (17:58)
[2019-04-22] MEDS: MORPHINE SULFATE 2 MG/ML VIAL IVPUSH PRN (22:27)
[2019-04-23] MEDS: POLYETHYLENE GLYCOL 3350 119 GM BTL PO SCH (00:13)
[2019-04-23] MEDS: ACETAMINOPHEN 325 MG TABLET (FP) PO PRN (06:01)
[2019-04-23] MEDS: GABAPENTIN 300 MG CAPSULE PO SCH ×2 (06:02→13:11)
[2019-04-23] MEDS: DOCUSATE SODIUM 100 MG CAPSULE (FP) PO SCH ×2 (06:02→13:11)
[2019-04-23] MEDS ORDERED: POLYETHYLENE GLYCOL 3350 119 GM BTL PO PRN (06:39)
--- NOTE | 2019-04-23 06:47 | PN ---
Progress Note, Physician - Current Medication List Current Medications: Active Medications Acetaminophen (Tylenol -) 650 mg PO Q6H PRN PRN Reason: HEADACHE Last Admin: 04/23/19 06:01 Dose: 650 mg Acetaminophen/Codeine Phosphate (Tylenol # 3 -) 2 tab PO Q6H PRN PRN Reason: PAIN LEVEL 1-5 Last Admin: 04/22/19 10:07 Dose: 2 tab Docusate Sodium (Colace -) 100 mg PO TID [facility] Last Admin: 04/23/19 06:02 Dose: 100 mg Gabapentin (Neurontin -) 300 mg PO TID [facility] Last Admin: 04/23/19 06:02 Dose: 300 mg Ondansetron HCl (Zofran Injection) 4 mg IVPUSH Q8H PRN PRN Reason: NAUSEA Last Admin: 04/22/19 17:50 Dose: 4 mg Polyethylene Glycol (Miralax (For Daily Use) -) 17 gm PO BID PRN PRN Reason: CONSTIPATION - Objective Vital Signs: Vital Signs Temperature 98.2 F 04/23/19 06:00 Pulse Rate 72 04/23/19 06:00 Respiratory Rate 20 04/23/19 06:00 Blood Pressure 122/75 04/23/19 06:00 O2 Sat by Pulse Oximetry (%) 97 04/22/19 09:00 Labs: CBC, BMP 04/22/19 05:35 04/22/19 05:35 INR, PTT INR 0.96 (0.83-1.09) 04/19/19 10:09
[2019-04-23 08:19] LABS: BASO % 0.8 % (0-2.0); EOS % 1.6 % (0-4.5); HEMATOCRIT 34.9 % (35.4-49); HEMOGLOBIN 12.3 GM/dL (11.7-16.9); LYMPH % 12.5 % (8-40); MCH 33.6 pg (25.7-33.7); MCHC 35.3 g/dl (32.0-35.9); MEAN PLT VOLUME 9.9 fl (7.5-11.1); MONO % 9.2 % (3.8-10.2); NEUT % 75.9 % (42.8-82.8); PLATELET COUNT 164 K/MM3 (134-434); RBC 3.67 M/mm3 (4.00-5.60); RDW 13.2 % (11.9-15.9); WHITE BLOOD COUNT 7.6 K/mm3 (4.0-10.0)
[2019-04-23] MEDS ORDERED: TIZANIDINE HCL 2 MG TABLET PO PRN (08:20)
--- NOTE | 2019-04-23 08:20 | PN ---
Progress Note (short form) - Note Progress Note: NEUROSURGERY Some back pain and sciatica PE: AF, VSS HEENT- NC/At; Neck- supple, incision healed; Cor- RRR; Lungs- CTA B; Abd- benign ; Ext- no sign of DVT CN- intact; Motor- 5/5 except R EHL/TA/Ev/In 05/29, R gatroc 4+; LEHL/TA 4+; sensation- decreased LT/PP/vibration R L5-S1; DTR- hyporeflexic, no LTS; Back- tender R paraspinal and subcostal region, + SLR on R at [address] Abd- (focus on LS spine) L4-5 DDD with lat recess narrowing MRI LS spine- small R L2-3 paracentral annular bulge; L3-4 L4-5 DDD > L5-S1, minimal L5-S1 central disc bulge LBP and R > L radiculopathy Add muscle relaxant low dose prn (zanaflex ordered), given renal issues Cont eval and tx of decreased renal function Cont neurontin given renal function status Pt aware of the above
[2019-04-23 08:49] LABS: BLOOD UREA NITROGEN 27.2 mg/dL (7-18); CALCIUM 7.7 mg/dL (8.5-10.1); CREATININE 3.8 mg/dL (0.55-1.3); POTASSIUM 4.1 mmol/L (3.5-5.1)
[2019-04-23] MEDS ORDERED: PT OWN MED DRAWER 7, Y5N ONE (09:14)
[2019-04-23 09:38] LABS: ERYTHROCYTE SEDIMENTATION RATE 14 mm/hr (0-10)
[2019-04-23] MEDS ORDERED: TOPIRAMATE 25 MG TABLET (FP) PO SCH ×2 (10:00)
--- NOTE | 2019-04-23 11:45 | PN ---
Progress Note (short form) - Note Progress Note: Renal follow up for SHONDA Seen and examined at the bedside awake and alert back pain controlled well no leg swelling, shortness of breath, chest pain, abdominal pain, fever or chills no confusion or lethargy making urine Vital Signs Temperature 98.3 F 04/23/19 07:35 Pulse Rate 75 04/23/19 07:35 Respiratory Rate 20 04/23/19 07:35 Blood Pressure 142/93 04/23/19 07:35 O2 Sat by Pulse Oximetry (%) 97 04/22/19 09:00 Intake & Output 04/20/19 04/21/19 04/22/19 04/23/19 23:59 23:59 23:59 23:59 Intake Total 800 1800 Output Total 200 Balance 600 1800 NAD awake and alert neck supple, no JVD RRR, no M/R CTA soft NT/ND no LE edema no skin rash CBC, BMP 04/23/19 07:05 04/23/19 07:05 Current Medications Acetaminophen (Tylenol -) 650 mg PO Q6H PRN PRN Reason: HEADACHE Last Admin: 04/23/19 06:01 Dose: 650 mg Acetaminophen/Codeine Phosphate (Tylenol # 3 -) 2 tab PO Q6H PRN PRN Reason: PAIN LEVEL 1-5 Last Admin: 04/22/19 10:07 Dose: 2 tab Docusate Sodium (Colace -) 100 mg PO TID [facility] Last Admin: 04/23/19 06:02 Dose: 100 mg Gabapentin (Neurontin -) 300 mg PO TID [facility] Last Admin: 04/23/19 06:02 Dose: 300 mg Ondansetron HCl (Zofran Injection) 4 mg IVPUSH Q8H PRN PRN Reason: NAUSEA Last Admin: 04/22/19 17:50 Dose: 4 mg Polyethylene Glycol (Miralax (For Daily Use) -) 17 gm PO BID PRN PRN Reason: CONSTIPATION Last Admin: 04/23/19 09:17 Dose: 17 gm Tizanidine HCl (Tizanidine Hcl) 2 mg PO Q8H PRN PRN Reason: MUSCLE SPASMS Last Admin: 04/23/19 09:21 Dose: 2 mg Topiramate (Topamax -) 25 mg PO BID [facility] Last Admin: 04/23/19 09:16 Dose: 25 mg 44 year old gentleman with history of cervical radiculopathy who presented with lower back pain and found to have SHONDA. 1. SHONDA of unclear etiology 2. Lower back pain 3. Hx of radiculopathy Renal function finally showing signs of improvement UPCR is 0.3, which is microabluminuria range and not consistent with GN UA w/o active sediment Serologic studies collected, results pending Will schedule tentative renal biopsy for Friday or Friday. Will repeat labs again on Friday and continued improvement in renal function seen can cancel biopsy. Imaging studies show no obstruction or evidence of pylonephritis. Urine cultures negative Avoid NSIAD use given low eGFR no acute indication for dialysis at this time discussed with PMD stable for discharge from renal perspective with close follow up Thank you Aquiles Valdes DO
--- NOTE | 2019-04-23 15:42 | DS ---
Physical Examination Vital Signs: Vital Signs Temperature 98.3 F 04/23/19 07:35 Pulse Rate 75 04/23/19 07:35 Respiratory Rate 20 04/23/19 07:35 Blood Pressure 142/93 04/23/19 07:35 O2 Sat by Pulse Oximetry (%) 97 04/22/19 09:00 Findings/Remarks: feels better less pain; seen by NS and DC home with close f/u was constipated; received colace and miralax and had BM d/w pt to limit opiates and controlled substances as much as possible; pain management f/u outpt; pt is aware of risks fall tolerance dependence constipation, respiratory depression with opiates pt asked for note to RTC - d/w renal dr Valdes to RTC the day after renal biopsy on Friday (scheduled 04/25) d/w pt Constitutional: Yes: No Distress, Calm Eyes: Yes: Conjunctiva Clear HENT: Yes: Atraumatic Neck: Yes: Supple Cardiovascular: Yes: Regular Rate and Rhythm Respiratory: Yes: CTA Bilaterally Gastrointestinal: Yes: Soft. No: Tenderness Renal/: No: Hematuria Musculoskeletal: No: Joint Stiffness, Joint Swelling Extremities: No: Cold, Cool, Cyanosis Edema: No Integumentary: No: Rash, Venous Stasis Changes Neurological: Yes: WNL, Alert, Oriented ...Motor Strength: WNL Psychiatric: Yes: WNL, Alert, Oriented. No: Agitated, Suicidal Ideation Labs: CBC, BMP 04/23/19 07:05 04/23/19 07:05 Discharge Summary Problems reviewed: Yes Reason For Visit: HIGH SERUM CREATININE Current Active Problems SHONDA (acute kidney injury) (Acute) Back pain (Acute) Elevated serum creatinine (Acute) Nausea & vomiting (Acute) Procedures: Principal: 44 YOM chronic LBP and chronic migraines admitted with ARF Other Procedures: seen by renal; serologies and US and w/u done per renal; Hospital Course: developed LBP and LISA seen by NS; pain meds prn; bladder prostate US abNL seen by ; renal fct improved with supportive tx; pt DC home and close f/u as advised d/w pt Condition: Stable - Instructions Diet, Activity, Other Instructions: f/u PCP and renal dr as advised; renal biopsy per renal; f/u for prostate and bladder abnormalities; GI f/u liver hemangiomas; pain management eval for chronic pain; stop using marijuana and non-prescribed drugs; take meds as advised only; avoid NSaids (motrin, aleve) until cleared by renal dr Valdes; good po hydration; RTER if worse or recurrent c/o; Referrals: Vipul Calderon MD [Primary Care Provider] - Holden Villar MD [Staff Physician] - Shmuel Roque MD [Staff Physician] - Shmuel Pleitez MD [Staff Physician] - Darin Mckeon MD [Staff Physician] - Aquiles Valdes MD [Staff Physician] - Disposition: HOME - Home Medications Comprehensive Discharge Medication List: Ambulatory Orders Gabapentin 300 mg PO TID 04/20/19 Acetaminophen [Tylenol .Regular Strength -] 650 mg PO Q6H PRN tablet 04/23/19 Docusate Sodium [Colace -] 100 mg PO TID PRN capsule 04/23/19 Polyethylene Glycol 3350 [Miralax 119 gm Btl -] 17 gm PO BID PRN bottle Topiramate [Topamax -] 25 mg PO BID PRN #10 tablet 04/23/19
[2019-04-23 15:53] VITALS: BP 131/81; PULSE 68; TEMP 98.2
--- NOTE | 2019-04-23 15:56 | CON.GU ---
Consult Consult Specialty:: Referred by:: Medicine Reason for Consultation:: prostate nodule - History of Present Illness Chief Complaint: prostate nodule History of Present Illness: 44 year old man who presents with right sided pain. He has a history of lumbar disc herniation and nerve impingement. He voids frequently. Imaging reveals a thickened bladder wall and a prostate nodule on US. His creatinine is also elevated but there is no obstruction. He denies and family history of prostate or breast cancer. He has a history of urethral dilitation in the past. He has one child and has no plans for more - History Source History Provided By: Patient, Medical Record Limitations to Obtaining History: No Limitations - Past Medical History [employer] WORK[employer] AIDE: Yes: Migraine Gastrointestinal: Yes: Irritable Bowel Disease Renal/: Yes: Other Infectious Disease: Yes: Other (Sinusitis) Musculoskeletal: Yes: Other (neck pain) Additional Medical History: On Methadone (tappering dose) - Past Surgical History Additional Surgical History: neck surgery on herniated disks - Alcohol/Substance Use Hx Alcohol Use: No - Smoking History Smoking history: Current every day smoker Have you smoked in the past 12 months: Yes Aproximately how many cigarettes per day: 5 If you are a former smoker, when did you quit?: 07/17/17 Home Medications - Allergies Allergies/Adverse Reactions: Allergies Allergy/AdvReac Type Severity Reaction Status Date / Time ciprofloxacin Allergy Severe Verified 03/09/18 07:17 levofloxacin [From Levaquin] Allergy Intermediate Verified 03/09/18 07:17 - Home Medications Home Medications: Ambulatory Orders Gabapentin 300 mg PO TID 04/20/19 Acetaminophen [Tylenol .Regular Strength -] 650 mg PO Q6H PRN tablet 04/23/19 Docusate Sodium [Colace -] 100 mg PO TID PRN capsule 04/23/19 Polyethylene Glycol 3350 [Miralax 119 gm Btl -] 17 gm PO BID PRN bottle Topiramate [Topamax -] 25 mg PO BID PRN #10 tablet 04/23/19 Review of Systems - Review of Systems Genitourinary: reports: Frequency, Other Physical Exam- Vital Signs: Vital Signs Temperature 98.3 F 04/23/19 07:35 Pulse Rate 75 04/23/19 07:35 Respiratory Rate 20 04/23/19 07:35 Blood Pressure 142/93 04/23/19 07:35 O2 Sat by Pulse Oximetry (%) 97 04/22/19 09:00 Renal/: No: Bladder Distention, CVA Tenderness - Left, CVA Tenderness - Right , Walker Present, Hematuria Labs: CBC, BMP 04/23/19 07:05 04/23/19 07:05 Imaging - Results Cat Scan: Report Reviewed Ultrasound: Report Reviewed Problem List - Problems (1) Bladder wall thickening Assessment/Plan: recommend cystoscopy as outpatient. patient understands the need for follow up Code(s): N32.89 - OTHER SPECIFIED DISORDERS OF BLADDER (2) Prostate nodule Assessment/Plan: no obvious risk factors for prostate cancer. no PSA history. Will send PSA as outpatient and mpMRI of prostate if indicated. Code(s): N40.2 - NODULAR PROSTATE WITHOUT LOWER URINARY TRACT SYMPTOMS
[2019-04-23 17:07] LABS: ATYPICAL pANCA <1:20 titer (Neg:<1:20); C-ANCA <1:20 titer (Neg:<1:20)
[2019-04-23 23:06] LABS: HEP B CORE AB, TOT Negative (Negative)
[2019-04-27 07:07] LABS: ANTI-DNAse B <78 U/mL (0-120)
== END 2019-04-23 16:26 | disposition home or self-care (01) | DRG 552 ==
LOC: JER 09:01 → JERBED 12:01 → J8W 20:45
PROVIDERS: ADMIT Specialist; ATTEND Specialist
DX: M54.16 Radiculopathy, lumbar region (principal); N17.9 Acute kidney failure, unspecified; M54.12 Radiculopathy, cervical region; M51.26 Other intervertebral disc displacement, lumbar region; M54.9 Dorsalgia, unspecified; M54.2 Cervicalgia; N40.2 Nodular prostate without lower urinary tract symptoms; K58.9 Irritable bowel syndrome, unspecified; D72.829 Elevated white blood cell count, unspecified; R11.2 Nausea with vomiting, unspecified; J32.9 Chronic sinusitis, unspecified; G43.909 Migraine, unspecified, not intractable, without status migrainosus; N32.89 Other specified disorders of bladder; I10 Essential (primary) hypertension; E78.00 Pure hypercholesterolemia, unspecified; K29.70 Gastritis, unspecified, without bleeding; F17.210 Nicotine dependence, cigarettes, uncomplicated
CPT/HCPCS: 36415; 72148-TC; 74176-TC; 76775-TC; 76856-TC; 80048; 80053; 80307; 81003; 82436; 82550; 82565; 82570; 82728; 83036; 83520; 83540; 84133; 84155; 84156; 84165; 84300; 85025; 85027; 85610; 85651; 85730; 86038; 86140; 86162; 86215; 86225; 86256; 86431; 86704; 86705; 86706; 86707; 87086; 87205; 87389; 87902; 99285-25; J0131; J7030

== ENCOUNTER 2021-04-23 12:05 | Emergency (ER) | payer OTHER ==
[2021-04-23 12:12] VITALS: BP 123/77; TEMP 99; BMI 23.3
[2021-04-23 12:56] VITALS: PULSE 96
[2021-04-24 12:09] LABS: SARS-CoV-2 NAA Detected (Not Detected)
== END 2021-04-23 12:45 | disposition home or self-care (01) ==
LOC: FER 12:05
DX: U07.1 COVID-19 (principal)
CPT/HCPCS: 99283-25; C9803; U0003; U0005